=== PATIENT | female | born 1990 | race Caucasian/White ===

== ENCOUNTER 2018-09-20 19:38 | Emergency (ER) | payer OTHER, MEDICAID, SELFPAY ==
[2018-09-20 19:41] VITALS: BP 130/90; PULSE 115; RESP 18; TEMP 36.7; O2SAT 97
--- NOTE | 2018-09-20 20:55 | DI.CT.S_ITS ---
PROCEDURE: CT HEAD/BRAIN WO CON INDICATIONS: fall MS TECHNIQUE: Noncontrast 4.5 mm thick angled axial sections acquired from the foramen magnum to the vertex, with coronal and sagittal reformats. For radiation dose reduction, the following was used: automated exposure control, adjustment of mA and/or kV according to patient size. COMPARISON: None. FINDINGS: Image quality: Excellent. CSF spaces: Basal cisterns are patent. No extra-axial fluid collections. Ventricles are normal in size and shape. Brain: No midline shift. No intracranial masses or hemorrhage. Rivers-white matter interface is normal. Skull and face: Calvarium and visualized facial bones are intact, without suspicious lesions. Sinuses: Visualized sinuses and mastoids are clear. IMPRESSION: No acute intracranial abnormality. Dictated by: Syed Leslie M.D. on 09/20/2018 at 21:21 Approved by: Syed Leslie M.D. on 09/20/2018 at 21:22
--- NOTE | 2018-09-20 20:55 | DI.CT.S_ITS ---
PROCEDURE: CT CERVICAL SPINE WO CON INDICATIONS: fall nmidline pain TECHNIQUE: Noncontrast 3 mm thick sections acquired from the skull base to the T4 level. Sagittal and coronal reformats were then constructed. For radiation dose reduction, the following was used: automated exposure control, adjustment of mA and/or kV according to patient size. COMPARISON: None. FINDINGS: Image quality: Excellent. Bones: No fractures or dislocations. Visualized superior ribs are intact. Soft tissues: Prevertebral soft tissues are normal in thickness. No paravertebral hematomas. No apical pneumothoraces. IMPRESSION: No fracture. Dictated by: Syed Leslie M.D. on 09/20/2018 at 21:23 Approved by: Syed Leslie M.D. on 09/20/2018 at 21:24
--- NOTE | 2018-09-20 20:59 | ED_ITS ---
HPI - Neuro Symptoms/Deficit General Chief Complaint: Neuro Symptoms/Deficit Stated Complaint: neck pain injury/has MS today Time Seen by Provider: 09/20/18 20:51 Source: patient Mode of arrival: wheelchair Limitations: no limitations History of Present Illness HPI Narrative: Patient is a 28-year-old female who presents with ground level fall and syncope. She states that she has relapsing MS, she frequently passes out. Today she was sitting in the chair and gardening she woke up on the ground. She says that is something that has happened to her. However she is having severe neck pain. She thinks that she is having an episode of MS because her hands and feet get numb which is happening now. She was previously followed by Neurology in [place] but recently moved in does not have a current neurologist or PCP. She was diagnosed with MS by spinal tap and multiple MRIs and clinical symptoms. Onset (ago): hour(s) On Anticoagulants: No Related Data Home Medications Medication Instructions Recorded Confirmed citalopram 10 mg PO DAILY 09/20/18 09/20/18 cyclobenzaprine 5 mg PO BEDTIME PRN 09/20/18 09/20/18 gabapentin 600 mg PO TID 09/20/18 09/20/18 pantoprazole [Protonix] 40 mg PO BID 09/20/18 09/20/18 tizanidine 2 mg PO TID 09/20/18 09/20/18 Allergies Allergy/AdvReac Type Severity Reaction Status Date / Time diphenhydramine Allergy Severe Anaphylaxis Verified 09/20/18 19:47 amoxicillin Allergy Intermediate Rash Verified 09/20/18 19:47 metformin Allergy Intermediate Rash Verified 09/20/18 19:47 Penicillins Allergy Intermediate Verified 09/20/18 19:47 Sulfa (Sulfonamide Allergy Intermediate Rash Verified 09/20/18 19:47 Antibiotics) Review of Systems Review of Systems GENERAL: Denies chills, fatigue, malaise, fever, sweats, travel HEENT: Denies sinus pain, ear pain, sore throat, difficulty swallowing, neck pain RESPIRATORY: Denies dyspnea, cough, wheezing, hemoptysis, sputum. CARDIOVASCULAR: Denies chest pain, palpitations, orthopnea, edema GASTROINTESTINAL: Denies nausea, vomiting, abdominal pain, diarrhea, constipation, melena. : Denies dysuria, frequency, incontinence, hematuria, urinary retention, flank pain. MUSCULOSKELETAL: + neck pain Denies weakness, joint pain, or bony pain SKIN: No rash, no erythema, no pruritus NEUROLOGIC: See HPI PSYCHIATRIC: No concerning psychosocial issues. 12 point review of systems is negative except for those stated above and HPI [facility] Medical History Asthma (Acute) Benign tumor of groin (Acute) Diabetes (Acute) H/O: hysterectomy (Acute) Multiple sclerosis (Acute) Obesity (Acute) Surgical History H/O hernia repair (Acute) History of appendectomy (Acute) History of tonsillectomy (Acute) Hx of cholecystectomy (Acute) Social History Smoking Status: Current every day smoker Social History Smoking Status: Current every day smoker Exam Initial Vital Signs Initial Vital Signs: Vital Signs Temperature 98.1 F 09/20/18 19:41 Pulse Rate 115 H 09/20/18 19:41 Respiratory Rate 18 09/20/18 19:41 Blood Pressure 130/90 09/20/18 19:41 Pulse Oximetry 97 09/20/18 19:41 GENERAL: Overweight female appears in pain HEENT: Head atraumatic,EOMI, pupils reactive, face symmetric, [moist] mucous membranes NECK: C-collar placed in ED extreme tenderness midline CARDIOVASCULAR: Regular rate and rhythm without murmurs, rubs or gallops. RESPIRATORY: Breath sounds equal bilaterally, no wheezes rales or rhonchi. ABDOMEN: Soft, nontender. Normoactive bowel sounds all 4 quadrants. No guarding or rebound. EXTREMITIES: Normal range of motion, no clubbing or edema. Neurovascularly intact NEUROLOGICAL: Alert and oriented x4.Normal gait and speech. Cranial nerves II through XII grossly intact. Parts Counter Salesperson strength equal bilaterally decreased sensation on the right thigh similar to previous MS episodes SKIN: Warm, dry, no laceration, no petechiae, no rashes or lesions. Course Orders Ordered: ED Orders 09/20/18 20:04 EKG-12 Lead Stat 09/20/18 20:55 CT cervical spine wo con Stat CT head/brain wo con Stat 09/20/18 21:29 Complete Blood Count AUTO DIFF Stat Comprehensive Metabolic Panel Stat Discontinued Medications Hydrocodone Bitart/Acetaminophen (Vicodin Prepack) 1 bottle MISC SEEINSTR ONE Stop: 09/20/18 23:07 Last Admin: 09/20/18 23:29 Dose: 1 bottle Cyclobenzaprine HCl (Flexeril) 5 mg PO NOW ONE Stop: 09/20/18 22:21 Last Admin: 09/20/18 22:31 Dose: 5 mg Hydromorphone HCl (Dilaudid) 0.5 mg IV NOW ONE Stop: 09/20/18 22:21 Last Admin: 09/20/18 22:31 Dose: 0.5 mg Ketorolac Tromethamine (Toradol) 30 mg IV NOW ONE Stop: 09/20/18 20:57 Last Admin: 09/20/18 21:36 Dose: 30 mg Vital Signs - 8 hr 09/20/18 19:41 09/20/18 21:51 09/20/18 23:41 Temperature 98.1 F Pulse Rate 115 H 105 H 98 H Respiratory Rate 18 22 20 Blood Pressure 130/90 121/75 Blood Pressure [Right Arm] 132/72 Pulse Oximetry 97 96 98 MDM - Neuro Symptoms/Deficit Lab Data Attestation: I reviewed the patient's lab results. Result diagrams: 09/20/18 21:29 09/20/18 21:29 Lab Results 09/20/18 09/20/18 Range/Units 21:29 21:29 WBC 11.0 (4.5-11.0) X10^3/uL RBC 4.86 (4.0-5.2) X10^6/uL Hgb 13.9 (12.0-16.0) g/dL Hct 40.9 (36-46) % MCV 84.1 (80-100) fL MCH 28.7 (26-34) PG MCHC 34.1 (30-36) % RDW 14.5 (11.6-14.8) % Plt Count 207 (150-400) X10^3/uL Neut % (Auto) 64.8 (50-75) % Lymph % (Auto) 27.5 (25-40) % Cook % (Auto) 5.4 (3-14) % Eos % (Auto) 1.9 L (2-4) % Baso % (Auto) 0.4 (0-2) % Neut # (Auto) 7100 H (9702-3423) /uL Lymph # (Auto) 3000 (6123-0138) /uL Cook # (Auto) 600 (0-900) /uL Eos # (Auto) 200 (0-450) /uL Baso # (Auto) 0 (0-100) /uL Sodium 140 (137-145) mmol/L Potassium 3.4 (3.4-5.1) mmol/L Chloride 104 (98-107) mmol/L Carbon Dioxide 27 (22-32) mmol/L BUN 9 (7-17) mg/dL Creatinine 0.50 L (0.52-1.04) mg/dL Estimated GFR > 60.0 (>60) mL/min BUN/Creatinine Ratio 18.0 (6-22) Glucose 112 H (70-100) mg/dL Calcium 9.4 (8.4-10.2) mg/dL Total Bilirubin 0.2 (0.2-1.3) mg/dL AST 25 (14-36) IU/L ALT 50 (9-52) IU/L Alkaline Phosphatase 83 (38-126) U/L Total Protein 7.1 (6.3-8.2) g/dL Albumin 4.0 (3.5-5.0) g/dL Globulin 3.1 (1.7-4.1) g/dL Albumin/Globulin Ratio 1.3 (1.0-2.8) Imaging Data CT scan - head: Radiologist's impression: PROCEDURE: XR CHEST 2V INDICATIONS: short of breath TECHNIQUE: 2 views of the chest were acquired. COMPARISON: None. FINDINGS: Surgical changes and devices: None. Lungs and pleura: Lungs are clear. No pleural effusions or pneumothorax. Mediastinum: Mediastinal contours are normal. Heart size is normal. Bones and chest wall: No suspicious bony abnormalities. Soft tissues appear unremarkable. IMPRESSION: No acute process. Dictated by: Syed Leslie M.D. on 09/20/2018 at 20:39 CT Cervical: Radiologist's impression: PROCEDURE: CT CERVICAL SPINE WO CON INDICATIONS: fall nmidline pain TECHNIQUE: Noncontrast 3 mm thick sections acquired from the skull base to the T4 level. Sagittal and coronal reformats were then constructed. For radiation dose reduction, the following was used: automated exposure control, adjustment of mA and/or kV according to patient size. COMPARISON: None. FINDINGS: Image quality: Excellent. Bones: No fractures or dislocations. Visualized superior ribs are intact. Soft tissues: Prevertebral soft tissues are normal in thickness. No paravertebral hematomas. No apical pneumothoraces. IMPRESSION: No fracture. Dictated by: Syed Leslie M.D. on 09/20/2018 at 21:23 MDM Narrative Medical decision making narrative: C-collar removed by myself. She is still quite tender after Toradol. She is given some Dilaudid and Flexeril. Flexeril at home. I discussed stretching and slight movement along with heating pad. She will need a neurologist and PCP, he was given some information at the desktop publishing specialist. Discharge Plan Departure Patient Disposition: Home Clinical Impression: Cervical muscle strain Qualifiers: Encounter type: initial encounter Qualified Code(s): S16.1XXA - Strain of muscle, fascia and tendon at neck level, initial encounter Discharge Date/Time: 09/20/18 23:41 Interventions: ED Discharge Assessment Last Done: 09/20/18 23:41 Instructions: Whiplash Activity Restrictions/Additional Instructions: *You have been diagnosed with cervical strain *What to do: Increase activity as tolerated heating pad, light stretching *Continue to take medications as directed Ibuprofen 600 mg every 6 hours as needed for pain, for 1 week Winkelman 1 tablet every 6 hours if needed for pain *Follow up with your primary care provider in 2-3 days *Return to ER if you should have increased weakness, worsening numbness or tingling, or any new, worsening or concerning symptoms CONTROLLED SUBSTANCE DISCHARGE (Narcotoic/benzodiazepine/Flexeril/Phenergan) 1. You have been prescribed narcotic medications, it does have a cetaminophen/Tylenol/paracetamol in it so do not take extra Tylenol or Tylenol containing products 2. Please understand that we cannot provide further refills of narcotics, benzodiazepines or controlled substances through the ED and her pain management will need to be through your provider. 3. While on these medications you cannot drive or operate heavy machinery. 4. You cannot sign legal documents or perform any duties such as this. 5. As long as you're taking opiate pain medications he should also be taking a stool softener such as Colace, Dulcolax, MiraLAX or prune juice, to help avoid constipation. Prescriptions: No Action gabapentin 600 mg Tablet 600 mg PO TID RF: 0 cyclobenzaprine 5 mg Tablet 5 mg PO BEDTIME PRN (Reason: muscle spasms) RF: 0 tizanidine 2 mg Capsule 2 mg PO TID RF: 0 Protonix [address] For Susp In Packet 40 mg PO BID RF: 0 citalopram 10 mg Tablet 10 mg PO DAILY RF: 0
[2018-09-20] MEDS: KETOROLAC 60 MG/2 ML VIAL 30 MG IV (21:36)
[2018-09-20 21:46] LABS: Add Manual Diff / Slide Review NO; Basophils Absolute Auto 0 /uL (0-100); Basophils Percent Auto 0.4 % (0-2); Eosinophils Absolute Auto 200 /uL (0-450); Eosinophils Percent Auto 1.9 % (2-4); Hematocrit 40.9 % (36-46); Hemoglobin 13.9 g/dL (12.0-16.0); Lymphocytes Absolute Auto 3000 /uL (1100-4500); Lymphocytes Percent Auto 27.5 % (25-40); Mean Corpuscular HGB Conc 34.1 % (30-36); Mean Corpuscular Hemoglobin 28.7 PG (26-34); Mean Corpuscular Volume 84.1 fL (80-100); Monocytes Absolute Auto 600 /uL (0-900); Monocytes Percent Auto 5.4 % (3-14); Neutrophils Absolute Auto 7100 /uL (1500-7000); Neutrophils Percent Auto 64.8 % (50-75); Platelet Count 207 X10^3/uL (150-400); Red Blood Cell Count 4.86 X10^6/uL (4.0-5.2); Red Cell Distribution Width 14.5 % (11.6-14.8)
[2018-09-20 21:51] VITALS: BP 132/72; PULSE 105; RESP 22; O2SAT 96
[2018-09-20 21:58] LABS: Alanine Aminotransferase 50 IU/L (9-52); Albumin Globulin Ratio 1.3 (1.0-2.8); Alkaline Phosphatase 83 U/L (38-126); Aspartate Aminotransferase 25 IU/L (14-36); Bilirubin Total 0.2 mg/dL (0.2-1.3); Blood Urea Nitrogen 9 mg/dL (7-17); Calcium 9.4 mg/dL (8.4-10.2); Carbon Dioxide 27 mmol/L (22-32); Chloride 104 mmol/L (98-107); Estimated Glomerular Filt Rate > 60.0 mL/min (>60); Globulin 3.1 g/dL (1.7-4.1); Glucose 112 mg/dL (70-100); HEMOLYSIS < 15 (0-50); Potassium 3.4 mmol/L (3.4-5.1); Sodium 140 mmol/L (137-145); Total Protein 7.1 g/dL (6.3-8.2)
[2018-09-20] MEDS: HYDROMORPHONE 1 MG INJ 0.5 MG IV (22:31)
[2018-09-20] MEDS: CYCLOBENZAPRINE 5 MG TABLET PO (22:31)
[2018-09-20] MEDS: HYDROCODONE/ACET 5/325 PREPACK 1 BOTTLE MISC (23:29)
[2018-09-20 23:41] VITALS: BP 121/75; PULSE 98; RESP 20; O2SAT 98
== END 2018-09-20 23:41 | disposition home or self-care (01) ==
PROVIDERS: Emergency Provider Emergency Medicine
DX: S16.1XXA Strain of muscle, fascia and tendon at neck level, initial encounter (principal); R55 Syncope and collapse; W18.30XA Fall on same level, unspecified, initial encounter
CPT/HCPCS: 36591; 70450; 72125; 80053; 85025; 93005; 96374; 96375; 99283; 99285; J1170; J1885

== ENCOUNTER 2018-10-14 11:36 | Emergency (ER) | payer SELFPAY ==
[2018-10-14 11:46] VITALS: PULSE 98; RESP 18; TEMP 36.4; O2SAT 98
== END 2018-10-14 13:39 | disposition left against medical advice (07) ==
PROVIDERS: Emergency Provider Emergency Medicine
DX: Z53.21 Procedure and treatment not carried out due to patient leaving prior to being seen by health care provider (principal)
CPT/HCPCS: 99281

== ENCOUNTER 2018-10-16 15:21 | Emergency (ER) | payer OTHER, MEDICAID, SELFPAY ==
[2018-10-16 15:27] VITALS: BP 141/86; PULSE 108; RESP 18; TEMP 36.6; O2SAT 97; BMI 39.9
--- NOTE | 2018-10-16 17:06 | ED_ITS ---
HPI - Neck Pain/Injury General Chief Complaint: Neck Pain/Injury Stated Complaint: neck pain and pain down right arm Time Seen by Provider: 10/16/18 16:51 Source: patient, family () and old records reviewed Mode of arrival: ambulatory Limitations: no limitations History of Present Illness HPI Narrative: This is a 28-year-old female comes emergency department with complaint of neck pain. Patient states that she started having pain about a month ago. She was seen on September 20, she states that she had episode which caused her to fall she had head CT and CT the cervical spine which were both negative. Patient states that she was diagnosed with MS in [place]. She states she has had MRIs as well as evaluation there. She normally takes 10 as needed, gabapentin as as needed she states that she typically gets back pain sometimes pain in her hips as well as numbness in her feet and sometimes numbness in her face and throat. She states that she has pain that radiating down the arms, particularly the right that she has tingling and or numbness. Patient states that she has been able to move her arms. She has been able to ambulate. She has not established with a neurologist locally. She states that she has had some additional episodes and sometimes occasionally falls with these. Most recently was today. Patient states that the pain has been constant, it has been gradually increasing. It did not ever resolved. She has been alternating ibuprofen and Tylenol for pain control. She states she came in today because her daughter is at [facility] for psychiatric care and so they were available to come to the ER. Related Data Home Medications Medication Instructions Recorded Confirmed citalopram 10 mg PO DAILY 09/20/18 10/14/18 cyclobenzaprine 5 mg PO BEDTIME PRN 09/20/18 10/14/18 gabapentin 600 mg PO TID 09/20/18 10/14/18 pantoprazole [Protonix] 40 mg PO BID 09/20/18 10/14/18 tizanidine 2 mg PO TID 09/20/18 10/14/18 acetaminophen [Tylenol Extra 1,000 mg PO Q6H PRN 10/14/18 10/14/18 Strength] ibuprofen 600 mg PO QID PRN 10/14/18 10/14/18 Previous Rx's Medication Instructions Recorded diazepam [Valium] 2 mg PO BID PRN #10 tab 10/16/18 meloxicam [Mobic] 7.5 mg PO DAILY PRN #10 tab 10/16/18 prednisone 50 mg PO DAILY #5 tab 10/16/18 Allergies Allergy/AdvReac Type Severity Reaction Status Date / Time diphenhydramine Allergy Severe Anaphylaxis Verified 10/16/18 15:32 amoxicillin Allergy Intermediate Rash Verified 10/16/18 15:32 metformin Allergy Intermediate Rash Verified 10/16/18 15:32 Penicillins Allergy Intermediate Verified 10/16/18 15:32 Sulfa (Sulfonamide Allergy Intermediate Rash Verified 10/16/18 15:32 Antibiotics) Review of Systems Review of Systems ROS Unobtainable: All systems reviewed & are unremarkable except as noted in HPI and below Constitutional Denies chills, Denies fever(s), Denies lethargy and Denies weakness ENT Ears, Nose, Mouth, and Throat: Denies vertigo, Denies dizziness and Reports neck pain Cardiovascular Denies chest pain, Denies diaphoresis, Denies syncope, Denies dyspnea and Denies dyspnea on exertion Respiratory Denies chest congestion, Denies cough, Denies dyspnea, Denies dyspnea on exertion and Denies wheezing Gastrointestinal Gastrointestinal: Denies abdominal pain, Denies change in bowel habits, Denies fecal incontinence, Denies diarrhea, Denies nausea and Denies vomiting Genitourinary Denies hematuria, Denies flank pain, Denies urinary incontinence and Denies urinary urgency Musculoskeletal Reports as per HPI, Denies abnormal gait, Denies back pain, Reports limited range of motion, Denies muscle weakness, Reports neck pain, Reports numbness, Reports radiating pain into limb (Bilateral arms right greater) and Reports tingling Integumentary/Breasts Denies erythema, Denies rash and Denies unusual bruising Neurologic Denies abnormal movements, Denies abnormal gait, Denies vertigo, Denies dizziness, Denies syncope, Denies focal weakness, Reports numbness, Reports tingling and Denies weakness Allergic/Immunologic Denies wheezing [facility] Social History Smoking Status: Current every day smoker Exam Narrative Exam Narrative: GEN: Obese female, alert and oriented x 3, patient appears to be in moderate distress. HEENT: Atraumatic, pupils are equal round reactive to light, extraocular movements are intact, nares are clear, TMs are clear with no fluid, there is no conjunctival pallor. Throat is clear without any exudates, erythema, tonsillar enlargement or uvular deviation HEART: Regular rate and rhythm without murmur, clicks, rubs. LUNGS:Lungs clear to auscultation, no wheezes, rales, crackles, chest moves symmetrically ABD:bowel sounds normal, soft, non-tender, no guarding, rebound, rigidity, no masses noted, no hepatosplenomegaly :No CVA tenderness BACK: Patient has cervical tenderness throughout the neck. She also has tenderness in the lumbar spine. Patient has muscle tightness/spasm bilaterally in the paraspinals. Patient has normal range of motion, although patient appears uncomfortable sitting up. Patient's gait is normal. Rectal exam is deferred. Muscle strength is 5/5 in upper and lower extremities, DTRs are 2/4 upper and lower extremities. 2+ radial pulses bilaterally. Sensation is intact in the upper and lower extremities. 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 NEURO:CN 2-12 intact, sensation normal. Initial Vital Signs Initial Vital Signs: Vital Signs Temperature 97.8 F 10/16/18 15:27 Pulse Rate 108 H 10/16/18 15:27 Respiratory Rate 18 10/16/18 15:27 Blood Pressure 141/86 H 10/16/18 15:27 Pulse Oximetry 97 10/16/18 15:27 Scores GCS [place] coma scale eye opening: Spontaneous [place] coma scale verbal response: Orientated [place] coma scale motor response: Obey commands Aries coma scale total score: 15 Course Orders Ordered: Discontinued Medications Diazepam (Valium) 5 mg PO NOW ONE Stop: 10/16/18 17:08 Last Admin: 10/16/18 17:48 Dose: 5 mg Ketorolac Tromethamine (Toradol) 60 mg IM NOW ONE Stop: 10/16/18 17:08 Last Admin: 10/16/18 17:48 Dose: 60 mg Prednisone (Deltasone) 60 mg PO NOW ONE Stop: 10/16/18 17:19 Last Admin: 10/16/18 17:48 Dose: 60 mg Tramadol HCl (Ultram 50mg Prepack) 1 bottle MISC SEEINSTR ONE Stop: 10/16/18 18:27 Vital Signs - 8 hr 10/16/18 15:27 Temperature 97.8 F Pulse Rate 108 H Respiratory Rate 18 Blood Pressure 141/86 H Pulse Oximetry 97 MDM - Neck Pain/Injury MDM Narrative Medical decision making narrative: Discussed with patient I do not have imaging capabilities for MRI today, she does not have any acute neurologic changes that are suspicious for warranting emergent MRI and transfer. We discussed possibly doing a repeat CT, she did have repeat fall today but patient is also tender throughout the spine not just in her cervical. Discussed risks versus benefit with patient and was sure dismisses making was decided that the risks of radiation exposure outweighs the benefits of repeat imaging today. Patient and I discussed that there is a potential she could be having a flare of her MS. We discussed referring her to Neurology. Doing a short course of steroids, pain control and muscle relaxant. Patient states that she is starting to run out of her muscle relaxers. Patient was sleeping when I came into the room. She states that her pain is still present but she was able to rest. Discussed signs and symptoms to watch for reasons to return. Plan for short course of steroids, patient would prefer to use our muscle relaxant today, we discussed she cannot combine these medications with her regular medications. Given a prescription for some meloxicam as well. Patient was given referral for Neurology. Discussed red flag symptoms for return. Discharge Plan Departure Patient Disposition: Home Clinical Impression: Neck pain Discharge Date/Time: 10/16/18 18:39 Instructions: DI for Neck Pain Activity Restrictions/Additional Instructions: Follow-up with your physician at your appointment on 10/25/2018. Call for follow-up with Neurology. Take steroids until gone. Take medications as prescribed these medications can make you sleepy do not drive, perform hazards activities or make any major decisions while taking them. Return to the emergency department for new weakness decreased farm forestry and garden workers, and limited to lift or hold objects, loss of bowel or bladder control, rapidly worsening symptoms, altered mental status, new shortness of breath, new chest pain or pressure, swelling in her extremities or other new or concerning symptoms. Prescriptions: New diazepam [Valium] 2 mg tablet 2 mg PO BID PRN (Reason: muscle spasm) Qty: 10 RF: 0 prednisone 50 mg tablet 50 mg PO DAILY Qty: 5 RF: 0 meloxicam [Mobic] 7.5 mg tablet 7.5 mg PO DAILY PRN (Reason: pain) Qty: 10 RF: 0 No Action gabapentin 600 mg Tablet 600 mg PO TID RF: 0 cyclobenzaprine 5 mg Tablet 5 mg PO BEDTIME PRN (Reason: muscle spasms) RF: 0 tizanidine 2 mg Capsule 2 mg PO TID RF: 0 Protonix [address] For Susp In Packet 40 mg PO BID RF: 0 citalopram 10 mg Tablet 10 mg PO DAILY RF: 0 acetaminophen [Tylenol Extra Strength] 500 mg Tablet 1,000 mg PO Q6H PRN (Reason: Pain (Scale Score 4-6)) RF: 0 ibuprofen 600 mg Tablet 600 mg PO QID PRN (Reason: Pain (Scale Score 4-6)) RF: 0 Referrals: Domo Lucio MD [Non-Staff] -
[2018-10-16] MEDS: KETOROLAC 60 MG/2 ML VIAL IM (17:48)
[2018-10-16] MEDS: diazePAM 5 MG TABLET PO (17:48)
[2018-10-16] MEDS: predniSONE 20 MG TABLET 60 MG PO (17:48)
[2018-10-16] MEDS: TRAMADOL 50 MG PREPACK 1 BOTTLE MISC (18:33)
[2018-10-16 18:40] VITALS: BP 136/74; PULSE 97; RESP 18; O2SAT 100
== END 2018-10-16 18:39 | disposition home or self-care (01) ==
PROVIDERS: Emergency Provider Emergency Medicine
DX: M54.2 Cervicalgia (principal)
CPT/HCPCS: 96372; 99282; 99283; J1885

== ENCOUNTER 2018-10-26 11:19 | Emergency (ER) | payer OTHER, MEDICAID, SELFPAY ==
[2018-10-26 11:28] VITALS: BP 121/59; PULSE 101; RESP 19; TEMP 36.7; O2SAT 98; BMI 39.6
--- NOTE | 2018-10-26 11:48 | ED.ABDPAIN ---
HPI - Abdominal Pain <Grisel ZavalaVEENA - Last Filed: 10/26/18 19:52> General Chief Complaint: Abdominal Pain Stated Complaint: pain in stomach Time Seen by Provider: 10/26/18 11:37 Source: patient Mode of arrival: ambulatory Limitations: no limitations History of Present Illness HPI narrative: 28-year-old female with a history of a hysterectomy, cholecystectomy, an appendectomy, presents emergency department today complaining of a sudden onset of severe sharp 10/10 constant umbilical pain that started 4 days ago. She states the pain is worse when she moves and worse when she presses on the area, denies anything that makes it better. She reports associated nausea and decreased appetite. Denies radiation of the pain. Denies fevers, chills, shortness of breath, vomiting, diarrhea, constipation, vaginal discharge, back pain, or dysuria. MD complaint: abdominal pain Onset (ago): hour(s) Pain Consistency: constant Location: periumbilical Severity: severe Severity scale (1-10): 10 Quality: stabbing and sharp Radiation: none Exacerbating factors: movement Associated symptoms: nausea Related Data Home Medications Medication Instructions Recorded Confirmed citalopram 10 mg PO DAILY 09/20/18 10/26/18 cyclobenzaprine 5 mg PO BEDTIME PRN 09/20/18 10/26/18 gabapentin 600 mg PO TID 09/20/18 10/26/18 pantoprazole [Protonix] 40 mg PO BID 09/20/18 10/26/18 acetaminophen [Tylenol Extra 1,000 mg PO Q6H PRN 10/14/18 10/26/18 Strength] ibuprofen 600 mg PO QID PRN 10/14/18 10/26/18 pioglitazone 15 mg PO DAILY 10/26/18 10/26/18 sitagliptin [Januvia] 100 mg PO DAILY 10/26/18 10/26/18 tizanidine 2 mg PO TID 10/26/18 10/26/18 Previous Rx's Medication Instructions Recorded diazepam [Valium] 2 mg PO BID PRN #10 tab 10/16/18 meloxicam [Mobic] 7.5 mg PO DAILY PRN #10 tab 10/16/18 Allergies Allergy/AdvReac Type Severity Reaction Status Date / Time diphenhydramine Allergy Severe Anaphylaxis Verified 10/26/18 11:28 amoxicillin Allergy Intermediate Rash Verified 10/26/18 11:28 metformin Allergy Intermediate Rash Verified 10/26/18 11:28 Penicillins Allergy Intermediate Verified 10/26/18 11:28 Sulfa (Sulfonamide Allergy Intermediate Rash Verified 10/26/18 11:28 Antibiotics) Review of Systems <VEENA Sy - Last Filed: 10/26/18 19:52> Review of Systems REVIEW OF SYSTEMS: GENERAL: Denies fever, chills, malaise, or wt. loss. HENT: No head trauma, sore throat, or dysphagia. EYES: No loss of vision, double vision, eye pain, or irritation. CARDIOVASCULAR: No chest pain, palpitations, or orthopnea. RESPIRATORY: No shortness of breath or cough. GASTROINTESTINAL: Complains of abdominal pain, see HPI GENITOURINARY: No flank pain, urinary incontinence, hesitancy, frequency, or dysuria. Nor dyspareunia. Denies concerns for STIs. Complains of slightly increased vaginal discharge. MUSCULOSKELETAL: No pain, weakness, or trauma. INTEGUMENTARY: No rash, lesions, or pruritus. NEURO: No numbness, tingling, memory loss, confusion, or headaches. PSYCH: No behavior or mood changes. PFSH <VEENA Sy - Last Filed: 10/26/18 19:52> Medical History Asthma (Acute) Benign tumor of groin (Acute) Diabetes (Acute) H/O: hysterectomy (Acute) Multiple sclerosis (Acute) Obesity (Acute) Surgical History H/O hernia repair (Acute) History of appendectomy (Acute) History of tonsillectomy (Acute) Hx of cholecystectomy (Acute) Social History Smoking Status: Current every day smoker Social History Smoking Status: Current every day smoker Exam <VEENA Sy - Last Filed: 10/26/18 19:52> Initial Vital Signs Initial Vital Signs: Vital Signs Temperature 98.0 F 10/26/18 11:28 Pulse Rate 101 H 10/26/18 11:28 Respiratory Rate 10/26/18 11:28 Blood Pressure 121/59 L 10/26/18 11:28 Pulse Oximetry 98 10/26/18 11:28 PHYSICAL EXAMINATION: GENERAL: alert and cooperative. Answers questions promptly and appropriately. Vital signs noted. Patient is seen holding her stomach during exam and complaining consistently of pain while withdrawing. Later on during the stay she was asleep, when a healthcare provider walks into the room she wakes up and begins to hold her stomach. HENT: Normocephalic, atraumatic. Hearing intact. Oral mucosa is pink and moist. EYES: Conjunctiva pink, sclera white, no periorbital swelling. CARDIOVASCULAR: S1 and S2 sounds normal. Regular rate and rhythm, no murmurs, clicks, or bruits. No pedal edema. RESPIRATORY: Normal respiratory rate, trachea midline, airway patent. No stridor, nasal flaring or accessory muscle use. Lungs are clear in all judge without wheeze, rhonchi, or crackles. GASTROINTESTINAL: Bowel sounds normoactive. Abdomen is soft and nondistended, tenderness with deep palpation to upper right umbilical area. No organomegaly, no reducible hernias palpated. GENITALURINARY: No flank tenderness. Speculum exam was performed, under amount of white discharge was seen, no erythema, cervix was not visualized due to hysterectomy. Slight right-sided and axial tenderness with bimanual exam. Lab swab was obtained for BV and [place]. MUSCULOSKELETAL: Normal gait and coordination. Equal tone and mass bilaterally. EXTREMITIES: CMS intact, no pedal edema. SKIN: Warm, dry, soft, appropriate color for ethnicity. No lesions, rashes, or wounds. NEURO: Alert and Oriented X 3. Good coordination. No ataxia, or sensory deficits, or cognitive issues. PSYCH: Appropriate affect and mood. <Sharon Lucero MD - Last Filed: 11/06/18 07:58> Initial Vital Signs Initial Vital Signs: Vital Signs Temperature 98.0 F 10/26/18 11:28 Pulse Rate 101 H 10/26/18 11:28 Respiratory Rate 10/26/18 11:28 Blood Pressure 121/59 L 10/26/18 11:28 Pulse Oximetry 98 10/26/18 11:28 Course <VEENA Sy - Last Filed: 10/26/18 19:52> Orders Ordered: Discontinued Medications Sodium Chloride (Normal Saline 0.9%) 1,000 mls @ 1,000 mls/hr IV BOLUS ONE Stop: 10/26/18 12:43 Last Infusion: 10/26/18 13:17 Dose: 0 mls/hr Admin: 10/26/18 12:17 Dose: 1,000 mls/hr Ketorolac Tromethamine (Toradol) 30 mg IV NOW ONE Stop: 10/26/18 11:45 Last Admin: 10/26/18 12:17 Dose: 30 mg Morphine Sulfate (Morphine) 2 mg IV NOW ONE Stop: 10/26/18 14:46 Last Admin: 10/26/18 14:54 Dose: 2 mg Ondansetron HCl (Zofran) 4 mg IV NOW ONE Stop: 10/26/18 11:45 Last Admin: 10/26/18 12:17 Dose: 4 mg Reevaluation(s) Reevaluation #1: Patient states her pain is slightly resolving after the Toradol. Extensive conversation was had about follow-up. Consultations Consultation #1: Consulted with Dr. Lucero. Vital Signs - 8 hr 10/26/18 12:55 10/26/18 13:00 10/26/18 13:30 Pulse Rate 80 90 70 Respiratory Rate 17 18 Blood Pressure [Right Arm] 123/85 108/58 L 98/40 L Pulse Oximetry 98 96 95 10/26/18 14:00 10/26/18 14:30 Pulse Rate 72 81 Respiratory Rate 18 Blood Pressure [Right Arm] 113/48 L 113/71 Pulse Oximetry 94 93 <Sharon Lucero MD - Last Filed: 11/06/18 07:58> Orders Ordered: Discontinued Medications Sodium Chloride (Normal Saline 0.9%) 1,000 mls @ 1,000 mls/hr IV BOLUS ONE Stop: 10/26/18 12:43 Last Infusion: 10/26/18 13:17 Dose: 0 mls/hr Admin: 10/26/18 12:17 Dose: 1,000 mls/hr Ketorolac Tromethamine (Toradol) 30 mg IV NOW ONE Stop: 10/26/18 11:45 Last Admin: 10/26/18 12:17 Dose: 30 mg Morphine Sulfate (Morphine) 2 mg IV NOW ONE Stop: 10/26/18 14:46 Last Admin: 10/26/18 14:54 Dose: 2 mg Ondansetron HCl (Zofran) 4 mg IV NOW ONE Stop: 10/26/18 11:45 Last Admin: 10/26/18 12:17 Dose: 4 mg Vital Signs - 8 hr 10/26/18 12:55 10/26/18 13:00 10/26/18 13:30 Pulse Rate 80 90 70 Respiratory Rate 17 18 Blood Pressure [Right Arm] 123/85 108/58 L 98/40 L Pulse Oximetry 98 96 95 10/26/18 14:00 10/26/18 14:30 Pulse Rate 72 81 Respiratory Rate 18 Blood Pressure [Right Arm] 113/48 L 113/71 Pulse Oximetry 94 93 MDM - Abdominal Pain <VEENA Sy - Last Filed: 10/26/18 19:52> Medical Records Attestation: I reviewed the patient's medical records. Lab Data Attestation: I reviewed the patient's lab results. Result diagrams: 10/26/18 11:42 10/26/18 11:42 Lab Results 10/26/18 10/26/18 10/26/18 Range/Units 11:42 11:42 11:42 WBC 12.1 H (4.5-11.0) X10^3/uL RBC 4.84 (4.0-5.2) X10^6/uL Hgb 14.0 (12.0-16.0) g/dL Hct 41.8 (36-46) % MCV 86.3 (80-100) fL MCH 28.9 (26-34) PG MCHC 33.4 (30-36) % RDW 14.3 (11.6-14.8) % Plt Count 206 (150-400) X10^3/uL Neut % (Auto) 72.6 (50-75) % Lymph % (Auto) 21.2 L (25-40) % [place] % (Auto) 3.9 (3-14) % Eos % (Auto) 1.2 L (2-4) % Baso % (Auto) 1.1 (0-2) % Neut # (Auto) 8800 H (7749-3797) /uL Lymph # (Auto) 2600 (4414-4225) /uL [place] # (Auto) 500 (0-900) /uL Eos # (Auto) 100 (0-450) /uL Baso # (Auto) 100 (0-100) /uL PT 11.6 (10.1-12.7) SECONDS INR 1.0 (0.9-1.3) APTT 30 (26.4-36.2) SECONDS Sodium 139 (137-145) mmol/L Potassium 4.1 (3.4-5.1) mmol/L Chloride 106 (98-107) mmol/L Carbon Dioxide 23 (22-32) mmol/L BUN 9 (7-17) mg/dL Creatinine 0.50 L (0.52-1.04) mg/dL Estimated GFR > 60.0 (>60) mL/min BUN/Creatinine Ratio 18.0 (6-22) Glucose 153 H (70-100) mg/dL Calcium 9.2 (8.4-10.2) mg/dL Total Bilirubin 0.5 (0.2-1.3) mg/dL AST 46 H (14-36) IU/L ALT 61 H (9-52) IU/L Alkaline Phosphatase 68 (38-126) U/L Total Protein 7.3 (6.3-8.2) g/dL Albumin 4.1 (3.5-5.0) g/dL Globulin 3.2 (1.7-4.1) g/dL Albumin/Globulin Ratio 1.3 (1.0-2.8) Lipase 152 (23-300) U/L Point of care testing: Urine Dip Bedside Urine Glucose Negative Bedside Urine Bilirubin - Negative Bedside Urine Ketone - Negative Urine Specific [place] 1.025 Bedside Urine Occult Blood - Negative Bedside Urine pH 6.0 Bedside Urine Protein +/- 15 Bedside Urine Urobilinogen +/- 1mg Bedside Urine Nitrite - Negative Bedside Urine Leukocytes - Negative Esterase Imaging Data CT scan - abdomen: Radiologist's impression: [address] [address] [address] Scan Report Signed Patient: Muna Swift [facility]#: [id number] : 1990Acct:[id number] Age/Sex: 28 / FDate of Service: 10/26/18 Loc: ED Accession Number: [id number] Procedure: CT abdomen pelvis w con Ordering Provider: Hedlin,Grisel HOME APPLIANCE TECHNICIAN PROCEDURE: CT ABDOMEN PELVIS W CON INDICATIONS: Severe umbilical pain x 4 days, multiple surgeries. TECHNIQUE: After the administration of intravenous contrast, 5 mm thick sections acquired from the diaphragm to the symphysis. 5 mm coronal and sagittal reformats were acquired. For radiation dose reduction, the following was used: automated exposure control, adjustment of mA and/or kV according to patient size. COMPARISON: None. FINDINGS: Image quality: Excellent. ABDOMEN: Lung bases: Lung bases are clear. Heart size is normal. Solid organs: Liver is prominent in size and enhancement. Diffuse fatty liver infiltration is noted. Gallbladder has been removed. Biliary system is non dilated. Pancreas enhances normally. Spleen is normal in size and enhancement. No adrenal nodules. Kidneys demonstrate normal size and enhancement, without hydronephrosis. Peritoneum and bowel: Bowel loops demonstrate normal wall thickness and caliber. No free fluid or air. No appendix is seen, either normal or abnormal. No focal quadrant inflammatory changes are seen. Nodes and vessels: No retroperitoneal or mesenteric adenopathy by size criteria. Aorta and inferior vena cava are normal in size. Miscellaneous: A mild periumbilical hernia is seen, containing fat. No additional umbilical region abnormalities are seen. PELVIS: Genitourinary: Bladder wall thickness is normal. This patient is status post hysterectomy. No adnexal masses are seen. Miscellaneous: No inguinal hernias or adenopathy. Bones: No suspicious bony lesions. No vertebral body compression fractures. IMPRESSION: There is a small periumbilical hernia seen, which contains fat. No additional umbilical region abnormality is seen in this patient with a presenting history of severe umbilical pain. No appendix is seen, either normal or abnormal. Incidental note is made of: Cholecystectomy Prominent, fatty liver Hysterectomy Dictated by: Nigel Escudero M.D. on 10/26/2018 at 11:32 Approved by: Nigel Escudero M.D. on 10/26/2018 at 11:35 MDM Narrative Medical decision making narrative: I suspect that her abdominal pain is caused from her hernia and or possible adhesions due to multiple surgeries. Very little suspicion of acute surgical abdomen due to CT findings of no acute process, normal laboratories results, lack of systemic symptoms, as well as the fact that patient has had both her gallbladder, appendix, and uterus removed. Less likely ovarian cyst as her ovaries were removed as well. Less likely vaginitis due to lack of findings on the wet mount as well as a normal pelvic exam. Patient was encouraged to follow up with her primary care provider. Strict return precautions were given. <Sharon Lucero MD - Last Filed: 11/06/18 07:58> Lab Data Lab Results 10/26/18 10/26/18 10/26/18 Range/Units 11:42 11:42 11:42 WBC 12.1 H (4.5-11.0) X10^3/uL RBC 4.84 (4.0-5.2) X10^6/uL Hgb 14.0 (12.0-16.0) g/dL Hct 41.8 (36-46) % MCV 86.3 (80-100) fL MCH 28.9 (26-34) PG MCHC 33.4 (30-36) % RDW 14.3 (11.6-14.8) % Plt Count 206 (150-400) X10^3/uL Neut % (Auto) 72.6 (50-75) % Lymph % (Auto) 21.2 L (25-40) % [place] % (Auto) 3.9 (3-14) % Eos % (Auto) 1.2 L (2-4) % Baso % (Auto) 1.1 (0-2) % Neut # (Auto) 8800 H (6058-3232) /uL Lymph # (Auto) 2600 (2223-0939) /uL [place] # (Auto) 500 (0-900) /uL Eos # (Auto) 100 (0-450) /uL Baso # (Auto) 100 (0-100) /uL PT 11.6 (10.1-12.7) SECONDS INR 1.0 (0.9-1.3) APTT 30 (26.4-36.2) SECONDS Sodium 139 (137-145) mmol/L Potassium 4.1 (3.4-5.1) mmol/L Chloride 106 (98-107) mmol/L Carbon Dioxide 23 (22-32) mmol/L BUN 9 (7-17) mg/dL Creatinine 0.50 L (0.52-1.04) mg/dL Estimated GFR > 60.0 (>60) mL/min BUN/Creatinine Ratio 18.0 (6-22) Glucose 153 H (70-100) mg/dL Calcium 9.2 (8.4-10.2) mg/dL Total Bilirubin 0.5 (0.2-1.3) mg/dL AST 46 H (14-36) IU/L ALT 61 H (9-52) IU/L Alkaline Phosphatase 68 (38-126) U/L Total Protein 7.3 (6.3-8.2) g/dL Albumin 4.1 (3.5-5.0) g/dL Globulin 3.2 (1.7-4.1) g/dL Albumin/Globulin Ratio 1.3 (1.0-2.8) Lipase 152 (23-300) U/L Point of care testing: Urine Dip Bedside Urine Glucose Negative Bedside Urine Bilirubin - Negative Bedside Urine Ketone - Negative Urine Specific [place] 1.025 Bedside Urine Occult Blood - Negative Bedside Urine pH 6.0 Bedside Urine Protein +/- 15 Bedside Urine Urobilinogen +/- 1mg Bedside Urine Nitrite - Negative Bedside Urine Leukocytes - Negative Esterase Discharge Plan Departure Patient Disposition: Home Clinical Impression: Abdominal pain Qualifiers: Abdominal location: periumbilical Qualified Code(s): R10.33 - Periumbilical pain Discharge Date/Time: 10/26/18 15:13 Interventions: ED Discharge Assessment Last Done: 10/26/18 15:01 Instructions: DI for Abdominal Pain-Adult Activity Restrictions/Additional Instructions: Thank you for entrusting me with your care today. As discussed, your CT, blood work, urine, and vaginal swabs were negative for signs of acute infection or concerning results of would indicate the reason why you are having pain. It is possible that you may have adhesions due to multiple abdominal surgeries. Please follow up with her primary care provider for further evaluation and testing if needed. He may continue to take ibuprofen for pain. Return to the emergency department if you have uncontrollable vomiting, high fevers, shortness of breath, or chest pain. Prescriptions: No Action diazepam [Valium] 2 mg tablet 2 mg PO BID PRN (Reason: muscle spasm) Qty: 10 RF: 0 meloxicam [Mobic] 7.5 mg tablet 7.5 mg PO DAILY PRN (Reason: pain) Qty: 10 RF: 0 gabapentin 600 mg Tablet 600 mg PO TID RF: 0 cyclobenzaprine 5 mg Tablet 5 mg PO BEDTIME PRN (Reason: muscle spasms) RF: 0 Protonix [address] For Susp In Packet 40 mg PO BID RF: 0 citalopram 10 mg Tablet 10 mg PO DAILY RF: 0 acetaminophen [Tylenol Extra Strength] 500 mg Tablet 1,000 mg PO Q6H PRN (Reason: Pain (Scale Score 4-6)) RF: 0 ibuprofen 600 mg Tablet 600 mg PO QID PRN (Reason: Pain (Scale Score 4-6)) RF: 0 pioglitazone 15 mg tablet 15 mg PO DAILY RF: 0 Januvia 100 mg tablet 100 mg PO DAILY RF: 0 tizanidine 2 mg Tablet 2 mg PO TID RF: 0
--- NOTE | 2018-10-26 11:51 | ED_ITS ---
HPI - Abdominal Pain <Grisel ZavalaVEENA - Last Filed: 10/26/18 19:52> General Chief Complaint: Abdominal Pain Stated Complaint: pain in stomach Time Seen by Provider: 10/26/18 11:37 Source: patient Mode of arrival: ambulatory Limitations: no limitations History of Present Illness HPI narrative: 28-year-old female with a history of a hysterectomy, cholecystectomy, an appendectomy, presents emergency department today complaining of a sudden onset of severe sharp 10/10 constant umbilical pain that started 4 days ago. She states the pain is worse when she moves and worse when she presses on the area, denies anything that makes it better. She reports associated nausea and decreased appetite. Denies radiation of the pain. Denies fevers, chills, shortness of breath, vomiting, diarrhea, constipation, vaginal discharge, back pain, or dysuria. MD complaint: abdominal pain Onset (ago): hour(s) Pain Consistency: constant Location: periumbilical Severity: severe Severity scale (1-10): 10 Quality: stabbing and sharp Radiation: none Exacerbating factors: movement Associated symptoms: nausea Related Data Home Medications Medication Instructions Recorded Confirmed citalopram 10 mg PO DAILY 09/20/18 10/26/18 cyclobenzaprine 5 mg PO BEDTIME PRN 09/20/18 10/26/18 gabapentin 600 mg PO TID 09/20/18 10/26/18 pantoprazole [Protonix] 40 mg PO BID 09/20/18 10/26/18 acetaminophen [Tylenol Extra 1,000 mg PO Q6H PRN 10/14/18 10/26/18 Strength] ibuprofen 600 mg PO QID PRN 10/14/18 10/26/18 pioglitazone 15 mg PO DAILY 10/26/18 10/26/18 sitagliptin [Januvia] 100 mg PO DAILY 10/26/18 10/26/18 tizanidine 2 mg PO TID 10/26/18 10/26/18 Previous Rx's Medication Instructions Recorded diazepam [Valium] 2 mg PO BID PRN #10 tab 10/16/18 meloxicam [Mobic] 7.5 mg PO DAILY PRN #10 tab 10/16/18 Allergies Allergy/AdvReac Type Severity Reaction Status Date / Time diphenhydramine Allergy Severe Anaphylaxis Verified 10/26/18 11:28 amoxicillin Allergy Intermediate Rash Verified 10/26/18 11:28 metformin Allergy Intermediate Rash Verified 10/26/18 11:28 Penicillins Allergy Intermediate Verified 10/26/18 11:28 Sulfa (Sulfonamide Allergy Intermediate Rash Verified 10/26/18 11:28 Antibiotics) Review of Systems <VEENA Sy - Last Filed: 10/26/18 19:52> Review of Systems REVIEW OF SYSTEMS: GENERAL: Denies fever, chills, malaise, or wt. loss. HENT: No head trauma, sore throat, or dysphagia. EYES: No loss of vision, double vision, eye pain, or irritation. CARDIOVASCULAR: No chest pain, palpitations, or orthopnea. RESPIRATORY: No shortness of breath or cough. GASTROINTESTINAL: Complains of abdominal pain, see HPI GENITOURINARY: No flank pain, urinary incontinence, hesitancy, frequency, or dysuria. Nor dyspareunia. Denies concerns for STIs. Complains of slightly increased vaginal discharge. MUSCULOSKELETAL: No pain, weakness, or trauma. INTEGUMENTARY: No rash, lesions, or pruritus. NEURO: No numbness, tingling, memory loss, confusion, or headaches. PSYCH: No behavior or mood changes. PFSH <VEENA Sy - Last Filed: 10/26/18 19:52> Medical History Asthma (Acute) Benign tumor of groin (Acute) Diabetes (Acute) H/O: hysterectomy (Acute) Multiple sclerosis (Acute) Obesity (Acute) Surgical History H/O hernia repair (Acute) History of appendectomy (Acute) History of tonsillectomy (Acute) Hx of cholecystectomy (Acute) Social History Smoking Status: Current every day smoker Social History Smoking Status: Current every day smoker Exam <VEENA Sy - Last Filed: 10/26/18 19:52> Initial Vital Signs Initial Vital Signs: Vital Signs Temperature 98.0 F 10/26/18 11:28 Pulse Rate 101 H 10/26/18 11:28 Respiratory Rate 10/26/18 11:28 Blood Pressure 121/59 L 10/26/18 11:28 Pulse Oximetry 98 10/26/18 11:28 PHYSICAL EXAMINATION: GENERAL: alert and cooperative. Answers questions promptly and appropriately. Vital signs noted. Patient is seen holding her stomach during exam and complaining consistently of pain while withdrawing. Later on during the stay she was asleep, when a healthcare provider walks into the room she wakes up and begins to hold her stomach. HENT: Normocephalic, atraumatic. Hearing intact. Oral mucosa is pink and moist. EYES: Conjunctiva pink, sclera white, no periorbital swelling. CARDIOVASCULAR: S1 and S2 sounds normal. Regular rate and rhythm, no murmurs, clicks, or bruits. No pedal edema. RESPIRATORY: Normal respiratory rate, trachea midline, airway patent. No stridor, nasal flaring or accessory muscle use. Lungs are clear in all judge without wheeze, rhonchi, or crackles. GASTROINTESTINAL: Bowel sounds normoactive. Abdomen is soft and nondistended, tenderness with deep palpation to upper right umbilical area. No organomegaly, no reducible hernias palpated. GENITALURINARY: No flank tenderness. Speculum exam was performed, under amount of white discharge was seen, no erythema, cervix was not visualized due to hys terectomy. Slight right-sided and axial tenderness with bimanual exam. Lab swab was obtained for BV and [place]. MUSCULOSKELETAL: Normal gait and coordination. Equal tone and mass bilaterally. EXTREMITIES: CMS intact, no pedal edema. SKIN: Warm, dry, soft, appropriate color for ethnicity. No lesions, rashes, or wounds. NEURO: Alert and Oriented X 3. Good coordination. No ataxia, or sensory deficits, or cognitive issues. PSYCH: Appropriate affect and mood. <Sharon Lucero MD - Last Filed: 11/06/18 07:58> Initial Vital Signs Initial Vital Signs: Vital Signs Temperature 98.0 F 10/26/18 11:28 Pulse Rate 101 H 10/26/18 11:28 Respiratory Rate 10/26/18 11:28 Blood Pressure 121/59 L 10/26/18 11:28 Pulse Oximetry 98 10/26/18 11:28 Course <VEENA Sy - Last Filed: 10/26/18 19:52> Orders Ordered: Discontinued Medications Sodium Chloride (Normal Saline 0.9%) 1,000 mls @ 1,000 mls/hr IV BOLUS ONE Stop: 10/26/18 12:43 Last Infusion: 10/26/18 13:17 Dose: 0 mls/hr Admin: 10/26/18 12:17 Dose: 1,000 mls/hr Ketorolac Tromethamine (Toradol) 30 mg IV NOW ONE Stop: 10/26/18 11:45 Last Admin: 10/26/18 12:17 Dose: 30 mg Morphine Sulfate (Morphine) 2 mg IV NOW ONE Stop: 10/26/18 14:46 Last Admin: 10/26/18 14:54 Dose: 2 mg Ondansetron HCl (Zofran) 4 mg IV NOW ONE Stop: 10/26/18 11:45 Last Admin: 10/26/18 12:17 Dose: 4 mg Reevaluation(s) Reevaluation #1: Patient states her pain is slightly resolving after the Toradol. Extensive conversation was had about follow-up. Consultations Consultation #1: Consulted with Dr. Lucero. Vital Signs - 8 hr 10/26/18 12:55 10/26/18 13:00 10/26/18 13:30 Pulse Rate 80 90 70 Respiratory Rate 17 18 Blood Pressure [Right Arm] 123/85 108/58 L 98/40 L Pulse Oximetry 98 96 95 10/26/18 14:00 10/26/18 14:30 Pulse Rate 72 81 Respiratory Rate 18 Blood Pressure [Right Arm] 113/48 L 113/71 Pulse Oximetry 94 93 <Sharon Lucero MD - Last Filed: 11/06/18 07:58> Orders Ordered: Discontinued Medications Sodium Chloride (Normal Saline 0.9%) 1,000 mls @ 1,000 mls/hr IV BOLUS ONE Stop: 10/26/18 12:43 Last Infusion: 10/26/18 13:17 Dose: 0 mls/hr Admin: 10/26/18 12:17 Dose: 1,000 mls/hr Ketorolac Tromethamine (Toradol) 30 mg IV NOW ONE Stop: 10/26/18 11:45 Last Admin: 10/26/18 12:17 Dose: 30 mg Morphine Sulfate (Morphine) 2 mg IV NOW ONE Stop: 10/26/18 14:46 Last Admin: 10/26/18 14:54 Dose: 2 mg Ondansetron HCl (Zofran) 4 mg IV NOW ONE Stop: 10/26/18 11:45 Last Admin: 10/26/18 12:17 Dose: 4 mg Vital Signs - 8 hr 10/26/18 12:55 10/26/18 13:00 10/26/18 13:30 Pulse Rate 80 90 70 Respiratory Rate 17 18 Blood Pressure [Right Arm] 123/85 108/58 L 98/40 L Pulse Oximetry 98 96 95 10/26/18 14:00 10/26/18 14:30 Pulse Rate 72 81 Respiratory Rate 18 Blood Pressure [Right Arm] 113/48 L 113/71 Pulse Oximetry 94 93 MDM - Abdominal Pain <VEENA Sy - Last Filed: 10/26/18 19:52> Medical Records Attestation: I reviewed the patient's medical records. Lab Data Attestation: I reviewed the patient's lab results. Result diagrams: 10/26/18 11:42 10/26/18 11:42 Lab Results 10/26/18 10/26/18 10/26/18 Range/Units 11:42 11:42 11:42 WBC 12.1 H (4.5-11.0) X10^3/uL RBC 4.84 (4.0-5.2) X10^6/uL Hgb 14.0 (12.0-16.0) g/dL Hct 41.8 (36-46) % MCV 86.3 (80-100) fL MCH 28.9 (26-34) PG MCHC 33.4 (30-36) % RDW 14.3 (11.6-14.8) % Plt Count 206 (150-400) X10^3/uL Neut % (Auto) 72.6 (50-75) % Lymph % (Auto) 21.2 L (25-40) % [place] % (Auto) 3.9 (3-14) % Eos % (Auto) 1.2 L (2-4) % Baso % (Auto) 1.1 (0-2) % Neut # (Auto) 8800 H (4950-5458) /uL Lymph # (Auto) 2600 (4138-5941) /uL [place] # (Auto) 500 (0-900) /uL Eos # (Auto) 100 (0-450) /uL Baso # (Auto) 100 (0-100) /uL PT 11.6 (10.1-12.7) SECONDS INR 1.0 (0.9-1.3) APTT 30 (26.4-36.2) SECONDS Sodium 139 (137-145) mmol/L Potassium 4.1 (3.4-5.1) mmol/L Chloride 106 (98-107) mmol/L Carbon Dioxide 23 (22-32) mmol/L BUN 9 (7-17) mg/dL Creatinine 0.50 L (0.52-1.04) mg/dL Estimated GFR > 60.0 (>60) mL/min BUN/Creatinine Ratio 18.0 (6-22) Glucose 153 H (70-100) mg/dL Calcium 9.2 (8.4-10.2) mg/dL Total Bilirubin 0.5 (0.2-1.3) mg/dL AST 46 H (14-36) IU/L ALT 61 H (9-52) IU/L Alkaline Phosphatase 68 (38-126) U/L Total Protein 7.3 (6.3-8.2) g/dL Albumin 4.1 (3.5-5.0) g/dL Globulin 3.2 (1.7-4.1) g/dL Albumin/Globulin Ratio 1.3 (1.0-2.8) Lipase 152 (23-300) U/L Point of care testing: Urine Dip Bedside Urine Glucose Negative Bedside Urine Bilirubin - Negative Bedside Urine Ketone - Negative Urine Specific [place] 1.025 Bedside Urine Occult Blood - Negative Bedside Urine pH 6.0 Bedside Urine Protein +/- 15 Bedside Urine Urobilinogen +/- 1mg Bedside Urine Nitrite - Negative Bedside Urine Leukocytes - Negative Esterase Imaging Data CT scan - abdomen: Radiologist's impression: [address] [address] [address] Scan Report Signed Patient: Muna Swift [facility]#: [id number] : 1990Acct:[id number] Age/Sex: 28 / FDate of Service: 10/26/18 Loc: ED Accession Number: [id number] Procedure: CT abdomen pelvis w con Ordering Provider: Grisel Zavala PROCEDURE: CT ABDOMEN PELVIS W CON INDICATIONS: Severe umbilical pain x 4 days, multiple surgeries. TECHNIQUE: After the administration of intravenous contrast, 5 mm thick sections acquired from the diaphragm to the symphysis. 5 mm coronal and sagittal reformats were acquired. For radiation dose reduction, the following was used: automated exposure control, adjustment of mA and/or kV according to patient size. COMPARISON: None. FINDINGS: Image quality: Excellent. ABDOMEN: Lung bases: Lung bases are clear. Heart size is normal. Solid organs: Liver is prominent in size and enhancement. Diffuse fatty liver infiltration is noted. Gallbladder has been removed. Biliary system is non dilated. Pancreas enhances normally. Spleen is normal in size and enhancement. No adrenal nodules. Kidneys demonstrate normal size and enhancement, without hydronephrosis. Peritoneum and bowel: Bowel loops demonstrate normal wall thickness and caliber. No free fluid or air. No appendix is seen, either normal or abnormal. No focal quadrant inflammatory changes are seen. Nodes and vessels: No retroperitoneal or mesenteric adenopathy by size criteria. Aorta and inferior vena cava are normal in size. Miscellaneous: A mild periumbilical hernia is seen, containing fat. No additional umbilical region abnormalities are seen. PELVIS: Genitourinary: Bladder wall thickness is normal. This patient is status post hysterectomy. No adnexal masses are seen. Miscellaneous: No inguinal hernias or adenopathy. Bones: No suspicious bony lesions. No vertebral body compression fractures. IMPRESSION: There is a small periumbilical hernia seen, which contains fat. No additional umbilical region abnormality is seen in this patient with a presentin g history of severe umbilical pain. No appendix is seen, either normal or abnormal. Incidental note is made of: Cholecystectomy Prominent, fatty liver Hysterectomy Dictated by: Nigel Escudero M.D. on 10/26/2018 at 11:32 Approved by: Nigel Escudero M.D. on 10/26/2018 at 11:35 MDM Narrative Medical decision making narrative: I suspect that her abdominal pain is caused from her hernia and or possible adhesions due to multiple surgeries. Very little suspicion of acute surgical abdomen due to CT findings of no acute process, normal laboratories results, lack of systemic symptoms, as well as the fact that patient has had both her gallbladder, appendix, and uterus removed. Less likely ovarian cyst as her ovaries were removed as well. Less likely vaginitis due to lack of findings on the wet mount as well as a normal pelvic exam. Patient was encouraged to follow up with her primary care provider. Strict return precautions were given. <Sharon Lucero MD - Last Filed: 11/06/18 07:58> Lab Data Lab Results 10/26/18 10/26/18 10/26/18 Range/Units 11:42 11:42 11:42 WBC 12.1 H (4.5-11.0) X10^3/uL RBC 4.84 (4.0-5.2) X10^6/uL Hgb 14.0 (12.0-16.0) g/dL Hct 41.8 (36-46) % MCV 86.3 (80-100) fL MCH 28.9 (26-34) PG MCHC 33.4 (30-36) % RDW 14.3 (11.6-14.8) % Plt Count 206 (150-400) X10^3/uL Neut % (Auto) 72.6 (50-75) % Lymph % (Auto) 21.2 L (25-40) % [place] % (Auto) 3.9 (3-14) % Eos % (Auto) 1.2 L (2-4) % Baso % (Auto) 1.1 (0-2) % Neut # (Auto) 8800 H (9682-0312) /uL Lymph # (Auto) 2600 (9193-1864) /uL [place] # (Auto) 500 (0-900) /uL Eos # (Auto) 100 (0-450) /uL Baso # (Auto) 100 (0-100) /uL PT 11.6 (10.1-12.7) SECONDS INR 1.0 (0.9-1.3) APTT 30 (26.4-36.2) SECONDS Sodium 139 (137-145) mmol/L Potassium 4.1 (3.4-5.1) mmol/L Chloride 106 (98-107) mmol/L Carbon Dioxide 23 (22-32) mmol/L BUN 9 (7-17) mg/dL Creatinine 0.50 L (0.52-1.04) mg/dL Estimated GFR > 60.0 (>60) mL/min BUN/Creatinine Ratio 18.0 (6-22) Glucose 153 H (70-100) mg/dL Calcium 9.2 (8.4-10.2) mg/dL Total Bilirubin 0.5 (0.2-1.3) mg/dL AST 46 H (14-36) IU/L ALT 61 H (9-52) IU/L Alkaline Phosphatase 68 (38-126) U/L Total Protein 7.3 (6.3-8.2) g/dL Albumin 4.1 (3.5-5.0) g/dL Globulin 3.2 (1.7-4.1) g/dL Albumin/Globulin Ratio 1.3 (1.0-2.8) Lipase 152 (23-300) U/L Point of care testing: Urine Dip Bedside Urine Glucose Negative Bedside Urine Bilirubin - Negative Bedside Urine Ketone - Negative Urine Specific [place] 1.025 Bedside Urine Occult Blood - Negative Bedside Urine pH 6.0 Bedside Urine Protein +/- 15 Bedside Urine Urobilinogen +/- 1mg Bedside Urine Nitrite - Negative Bedside Urine Leukocytes - Negative Esterase Discharge Plan Departure Patient Disposition: Home Clinical Impression: Abdominal pain Qualifiers: Abdominal location: periumbilical Qualified Code(s): R10.33 - Periumbilical pain Discharge Date/Time: 10/26/18 15:13 Interventions: ED Discharge Assessment Last Done: 10/26/18 15:01 Instructions: DI for Abdominal Pain-Adult Activity Restrictions/Additional Instructions: Thank you for entrusting me with your care today. As discussed, your CT, blood work, urine, and vaginal swabs were negative for signs of acute infection or concerning results of would indicate the reason why you are having pain. It is possible that you may have adhesions due to multiple abdominal surgeries. Please follow up with her primary care provider for further evaluation and testing if needed. He may continue to take ibuprofen for pain. Return to the emergency department if you have uncontrollable vomiting, high fevers, shortness of breath, or chest pain. Prescriptions: No Action diazepam [Valium] 2 mg tablet 2 mg PO BID PRN (Reason: muscle spasm) Qty: 10 RF: 0 meloxicam [Mobic] 7.5 mg tablet 7.5 mg PO DAILY PRN (Reason: pain) Qty: 10 RF: 0 gabapentin 600 mg Tablet 600 mg PO TID RF: 0 cyclobenzaprine 5 mg Tablet 5 mg PO BEDTIME PRN (Reason: muscle spasms) RF: 0 Protonix [address] For Susp In Packet 40 mg PO BID RF: 0 citalopram 10 mg Tablet 10 mg PO DAILY RF: 0 acetaminophen [Tylenol Extra Strength] 500 mg Tablet 1,000 mg PO Q6H PRN (Reason: Pain (Scale Score 4-6)) RF: 0 ibuprofen 600 mg Tablet 600 mg PO QID PRN (Reason: Pain (Scale Score 4-6)) RF: 0 pioglitazone 15 mg tablet 15 mg PO DAILY RF: 0 Januvia 100 mg tablet 100 mg PO DAILY RF: 0 tizanidine 2 mg Tablet 2 mg PO TID RF: 0
[2018-10-26 11:53] LABS: Add Manual Diff / Slide Review NO; Basophils Absolute Auto 100 /uL (0-100); Basophils Percent Auto 1.1 % (0-2); Eosinophils Absolute Auto 100 /uL (0-450); Eosinophils Percent Auto 1.2 % (2-4); Hematocrit 41.8 % (36-46); Lymphocytes Absolute Auto 2600 /uL (1100-4500); Lymphocytes Percent Auto 21.2 % (25-40); Mean Corpuscular HGB Conc 33.4 % (30-36); Mean Corpuscular Hemoglobin 28.9 PG (26-34); Mean Corpuscular Volume 86.3 fL (80-100); Monocytes Absolute Auto 500 /uL (0-900); Monocytes Percent Auto 3.9 % (3-14); Neutrophils Absolute Auto 8800 /uL (1500-7000); Neutrophils Percent Auto 72.6 % (50-75); Platelet Count 206 X10^3/uL (150-400); Red Blood Cell Count 4.84 X10^6/uL (4.0-5.2); Red Cell Distribution Width 14.3 % (11.6-14.8); White Blood Cell Count 12.1 X10^3/uL (4.5-11.0)
[2018-10-26 11:56] LABS: Prothrombin Time 11.6 SECONDS (10.1-12.7)
[2018-10-26 11:58] LABS: PTT Partial Thromboplastin Tim 30 SECONDS (26.4-36.2)
[2018-10-26 12:02] LABS: Alanine Aminotransferase 61 IU/L (9-52); Albumin 4.1 g/dL (3.5-5.0); Albumin Globulin Ratio 1.3 (1.0-2.8); Alkaline Phosphatase 68 U/L (38-126); Aspartate Aminotransferase 46 IU/L (14-36); Bilirubin Total 0.5 mg/dL (0.2-1.3); Blood Urea Nitrogen 9 mg/dL (7-17); Calcium 9.2 mg/dL (8.4-10.2); Carbon Dioxide 23 mmol/L (22-32); Chloride 106 mmol/L (98-107); Estimated Glomerular Filt Rate > 60.0 mL/min (>60); Globulin 3.2 g/dL (1.7-4.1); Glucose 153 mg/dL (70-100); HEMOLYSIS 46 (0-50); Lipase 152 U/L (23-300); Potassium 4.1 mmol/L (3.4-5.1); Sodium 139 mmol/L (137-145); Total Protein 7.3 g/dL (6.3-8.2)
[2018-10-26] MEDS: ONDANSETRON 4 MG/2 ML INJ IV (12:17)
[2018-10-26] MEDS: KETOROLAC 60 MG/2 ML VIAL 30 MG IV (12:17)
[2018-10-26] MEDS: SODIUM CHLORIDE 0.9% 1,000 ML 1000 ML IV (12:17)
--- NOTE | 2018-10-26 12:19 | DI.CT.S_ITS ---
PROCEDURE: CT ABDOMEN PELVIS W CON INDICATIONS: Severe umbilical pain x 4 days, multiple surgeries. TECHNIQUE: After the administration of intravenous contrast, 5 mm thick sections acquired from the diaphragm to the symphysis. 5 mm coronal and sagittal reformats were acquired. For radiation dose reduction, the following was used: automated exposure control, adjustment of mA and/or kV according to patient size. COMPARISON: None. FINDINGS: Image quality: Excellent. ABDOMEN: Lung bases: Lung bases are clear. Heart size is normal. Solid organs: Liver is prominent in size and enhancement. Diffuse fatty liver infiltration is noted. Gallbladder has been removed. Biliary system is non dilated. Pancreas enhances normally. Spleen is normal in size and enhancement. No adrenal nodules. Kidneys demonstrate normal size and enhancement, without hydronephrosis. Peritoneum and bowel: Bowel loops demonstrate normal wall thickness and caliber. No free fluid or air. No appendix is seen, either normal or abnormal. No focal quadrant inflammatory changes are seen. Nodes and vessels: No retroperitoneal or mesenteric adenopathy by size criteria. Aorta and inferior vena cava are normal in size. Miscellaneous: A mild periumbilical hernia is seen, containing fat. No additional umbilical region abnormalities are seen. PELVIS: Genitourinary: Bladder wall thickness is normal. This patient is status post hysterectomy. No adnexal masses are seen. Miscellaneous: No inguinal hernias or adenopathy. Bones: No suspicious bony lesions. No vertebral body compression fractures. IMPRESSION: There is a small periumbilical hernia seen, which contains fat. No additional umbilical region abnormality is seen in this patient with a presenting history of severe umbilical pain. No appendix is seen, either normal or abnormal. Incidental note is made of: Cholecystectomy Prominent, fatty liver Hysterectomy Dictated by: Nigel Escudero M.D. on 10/26/2018 at 11:32 Approved by: Nigel Escudero M.D. on 10/26/2018 at 11:35
--- NOTE | 2018-10-26 12:54 | PC.NURSE ---
facial grimaces, skin warm dry pink.
[2018-10-26 12:55] VITALS: BP 123/85; PULSE 80; RESP 17; O2SAT 98
[2018-10-26 13:00] VITALS: BP 108/58; PULSE 90; RESP 18; O2SAT 96
[2018-10-26 13:30] VITALS: BP 98/40; PULSE 70; O2SAT 95
[2018-10-26 14:00] VITALS: BP 113/48; PULSE 72; RESP 18; O2SAT 94
[2018-10-26 14:30] VITALS: BP 113/71; PULSE 81; O2SAT 93
[2018-10-26] MEDS: MORPHINE 2 MG/ML INJ IV (14:54)
== END 2018-10-26 15:13 | disposition home or self-care (01) ==
PROVIDERS: Emergency Medicine; Emergency Provider Nurse Practitioner
DX: R10.33 Periumbilical pain (principal)
CPT/HCPCS: 36591; 74177; 80053; 81003; 83690; 85025; 85610; 85730; 87210; 96361; 96374; 96375; 99283; 99284; J1885; J2270; J2405; Q9967

== ENCOUNTER 2019-02-14 12:48 | Observation (INO) | payer OTHER, MEDICAID, SELFPAY ==
[2019-02-14 12:58] VITALS: BP 111/78; PULSE 100; RESP 18; TEMP 36.6; O2SAT 100
--- NOTE | 2019-02-14 13:16 | ED_ITS ---
HPI - Abdominal Pain <Pancho VEENA Valdovinos - Last Filed: 02/14/19 22:40> General Chief Complaint: Abdominal Pain Stated Complaint: left sided bad pain shooting up chest Time Seen by Provider: 02/14/19 12:55 Source: patient Mode of arrival: Ambulatory Limitations: no limitations History of Present Illness HPI narrative: This is a 28-year-old female, smoker, presents to ED with significant other with chief complain of intermittent left upper quadrant pain which started about a week ago. Patient reports today the pain is more severe and frequent and has nausea as well. Patient has constant heavy and dull LUQ pain with sharp severe intermittent pain. Pain radiates to epigastric area and to her left side back. Patient also has urinary discomfort describing as razor blades with urination for last 2 days and left flank pain. Patient denies fever, chills, vomiting, diarrhea. Last bowel movement was last night with small amount and has not had flatulence since then. She has history of cholecystectomy, appendectomy, hysterectomy, umbilical and inguinal hernia. Patient denies unusual vaginal discharge and is not concerned for STIs or vaginal infection. LMP 10/2014 and had a hysterectomy. Related Data Home Medications Medication Instructions Recorded Confirmed cyclobenzaprine 5 mg PO BEDTIME PRN 09/20/18 02/14/19 gabapentin 600 mg PO TID 09/20/18 02/14/19 acetaminophen [Tylenol Extra 1,000 mg PO Q6H PRN 10/14/18 02/14/19 Strength] ibuprofen 600 mg PO QID PRN 10/14/18 02/14/19 sitagliptin [Januvia] 100 mg PO QPM 10/26/18 02/14/19 tizanidine 2 mg PO TID 10/26/18 02/14/19 Calcium Tablet 1 tab PO BID 02/14/19 02/14/19 Fish Oil 1 cap PO TID 02/14/19 02/14/19 bupropion HCl 300 mg PO DAILY 02/14/19 02/14/19 iron 1 tab PO DAILY 02/14/19 02/14/19 lamotrigine 200 mg PO BEDTIME 02/14/19 02/14/19 meloxicam 7.5 mg PO BID 02/14/19 02/14/19 omeprazole 20 mg PO DAILY 02/14/19 02/14/19 Allergies Allergy/AdvReac Type Severity Reaction Status Date / Time diphenhydramine Allergy Severe Anaphylaxis Verified 10/26/18 11:28 amoxicillin Allergy Intermediate Rash Verified 10/26/18 11:28 metformin Allergy Intermediate Rash Verified 10/26/18 11:28 Penicillins Allergy Intermediate Verified 10/26/18 11:28 Sulfa (Sulfonamide Allergy Intermediate Rash Verified 10/26/18 11:28 Antibiotics) Review of Systems <VEENA Rose - Last Filed: 02/14/19 22:40> Review of Systems Narrative: General: Denies fever, chills, fatigue, malaise, sweats. HEENT: Denies sinus pain, ear pain, sore throat, difficulty swallowing, dizziness. Respiratory: Denies dyspnea, cough, wheezing, hemoptysis, sputum. Cardiovascular: Denies chest pain, palpitations, orthopnea, edema. Gastrointestinal: See HPI : See HPI Musculoskeletal: Denies weakness, joint pain or bony pain. Skin: Denies rash, skin lesions, or other. Neurologic: Denies weakness, headache, numbness, change in speech, confusion, seizures, incoordination. Psychiatric: No concerning psychosocial issues. 12-point review of systems is negative except for those stated above. Patient History <VEENA Rose - Last Filed: 02/14/19 22:40> Medical History Asthma (Acute) Benign tumor of groin (Acute) Diabetes (Acute) Multiple sclerosis (Acute) Obesity (Acute) Surgical History H/O hernia repair (Acute) H/O: hysterectomy (Acute) History of appendectomy (Acute) History of tonsillectomy (Acute) Hx of cholecystectomy (Acute) Social History household members: spouse Smoking Status: Current every day smoker alcohol intake: current alcohol intake frequency: 0-2 drinks per day Substance Use Type: does not use Exam <VEENA Rose - Last Filed: 02/14/19 22:40> Narrative Exam Narrative: GEN: Alert, oriented x 3, well appearing and nourished, and in moderate distress. Head: Normal cephalic, atraumatic. No scalp or temporal tenderness, palpable mass or rash. EYES: Pupils are equal, round, and reactive to light and accommodation. Extraocular muscles are intact bilaterally. There is no subconjunctival hemorrhage, exudate and sclera non-icteric. ENT: Bilateral auditory canals and tympanic membranes clear. Hearing grossly intact. Nose without bleeding, purulent discharge or deviation. Facial sinuses nontender to palpate. Mucous membrane moist, no mucosal lesion. Throat without erythema, tonsillar hypertrophy or exudate. Uvula in midline, airway patent. Neck: Trachea in midline. No JVD, non-tender without lymphadenopathy. No masses or thyroid megaly. Supple, non-tender and no meningeal signs. CARDIAC: Normal regular rate and rhythm without murmurs, gallops, or rubs. No chest wall tenderness. No peripheral edema, cyanosis or pallor. Capillary refill is less than 2 seconds. RESPIRATORY: Lungs are clear to auscultate bilaterally. No cough, wheezes, rales, or rhonchi. No stridor, respiratory distress, increase work of breathing, or accessary muscle used. ABD: Abdomen soft and non-distended. Tender to palpate left upper quadrant pain below left breast. Negative Ventura's sign. No guarding to palpate. Bowel sounds are normal in all 4 quadrants. There is no palpable masses or organomegaly. EXT: Full painless ROM of all extremities with no loss of sensation, strength, effusion or edema. SKIN: Warm, dry, normal color for patient. No erythema, lesions or rash over visible areas. BACK: Nontender without deformity or crepitance. Left flank pain with percussion. NEUROLOGICAL: Alert and oriented to place, time and person. Sensation and motor function intact bilaterally. No facial droops, dysphasia. PSYCHIATRIC: Good judgement and reason, without hallucinations, abnormal affect or abnormal behaviors during the examination. Initial Vital Signs Initial Vital Signs: Vital Signs Temperature 97.8 F 02/14/19 12:58 Pulse Rate 100 H 02/14/19 12:58 Respiratory Rate 18 02/14/19 12:58 Blood Pressure 111/78 02/14/19 12:58 Pulse Oximetry 100 02/14/19 12:58 <Jenna Cody, - Last Filed: 02/15/19 07:13> Initial Vital Signs Initial Vital Signs: Vital Signs Temperature 97.8 F 02/14/19 12:58 Pulse Rate 100 H 02/14/19 12:58 Respiratory Rate 18 02/14/19 12:58 Blood Pressure 111/78 02/14/19 12:58 Pulse Oximetry 100 02/14/19 12:58 Scores <[facility], [facility] Last Filed: 02/14/19 22:40> GCS [place] coma scale eye opening: Spontaneous Aries coma scale verbal response: Orientated [place] coma scale motor response: Obey commands A[place] coma scale total score: 15 Course [facility] Last Filed: 02/14/19 22:40> Orders Ordered: Bisacodyl (Dulcolax) 10 mg [place] DAILY [facility] Enoxaparin Sodium (Lovenox) 40 mg SUBCUT DAILY [facility] Hydromorphone HCl (Dilaudid) 1 mg IV Q6HR PRN PRN Reason: Pain, Severe (7-10) Last Admin: 02/15/19 01:27 Dose: 1 mg Documented by: Admin: 02/14/19 19:00 Dose: 1 mg Documented by: YARIEL Sodium Chloride (Normal Saline 0.9%) 1,000 mls @ 100 mls/hr IV CONT [facility] Last Admin: 02/15/19 05:32 Dose: 100 mls/hr Documented by: Infusion: 02/15/19 05:32 Dose: 100 mls/hr Documented by: Admin: 02/14/19 19:55 Dose: 100 mls/hr Documented by: CATHERINE Ketorolac Tromethamine (Toradol) 30 mg IV Q6HR [facility] Stop: 02/19/19 17:17 Last Admin: 02/15/19 05:17 Dose: 30 mg Documented by: Admin: 02/15/19 00:03 Dose: 30 mg Documented by: BINA Lorazepam (Ativan) 1 mg IV Q6HR PRN PRN Reason: Anxiety Naloxone HCl (Narcan) 0.2 mg IV Q2MIN PRN PRN Reason: Opiate Reversal Ondansetron HCl (Zofran) 4 mg IV Q8HR PRN PRN Reason: Nausea And Vomiting Pantoprazole Sodium (Protonix) 40 mg IV DAILY [facility] Discontinued Medications Sodium Chloride (Normal Saline 0.9%) 1,000 mls @ 150 mls/hr IV CONT [facility] Last Infusion: 02/14/19 17:15 Dose: 0 mls/hr Documented by: Admin: 02/14/19 13:50 Dose: 150 mls/hr Documented by: ELIF Dextrose/Sodium Chloride (Dextrose 5%-0.45% Ns) 1,000 mls @ 100 mls/hr IV CONT [facility] Last Infusion: 02/14/19 17:32 Dose: 0 mls/hr Documented by: Admin: 02/14/19 17:32 Dose: 100 mls/hr Documented by: YARIEL Ketorolac Tromethamine (Toradol) 30 mg IV Q6HR PRN PRN Reason: Pain, Severe (7-10) Stop: 02/19/19 17:17 Last Admin: 02/14/19 17:35 Dose: 30 mg Documented by: CATHERINE Morphine Sulfate (Morphine) 4 mg IV NOW ONE Stop: 02/14/19 13:12 Last Admin: 02/14/19 13:50 Dose: 4 mg Documented by: ELIF Morphine Sulfate (Morphine) 4 mg IV NOW ONE Stop: 02/14/19 16:28 Last Admin: 02/14/19 16:32 Dose: 4 mg Documented by: ELIF Ondansetron HCl (Zofran) 4 mg IV NOW ONE Stop: 02/14/19 13:12 Last Admin: 02/14/19 13:50 Dose: 4 mg Documented by: ELIF Pantoprazole Sodium (Protonix) 40 mg IV NOW ONE Stop: 02/14/19 14:27 Last Admin: 02/14/19 14:33 Dose: 40 mg Documented by: ELIF Reevaluation(s) Reevaluation #1: Dr. Palmer consulted for the concerns of SBO or ileus with the patient's extensive abdominal surgical histories and left upper quadrant pain with nausea. He kindly accepted patient's care for admission. Time: 17:00 Vital Signs Vital signs: Vital Signs - 8 hr 02/14/19 15:34 Pulse Rate 95 H Respiratory Rate 16 Blood Pressure [Left Arm] 102/56 L Pulse Oximetry 95 <Jenna Cody, - Last Filed: 02/15/19 07:13> Orders Ordered: Bisacodyl (Dulcolax) 10 mg [place] DAILY [facility] Enoxaparin Sodium (Lovenox) 40 mg SUBCUT DAILY [facility] Hydromorphone HCl (Dilaudid) 1 mg IV Q6HR PRN PRN Reason: Pain, Severe (7-10) Last Admin: 02/15/19 01:27 Dose: 1 mg Documented by: Admin: 02/14/19 19:00 Dose: 1 mg Documented by: YARIEL Sodium Chloride (Normal Saline 0.9%) 1,000 mls @ 100 mls/hr IV CONT [facility] Last Admin: 02/15/19 05:32 Dose: 100 mls/hr Documented by: Infusion: 02/15/19 05:32 Dose: 100 mls/hr Documented by: Admin: 02/14/19 19:55 Dose: 100 mls/hr Documented by: CATHERINE Ketorolac Tromethamine (Toradol) 30 mg IV Q6HR [facility] Stop: 02/19/19 17:17 Last Admin: 02/15/19 05:17 Dose: 30 mg Documented by: Admin: 02/15/19 00:03 Dose: 30 mg Documented by: BINA Lorazepam (Ativan) 1 mg IV Q6HR PRN PRN Reason: Anxiety Naloxone HCl (Narcan) 0.2 mg IV Q2MIN PRN PRN Reason: Opiate Reversal Ondansetron HCl (Zofran) 4 mg IV Q8HR PRN PRN Reason: Nausea And Vomiting Pantoprazole Sodium (Protonix) 40 mg IV DAILY [facility] Discontinued Medications Sodium Chloride (Normal Saline 0.9%) 1,000 mls @ 150 mls/hr IV CONT [facility] Last Infusion: 02/14/19 17:15 Dose: 0 mls/hr Documented by: Admin: 02/14/19 13:50 Dose: 150 mls/hr Documented by: ELIF Dextrose/Sodium Chloride (Dextrose 5%-0.45% Ns) 1,000 mls @ 100 mls/hr IV CONT [facility] Last Infusion: 02/14/19 17:32 Dose: 0 mls/hr Documented by: Admin: 02/14/19 17:32 Dose: 100 mls/hr Documented by: YARIEL Ketorolac Tromethamine (Toradol) 30 mg IV Q6HR PRN PRN Reason: Pain, Severe (7-10) Stop: 02/19/19 17:17 Last Admin: 02/14/19 17:35 Dose: 30 mg Documented by: CATHERINE Morphine Sulfate (Morphine) 4 mg IV NOW ONE Stop: 02/14/19 13:12 Last Admin: 02/14/19 13:50 Dose: 4 mg Documented by: ELIF Morphine Sulfate (Morphine) 4 mg IV NOW ONE Stop: 02/14/19 16:28 Last Admin: 02/14/19 16:32 Dose: 4 mg Documented by: ELIF Ondansetron HCl (Zofran) 4 mg IV NOW ONE Stop: 02/14/19 13:12 Last Admin: 02/14/19 13:50 Dose: 4 mg Documented by: ELIF Pantoprazole Sodium (Protonix) 40 mg IV NOW ONE Stop: 02/14/19 14:27 Last Admin: 02/14/19 14:33 Dose: 40 mg Documented by: ELIF Vital Signs Vital signs: Vital Signs - 8 hr 02/14/19 15:34 Pulse Rate 95 H Respiratory Rate 16 Blood Pressure [Left Arm] 102/56 L Pulse Oximetry 95 MDM - Abdominal Pain <Pancho VEENA Valdovinos - Last Filed: 02/14/19 22:40> Differential Diagnosis Differential diagnosis: Likely constipation, small bowel obstruction and other (Pancreatitis, gallstone in common bile duct, GERD) Medical Records Attestation: I reviewed the patient's medical records. Lab Data Attestation: I reviewed the patient's lab results. Result diagrams: 02/14/19 13:30 02/14/19 13:30 Labs: Lab Results 02/14/19 02/14/19 Range/Units 13:30 13:30 WBC 10.3 (4.5-11.0) X10^3/uL RBC 4.68 (4.0-5.2) X10^6/uL Hgb 13.7 (12.0-16.0) g/dL Hct 40.5 (36-46) % MCV 86.6 (80-100) fL MCH 29.3 (26-34) PG MCHC 33.8 (30-36) % RDW 13.6 (11.6-14.8) % Plt Count 197 (150-400) X10^3/uL Neut % (Auto) 64.9 (50-75) % Lymph % (Auto) 27.3 (25-40) % [place] % (Auto) 5.6 (3-14) % Eos % (Auto) 1.4 L (2-4) % Baso % (Auto) 0.8 (0-2) % Neut # (Auto) 6700 (6377-8739) /uL Lymph # (Auto) 2800 (7387-4215) /uL [place] # (Auto) 600 (0-900) /uL Eos # (Auto) 100 (0-450) /uL Baso # (Auto) 100 (0-100) /uL Sodium 139 (137-145) mmol/L Potassium 4.0 (3.4-5.1) mmol/L Chloride 103 (98-107) mmol/L Carbon Dioxide 25 (22-32) mmol/L BUN 12 (7-17) mg/dL Creatinine 0.70 (0.52-1.04) mg/dL Estimated GFR > 60.0 (>60) mL/min BUN/Creatinine Ratio 17.1 (6-22) Glucose 95 (70-100) mg/dL Calcium 10.0 (8.4-10.2) mg/dL Total Bilirubin 0.4 (0.2-1.3) mg/dL AST 25 (14-36) IU/L ALT 47 H (<35) IU/L Alkaline Phosphatase 74 (38-126) U/L Total Protein 7.9 (6.3-8.2) g/dL Albumin 4.7 (3.5-5.0) g/dL Globulin 3.2 (1.7-4.1) g/dL Albumin/Globulin Ratio 1.5 (1.0-2.8) Lipase 122 (23-300) U/L Point of care testing: Urine Dip Bedside Urine Glucose Negative Bedside Urine Bilirubin - Negative Bedside Urine Ketone - Negative Urine Specific [place] 1.005 Bedside Urine Occult Blood - Negative Bedside Urine pH 7.0 Bedside Urine Protein - Negative Bedside Urine Urobilinogen - Negative Bedside Urine Nitrite - Negative Bedside Urine Leukocytes - Negative Esterase Imaging Data US - abdomen: Radiologist's impression: [address] [address] Ultrasound Report Signed Patient: Muna Swift [facility]#: [id number] : 1990Acct:[id number] Age/Sex: 28 / FDate of Service: 02/14/19 Loc: ED Accession Number: [id number] Procedure: US abdomen complete Ordering Provider: Pancho Valdovinos PROCEDURE: US ABDOMEN COMPLETE INDICATIONS: LUQ PAIN, HX CHOLECYSTECTOMY, HYSTERECTOMY, APPENDECTOMY, TECHNIQUE: Real-time scanning was performed of the abdominal and retroperitoneal organs, with image documentation. COMPARISON: CT abdomen pelvis 10/26/2018. FINDINGS: Liver: Enlarged and increased in echogenicity. Decreased sonographic penetration. Gallbladder: Surgically absent. Biliary ducts: Not well-seen. Pancreas: Not well-seen. Spleen: Enlarged measuring 15.4 cm. No focal lesion. Kidneys: Kidneys are normal in size and echotexture. Right kidney measures 11.4 cm long; left kidney measures 12.1 cm long. No hydronephrosis or nephrolithiasis. No solid masses. Aorta: Visualized aorta is normal in caliber at less than 3 cm. Iliacs: Not well-seen. IVC: Intrahepatic inferior vena cava is patent. Miscellaneous: No free abdominal fluid. IMPRESSION: Suboptimal exam due to body habitus and bowel gas. 1. Hepatosplenomegaly. Hepatic steatosis. 2. Post cholecystectomy. 3. No free fluid. No hydronephrosis. Dictated by: Raheem Metzger M.D. on 02/14/2019 at 14:31 Approved by: Raheem Metzger M.D. on 02/14/2019 at 14:34 CT scan - abdomen: Radiologist's impression: [place] [address] CT Scan Report Signed Patient: Muna Swift [facility]#: [id number] : 1990Acct:[id number] Age/Sex: 28 / FDate of Service: 02/14/19 Loc: ED Accession Number: [id number] Procedure: CT abdomen pelvis w con Ordering Provider: Pancho Valdovinos PROCEDURE: CT ABDOMEN PELVIS W CON INDICATIONS: LUQ pain with nausea, hx dony, appy, hystrectomy, hernia TECHNIQUE: After the administration of intravenous contrast, 5 mm thick sections acquired from the diaphragm to the symphysis. 5 mm coronal and sagittal reformats were acquired. For radiation dose reduction, the following was used: automated exposure control, adjustment of mA and/or kV according to patient size. COMPARISON: [facility], CT, CT ABDOMEN PELVIS W CON, 10/26/2018, 12:13. FINDINGS: Image quality: Excellent. ABDOMEN: Lung bases: Lung bases are clear. Heart size is normal. Solid organs: Liver is enlarged, and demonstrates diffusely decreased density. Gallbladder is surgically absent. Biliary system is non dilated. Pancreas enhances normally. Spleen is enlarged, measuring 16.7 cm craniocaudal. No adrenal nodules. Kidneys demonstrate normal size and enhancement, without hydronephrosis. Peritoneum and bowel: There are a few adjacent moderately distended and mildly thickened loops of small bowel within the left hemiabdomen. Stomach and colon are within normal limits. Appendix not seen. No evidence of appendicitis. No free fluid or air. Nodes and vessels: No retroperitoneal or mesenteric adenopathy by size criteri a. Multiple mildly prominent subcentimeter mesenteric lymph nodes are present. Aorta and inferior vena cava are normal in size. Miscellaneous: No ventral hernias. PELVIS: Genitourinary: Bladder wall thickness is normal. Miscellaneous: No inguinal hernias or adenopathy. Bones: No suspicious bony lesions. No vertebral body compression fractures. IMPRESSION: 1. Mildly thickened and moderately distended loops of small bowel within the left hemiabdomen, which may indicate ileus, obstruction, or gastroenteritis. 2. Mildly prominent mesenteric lymph nodes, suggestive of mesenteric adenitis. 3. Appendix not seen. No evidence of appendicitis. 4. Hepatic steatosis. Dictated by: Syed Leslie M.D. on 02/14/2019 at 15:41 Approved by: Syed Leslie M.D. on 02/14/2019 at 15:45 ECG Data Attestation: I personally reviewed and interpreted this ECG as follows: Prior ECG tracings: available for review Interpretation: Sinus tachycardia rate at 1:05 a.m.. Normal [place]. Short [place] interval-100. No ST elevations or depressions. No significant changes from previous EKG. [facility] Narrative Medical decision making narrative: This is a 28-year-old female who presents to ED with left upper quadrant pain which radiates to epigastric area and to back and left flank with nausea for about a week. Patient initially had intermittent mild pain which became worse this morning. Patient has extensive abdominal surgical history in the past. Patient has no fever, chills. No diarrhea, last bowel movement yesterday afternoon with small amount, no flatulence since the bowel movement. Patient also reports urinary symptoms of dysuria but urine test was negative for any infection. Patient had history of hysterectomy due to endometriosis. CBC and chemistry test were unremarkable. Mild elevated ALT of 47. US complete Abdomen was done and shows not well seen biliary ducts and pancreas. Hepatosplenomegaly with hepatic steatosis. Additional imaging test of CT of abdomen obtained and showed mildly thickened and moderate distended loops of small bowel in left hemiabdomen which may indicate ileus, obstructions or gastroenteritis. The patient's physical exam and history is not consistent with gastroenteritis. It also showed mildly prominent mesenteric lymph nodes. Given patient's history of extensive abdominal surgery and small amount of yesterday bowel movements, the patient's symptom it is likely due to small-bowel obstruction and consulted Dr. Palmer and he kindly accepted the patient's care. Patient was medicated twice with morphine IV, Zofran, pantoprazole and IV hydrations while in ED with moderately improved symptoms. Findings and plan of admission to hospital were discussed with patient and spouse at the bedside and verbalized understanding and agreed with treatment plan. <Jenna Cody, DO - Last Filed: 02/15/19 07:13> Lab Data Labs: Lab Results 02/14/19 02/14/19 Range/Units 13:30 13:30 WBC 10.3 (4.5-11.0) X10^3/uL RBC 4.68 (4.0-5.2) X10^6/uL Hgb 13.7 (12.0-16.0) g/dL Hct 40.5 (36-46) % MCV 86.6 (80-100) fL MCH 29.3 (26-34) PG MCHC 33.8 (30-36) % RDW 13.6 (11.6-14.8) % Plt Count 197 (150-400) X10^3/uL Neut % (Auto) 64.9 (50-75) % Lymph % (Auto) 27.3 (25-40) % [place] % (Auto) 5.6 (3-14) % Eos % (Auto) 1.4 L (2-4) % Baso % (Auto) 0.8 (0-2) % Neut # (Auto) 6700 (4340-6754) /uL Lymph # (Auto) 2800 (3944-5641) /uL [place] # (Auto) 600 (0-900) /uL Eos # (Auto) 100 (0-450) /uL Baso # (Auto) 100 (0-100) /uL Sodium 139 (137-145) mmol/L Potassium 4.0 (3.4-5.1) mmol/L Chloride 103 (98-107) mmol/L Carbon Dioxide 25 (22-32) mmol/L BUN 12 (7-17) mg/dL Creatinine 0.70 (0.52-1.04) mg/dL Estimated GFR > 60.0 (>60) mL/min BUN/Creatinine Ratio 17.1 (6-22) Glucose 95 (70-100) mg/dL Calcium 10.0 (8.4-10.2) mg/dL Total Bilirubin 0.4 (0.2-1.3) mg/dL AST 25 (14-36) IU/L ALT 47 H (<35) IU/L Alkaline Phosphatase 74 (38-126) U/L Total Protein 7.9 (6.3-8.2) g/dL Albumin 4.7 (3.5-5.0) g/dL Globulin 3.2 (1.7-4.1) g/dL Albumin/Globulin Ratio 1.5 (1.0-2.8) Lipase 122 (23-300) U/L Point of care testing: Urine Dip Bedside Urine Glucose Negative Bedside Urine Bilirubin - Negative Bedside Urine Ketone - Negative Urine Specific [place] 1.005 Bedside Urine Occult Blood - Negative Bedside Urine pH 7.0 Bedside Urine Protein - Negative Bedside Urine Urobilinogen - Negative Bedside Urine Nitrite - Negative Bedside Urine Leukocytes - Negative Esterase Discharge Plan Departure Patient Disposition: Admitted As Inpatient Clinical Impression: Small bowel obstruction, Continuous left upper quadrant pain Discharge Date/Time: 02/14/19 17:17 Admit Date/Time: 02/14/19 16:45 Admit Provider: Marvin Palmer
--- NOTE | 2019-02-14 13:23 | DI.US.S_ITS ---
PROCEDURE: US ABDOMEN COMPLETE INDICATIONS: LUQ PAIN, HX CHOLECYSTECTOMY, HYSTERECTOMY, APPENDECTOMY, TECHNIQUE: Real-time scanning was performed of the abdominal and retroperitoneal organs, with image documentation. COMPARISON: CT abdomen pelvis 10/26/2018. FINDINGS: Liver: Enlarged and increased in echogenicity. Decreased sonographic penetration. Gallbladder: Surgically absent. Biliary ducts: Not well-seen. Pancreas: Not well-seen. Spleen: Enlarged measuring 15.4 cm. No focal lesion. Kidneys: Kidneys are normal in size and echotexture. Right kidney measures 11.4 cm long; left kidney measures 12.1 cm long. No hydronephrosis or nephrolithiasis. No solid masses. Aorta: Visualized aorta is normal in caliber at less than 3 cm. Iliacs: Not well-seen. IVC: Intrahepatic inferior vena cava is patent. Miscellaneous: No free abdominal fluid. IMPRESSION: Suboptimal exam due to body habitus and bowel gas. 1. Hepatosplenomegaly. Hepatic steatosis. 2. Post cholecystectomy. 3. No free fluid. No hydronephrosis. Dictated by: Raheme Metzger M.D. on 02/14/2019 at 14:31 Approved by: Raheem Metzger M.D. on 02/14/2019 at 14:34
[2019-02-14] MEDS: SODIUM CHLORIDE 0.9% 1,000 ML 150 ML IV (13:50)
[2019-02-14] MEDS: ONDANSETRON 4 MG/2 ML INJ IV (13:50)
[2019-02-14] MEDS: MORPHINE 4 MG/ML INJ IV ×2 (13:50→16:32)
[2019-02-14 13:52] LABS: Add Manual Diff / Slide Review NO; Basophils Absolute Auto 100 /uL (0-100); Basophils Percent Auto 0.8 % (0-2); Eosinophils Absolute Auto 100 /uL (0-450); Eosinophils Percent Auto 1.4 % (2-4); Hematocrit 40.5 % (36-46); Hemoglobin 13.7 g/dL (12.0-16.0); Lymphocytes Absolute Auto 2800 /uL (1100-4500); Lymphocytes Percent Auto 27.3 % (25-40); Mean Corpuscular HGB Conc 33.8 % (30-36); Mean Corpuscular Hemoglobin 29.3 PG (26-34); Mean Corpuscular Volume 86.6 fL (80-100); Monocytes Absolute Auto 600 /uL (0-900); Monocytes Percent Auto 5.6 % (3-14); Neutrophils Absolute Auto 6700 /uL (1500-7000); Neutrophils Percent Auto 64.9 % (50-75); Platelet Count 197 X10^3/uL (150-400); Red Blood Cell Count 4.68 X10^6/uL (4.0-5.2); Red Cell Distribution Width 13.6 % (11.6-14.8); White Blood Cell Count 10.3 X10^3/uL (4.5-11.0)
[2019-02-14 14:00] LABS: Alanine Aminotransferase 47 IU/L (<35); Albumin 4.7 g/dL (3.5-5.0); Albumin Globulin Ratio 1.5 (1.0-2.8); Alkaline Phosphatase 74 U/L (38-126); Aspartate Aminotransferase 25 IU/L (14-36); BUN Creatinine Ratio 17.1 (6-22); Bilirubin Total 0.4 mg/dL (0.2-1.3); Blood Urea Nitrogen 12 mg/dL (7-17); Carbon Dioxide 25 mmol/L (22-32); Chloride 103 mmol/L (98-107); Estimated Glomerular Filt Rate > 60.0 mL/min (>60); Globulin 3.2 g/dL (1.7-4.1); Glucose 95 mg/dL (70-100); HEMOLYSIS < 15 (0-50); Lipase 122 U/L (23-300); Sodium 139 mmol/L (137-145); Total Protein 7.9 g/dL (6.3-8.2)
[2019-02-14] MEDS: PANTOPRAZOLE 40 MG VIAL IV (14:33)
--- NOTE | 2019-02-14 14:40 | DI.CT.S_ITS ---
PROCEDURE: CT ABDOMEN PELVIS W CON INDICATIONS: LUQ pain with nausea, hx dony, appy, hystrectomy, hernia TECHNIQUE: After the administration of intravenous contrast, 5 mm thick sections acquired from the diaphragm to the symphysis. 5 mm coronal and sagittal reformats were acquired. For radiation dose reduction, the following was used: automated exposure control, adjustment of mA and/or kV according to patient size. COMPARISON: [facility], CT, CT ABDOMEN PELVIS W CON, 10/26/2018, 12:13. FINDINGS: Image quality: Excellent. ABDOMEN: Lung bases: Lung bases are clear. Heart size is normal. Solid organs: Liver is enlarged, and demonstrates diffusely decreased density. Gallbladder is surgically absent. Biliary system is non dilated. Pancreas enhances normally. Spleen is enlarged, measuring 16.7 cm craniocaudal. No adrenal nodules. Kidneys demonstrate normal size and enhancement, without hydronephrosis. Peritoneum and bowel: There are a few adjacent moderately distended and mildly thickened loops of small bowel within the left hemiabdomen. Stomach and colon are within normal limits. Appendix not seen. No evidence of appendicitis. No free fluid or air. Nodes and vessels: No retroperitoneal or mesenteric adenopathy by size criteria. Multiple mildly prominent subcentimeter mesenteric lymph nodes are present. Aorta and inferior vena cava are normal in size. Miscellaneous: No ventral hernias. PELVIS: Genitourinary: Bladder wall thickness is normal. Miscellaneous: No inguinal hernias or adenopathy. Bones: No suspicious bony lesions. No vertebral body compression fractures. IMPRESSION: 1. Mildly thickened and moderately distended loops of small bowel within the left hemiabdomen, which may indicate ileus, obstruction, or gastroenteritis. 2. Mildly prominent mesenteric lymph nodes, suggestive of mesenteric adenitis. 3. Appendix not seen. No evidence of appendicitis. 4. Hepatic steatosis. Dictated by: Syed Leslie M.D. on 02/14/2019 at 15:41 Approved by: Syed Leslie M.D. on 02/14/2019 at 15:45
[2019-02-14 15:34] VITALS: BP 102/56; PULSE 95; RESP 16; O2SAT 95
[2019-02-14] MEDS: DEXTROSE 5%-0.45% NS 1,000 ML 100 ML IV (17:32)
[2019-02-14] MEDS: KETOROLAC 30 MG/ML VIAL IV (17:35)
[2019-02-14 17:58] VITALS: BP 115/62; PULSE 91; RESP 16; TEMP 36.1; O2SAT 97
[2019-02-14 18:13] VITALS: BMI 40.7
[2019-02-14 18:45] VITALS: O2SAT 95
[2019-02-14] MEDS: HYDROMORPHONE 1 MG INJ IV (19:00)
--- NOTE | 2019-02-14 19:29 | PM.HP.1 ---
History of Present Illness History of Present Illness Date Patient Seen: 02/14/19 Time Patient Seen: 19:31 Chief complaint: left sided bad pain shooting up chest Narrative: Left-sided abdominal pain intermittent for the last 5 days persistent the last 24 hours. This is associated with some nausea and vomiting. Patient has had numerous abdominal operations including cholecystectomy appendectomy hysterectomy hernia repair. She has bipolar disorder and type 1 diabetes. She does have some neuropathy with the diabetes for which she takes gabapentin. Regarding her diabetes she is on Januvia and on a hypoglycemic diet blood sugars at home range between 150 and 300. Patient History Medical History Asthma (Acute) Benign tumor of groin (Acute) Diabetes (Acute) Multiple sclerosis (Acute) Obesity (Acute) Surgical History H/O hernia repair (Acute) H/O: hysterectomy (Acute) History of appendectomy (Acute) History of tonsillectomy (Acute) Hx of cholecystectomy (Acute) Family & Social History Social History: household members spouse Prior Living Arrangements House Safety & Behavioral: Feels Safe in Current Yes Environment Been Physically Hurt or No Threatened By a Person Suicidal Ideation Description None Suicide Plan Description No Plan Tobacco & Substance use: Smoking Status Current every day smoker alcohol intake current alcohol intake frequency 0-2 drinks per day Substance Use Type does not use Meds Home Medications and Allergies Home Medications Medication Instructions Recorded Confirmed Type cyclobenzaprine 5 mg PO BEDTIME PRN 09/20/18 02/14/19 History gabapentin 600 mg PO TID 09/20/18 02/14/19 History acetaminophen [Tylenol Extra 1,000 mg PO Q6H PRN 10/14/18 02/14/19 History Strength] ibuprofen 600 mg PO QID PRN 10/14/18 02/14/19 History sitagliptin [Januvia] 100 mg PO QPM 10/26/18 02/14/19 History tizanidine 2 mg PO TID 10/26/18 02/14/19 History Calcium Tablet 1 tab PO BID 02/14/19 02/14/19 History Fish Oil 1 cap PO TID 02/14/19 02/14/19 History bupropion HCl 300 mg PO DAILY 02/14/19 02/14/19 History iron 1 tab PO DAILY 02/14/19 02/14/19 History lamotrigine 200 mg PO BEDTIME 02/14/19 02/14/19 History meloxicam 7.5 mg PO BID 02/14/19 02/14/19 History omeprazole 20 mg PO DAILY 02/14/19 02/14/19 History Allergies Allergy/AdvReac Type Severity Reaction Status Date / Time diphenhydramine Allergy Severe Anaphylaxis Verified 10/26/18 11:28 amoxicillin Allergy Intermediate Rash Verified 10/26/18 11:28 metformin Allergy Intermediate Rash Verified 10/26/18 11:28 Penicillins Allergy Intermediate Verified 10/26/18 11:28 Sulfa (Sulfonamide Allergy Intermediate Rash Verified 10/26/18 11:28 Antibiotics) Review of Systems Review of Systems ROS Unobtainable: All systems reviewed & are unremarkable except as noted in HPI and below Exam Vital Signs (past 8 hours): - 02/14/19 12:58 02/14/19 15:34 02/14/19 18:45 Temperature 97.8 F Pulse Rate 100 H 95 H Respiratory Rate 18 16 Blood Pressure 111/78 Blood Pressure [Left Arm] 102/56 L Pulse Oximetry 100 95 95 Oxygen Delivery Method Room Air Narrative Exam Narrative: Patient is resting in bed with relative comfort at the moment only has minimal to moderate left-sided abdominal pain. Patient is obese with a BMI of 41. Ears nose and throat are unremarkable. Neck is without adenopathy. Lungs are clear with no rales or wheezes distant breath sounds. Heart regular rhythm no murmur no gallop. Abdomen is soft with moderate left upper quadrant tenderness. No masses are palpable there are no obvious hernias palpable. Extremities are unremarkable. Neurologic grossly intact. Objective Labs Result Diagrams: 02/14/19 13:30 02/14/19 13:30 Labs: Laboratory Results - last 24 hr 02/14/19 02/14/19 13:30 13:30 WBC 10.3 RBC 4.68 Hgb 13.7 Hct 40.5 MCV 86.6 MCH 29.3 MCHC 33.8 RDW 13.6 Plt Count 197 Neut % (Auto) 64.9 Lymph % (Auto) 27.3 [place] % (Auto) 5.6 Eos % (Auto) 1.4 L Baso % (Auto) 0.8 Neut # (Auto) 6700 Lymph # (Auto) 2800 [place] # (Auto) 600 Eos # (Auto) 100 Baso # (Auto) 100 Sodium 139 Potassium 4.0 Chloride 103 Carbon Dioxide 25 BUN 12 Creatinine 0.70 Estimated GFR > 60.0 BUN/Creatinine Ratio 17.1 Glucose 95 Calcium 10.0 Total Bilirubin 0.4 AST 25 ALT 47 H Alkaline Phosphatase 74 Total Protein 7.9 Albumin 4.7 Globulin 3.2 Albumin/Globulin Ratio 1.5 Lipase 122 Assessment & Plan Assessment & Plan narrative: Patient is had intermittent left-sided abdominal pain for 5 days which is now persistent. She has had nausea and vomiting for the last 24 hours. She states that she has not passed flatus for several days and has had no bowel movement for several days. CT of the abdomen done in the emergency department his consistent with possible ileus versus partial small bowel obstruction. Plan will be bowel rest IV fluids and repeat plain abdominal films in the morning. Patient is not vomiting now and so I have not inserted an NG tube. Will make a strong attempt to treat her conservatively. Quality VTE Deep Vein Thrombosis/Pulmonary Embolism Present on Admission: No
[2019-02-14] MEDS: SODIUM CHLORIDE 0.9% 1,000 ML 100 ML IV (19:55)
[2019-02-14 21:45] VITALS: BP 104/53; PULSE 86; RESP 16; TEMP 36.6; O2SAT 98
--- NOTE | 2019-02-14 23:29 | PC.NURSE ---
A&OX4. 98%RA. pt has her own cpap at bedside. RUQ pain radiating to back. pain controlled with dilaudid. pt has hx of falls. bed alarm active. IVF. oriented pt room. call light in reach. sips of water and ice chips ok per Dr. Palmer.
[2019-02-15] VITALS (7 sets, daily range): BP systolic 95–115; BP diastolic 54–66; PULSE 82–102; RESP 15–20; TEMP 36.3–36.7; O2SAT 96–100
[2019-02-15] MEDS: KETOROLAC 30 MG/ML VIAL IV ×5 (00:03→23:54)
--- NOTE | 2019-02-15 00:14 | PC.NURSE ---
Addendum entered by Mamta Hair R.N. 02/15/19 05:22: Pt noted with oxygen desaturations down to 87% on home CPAP when asleep. RT at bedside to eval. Oxygen 3L bleed in added with adequate result. Original Note: Weight discrepancy - pt has her own pillow from home that is weighted. Approximately 7-8 lbs.
--- NOTE | 2019-02-15 00:15 | PC.NURSE ---
weight difference is a personal pillow on bed
[2019-02-15] MEDS: HYDROMORPHONE 1 MG INJ IV ×4 (01:27→21:52)
[2019-02-15] MEDS: SODIUM CHLORIDE 0.9% 1,000 ML 100 ML IV (05:32)
--- NOTE | 2019-02-15 08:00 | DI.RAD.S_ITS ---
PROCEDURE: XR ACUTE ABDOMEN SERIES INDICATIONS: SBO TECHNIQUE: One view chest and two views of the abdomen were acquired. COMPARISON: None. FINDINGS: Surgical changes and devices: Cholecystectomy clips. Chest: Lungs are clear. Heart size is normal. No pleural effusions. No pneumoperitoneum. Abdomen: Bowel gas pattern is normal. Large amount of fecal debris. No suspicious calcifications. Visualized solid organ contours appear normal. Bones: No suspicious bony lesions. IMPRESSION: Large amount of fecal debris. No evidence of bowel obstruction. Dictated by: Dionicio Leyva M.D. on 02/15/2019 at 10:30 Approved by: Dionicio Leyva M.D. on 02/15/2019 at 10:31
[2019-02-15] MEDS: ENOXAPARIN 40 MG/0.4 ML SYRINGE SUBCUT (08:26)
[2019-02-15] MEDS: BISACODYL 10 MG SUPP PR (08:28)
[2019-02-15] MEDS: PANTOPRAZOLE 40 MG VIAL IV (08:28)
[2019-02-15 08:54] LABS: Add Manual Diff / Slide Review NO; Basophils Absolute Auto 0 /uL (0-100); Basophils Percent Auto 0.6 % (0-2); Eosinophils Absolute Auto 100 /uL (0-450); Eosinophils Percent Auto 1.9 % (2-4); Hematocrit 36.4 % (36-46); Hemoglobin 12.3 g/dL (12.0-16.0); Lymphocytes Absolute Auto 2100 /uL (1100-4500); Lymphocytes Percent Auto 30.3 % (25-40); Mean Corpuscular HGB Conc 33.7 % (30-36); Mean Corpuscular Hemoglobin 29.3 PG (26-34); Mean Corpuscular Volume 86.8 fL (80-100); Monocytes Absolute Auto 400 /uL (0-900); Monocytes Percent Auto 5.7 % (3-14); Neutrophils Absolute Auto 4200 /uL (1500-7000); Neutrophils Percent Auto 61.5 % (50-75); Platelet Count 161 X10^3/uL (150-400); Red Blood Cell Count 4.19 X10^6/uL (4.0-5.2); Red Cell Distribution Width 13.6 % (11.6-14.8); White Blood Cell Count 6.8 X10^3/uL (4.5-11.0)
[2019-02-15 09:04] LABS: BUN Creatinine Ratio 17.1 (6-22); Blood Urea Nitrogen 12 mg/dL (7-17); Carbon Dioxide 23 mmol/L (22-32); Chloride 108 mmol/L (98-107); Estimated Glomerular Filt Rate > 60.0 mL/min (>60); Glucose 109 mg/dL (70-100); HEMOLYSIS < 15 (0-50); Potassium 4.2 mmol/L (3.4-5.1); Sodium 140 mmol/L (137-145)
--- NOTE | 2019-02-15 10:22 | P.PN_ITS ---
Subjective Subjective Date Patient Seen: 02/15/19 Time Patient Seen: 10:23 Interval history: Patient is still complaining of upper abdominal pain particularly in the left side. No nausea vomiting. Had a small bowel movement this morning. Exam Vital Signs (past 8 hours): - 02/15/19 08:10 Temperature 97.8 F Pulse Rate 87 Respiratory Rate 20 Blood Pressure 102/54 L Pulse Oximetry 98 Oxygen Delivery Method CPAP Oxygen Flow Rate 0 Narrative Exam Narrative: Patient is sitting up in a bedside commode and has been to x-ray where I accompanied her for her abdominal series this morning. Patient has morbid obesity sore abdomen is somewhat distended difficult to evaluate for distention. Moderate tenderness left upper quadrant similar to last night. No hernias no masses. Bowel sounds are active. Objective Labs Result Diagrams: 02/15/19 08:40 02/15/19 08:40 Labs: Laboratory Results - last 24 hr 02/14/19 02/14/19 02/15/19 13:30 13:30 08:40 WBC 10.3 6.8 RBC 4.68 4.19 Hgb 13.7 12.3 Hct 40.5 36.4 MCV 86.6 86.8 MCH 29.3 29.3 MCHC 33.8 33.7 RDW 13.6 13.6 Plt Count 197 161 Neut % (Auto) 64.9 61.5 Lymph % (Auto) 27.3 30.3 [place] % (Auto) 5.6 5.7 Eos % (Auto) 1.4 L 1.9 L Baso % (Auto) 0.8 0.6 Neut # (Auto) 6700 4200 Lymph # (Auto) 2800 2100 [place] # (Auto) 600 400 Eos # (Auto) 100 100 Baso # (Auto) 100 0 Sodium 139 Potassium 4.0 Chloride 103 Carbon Dioxide 25 BUN 12 Creatinine 0.70 Estimated GFR > 60.0 BUN/Creatinine Ratio 17.1 Glucose 95 Calcium 10.0 Total Bilirubin 0.4 AST 25 ALT 47 H Alkaline Phosphatase 74 Total Protein 7.9 Albumin 4.7 Globulin 3.2 Albumin/Globulin Ratio 1.5 Lipase 122 02/15/19 08:40 WBC RBC Hgb Hct MCV MCH MCHC RDW Plt Count Neut % (Auto) Lymph % (Auto) [place] % (Auto) Eos % (Auto) Baso % (Auto) Neut # (Auto) Lymph # (Auto) [place] # (Auto) Eos # (Auto) Baso # (Auto) Sodium 140 Potassium 4.2 Chloride 108 H Carbon Dioxide 23 BUN 12 Creatinine 0.70 Estimated GFR > 60.0 BUN/Creatinine Ratio 17.1 Glucose 109 H Calcium 9.0 Total Bilirubin AST ALT Alkaline Phosphatase Total Protein Albumin Globulin Albumin/Globulin Ratio Lipase Assessment & Plan Assessment & Plan narrative: Patient remains afebrile. Her white count remains normal. abdominal x-rays this morning reveal oral contrast from her CT done yesterday in the emergency department now residing in the colon with plenty of stool gas and contrast in the right and transverse colon. I do not see sig nificant small-bowel loops. My impression is she is suffering from an ileus perhaps related to her medications. We will stimulate her bowel with Reglan and and some oral laxatives. Continue Dulcolax rectal suppositories. Start clear liquid diet today. Quality VTE Deep Vein Thrombosis/Pulmonary Embolism Present on Admission: No
[2019-02-15] MEDS: POLYETHYLENE GLYCOL 3350 17 GM POWD.PACK PO (11:29)
--- NOTE | 2019-02-15 11:29 | CM.DANOTE ---
DCP Assistance: EMR reviewed: patient is a 28 yr old female with hx of MS and bi-polar. patient was admitted to IP for bowel obstruction and abdominal/ chest pain. PCP is LOUANN Aguilar. CM met with patient at the bedside and explained what CM/RN role. Patient was alert and oriented at time of CM visit. DME: patient has a FWW, Cane at home. Patient lives with her Chidi and their daughter at home in [place]. PT evaluation pending. Insurance: [employer] 2nd: Medicaid. Plan: D/C home with family when medically stable. No identified D/C planning needs noted at this time. Cm department will follow closely to see if any D/C needs arise during IP stay. Vandana Cerda RN Discharge Planning/Care Management CM Discharge Assessment Start: 02/15/19 11:27 Freq: Status: Active Protocol: Document 02/15/19 11:27 HS (Rec: 02/15/19 11:29 HS [id number]) Discharge Planning Assessment Assigned Ironing Worker Vandana Cerda RN DPOA/Assigned Designee Name Chidi vallejo. Contact Information [phone] Advance Directives? No History Provided By Patient Has Patient been admitted in last 30 No days? Prior Living Arrangements House Household Members spouse,children Type of transporation used prior to Drives own vehicle admit Independent with ADL's Yes Is patient alert and oriented? Yes Caregiver for Another Yes: Daughter DME Already Rented / Owned Bath Bench,FWW / Walker,Cane Discharge Plan Home Whiteboard Updated in Patient Room with Yes name and ext. # of Ironing Worker Review Status In Process Next Review Type Continued Stay Review
[2019-02-15] MEDS: GABAPENTIN 600 MG TABLET PO ×3 (11:30→21:55)
[2019-02-15] MEDS: SIMETHICONE 80 MG TABLET PO ×4 (11:30→21:52)
[2019-02-15] MEDS: METOCLOPRAMIDE 10 MG/2 ML INJ IV ×2 (14:31→21:52)
[2019-02-15] MEDS: LORazepam 2 MG/ML INJ 1 MG IV (19:56)
[2019-02-15] MEDS: lamoTRIgine 100 MG TABLET 200 MG PO (21:53)
[2019-02-16] MEDS: LORazepam 2 MG/ML INJ 1 MG IV (01:19)
[2019-02-16] MEDS: HYDROMORPHONE 1 MG INJ IV ×5 (02:10→21:34)
[2019-02-16] MEDS: KETOROLAC 30 MG/ML VIAL IV ×2 (05:34→11:13)
[2019-02-16] MEDS: METOCLOPRAMIDE 10 MG/2 ML INJ IV ×2 (05:35→13:33)
[2019-02-16 07:59] VITALS: O2SAT 97
[2019-02-16 08:03] VITALS: BP 118/60; PULSE 79; RESP 18; TEMP 37; O2SAT 97
--- NOTE | 2019-02-16 09:42 | PM.PN.1 ---
Subjective Subjective Date Patient Seen: 02/16/19 Time Patient Seen: 09:42 Interval history: Patient is sleeping comfortably in bed had to be awakened for examination. She states that her abdominal pain is improving that she has no nausea or vomiting. She has had another bowel movement. Exam Vital Signs (past 8 hours): - 02/16/19 07:59 02/16/19 08:03 Temperature 98.6 F Pulse Rate 79 Respiratory Rate 18 Blood Pressure 118/60 Pulse Oximetry 97 97 Oxygen Delivery Method Room Air Oxygen Flow Rate 0 Narrative Exam Narrative: Patient is afebrile Abdomen is not distended she has morbid obesity. She has much less tenderness today. She is has slight tenderness in the left upper quadrant. Objective Labs Result Diagrams: 02/15/19 08:40 02/15/19 08:40 Assessment & Plan Assessment & Plan narrative: Abdominal x-rays yesterday were completely normal showing no signs of obstruction but does show a copious amount of colonic stool. We are trying to get her bowels functioning again with p.o. and upper rectum stimulants. Advanced her to a full liquid diet and stop her IV fluids. Will try to get her to ambulate in the halls as well. Quality VTE Deep Vein Thrombosis/Pulmonary Embolism Present on Admission: No
[2019-02-16] MEDS: GABAPENTIN 600 MG TABLET PO ×3 (09:57→21:34)
[2019-02-16] MEDS: BISACODYL 10 MG SUPP PR (09:57)
[2019-02-16] MEDS: SIMETHICONE 80 MG TABLET PO ×4 (09:57→21:34)
[2019-02-16] MEDS: ENOXAPARIN 40 MG/0.4 ML SYRINGE SUBCUT (09:57)
[2019-02-16] MEDS: POLYETHYLENE GLYCOL 3350 17 GM POWD.PACK PO (09:57)
[2019-02-16] MEDS: BISACODYL 5 MG TABLET PO ×2 (10:06→21:34)
[2019-02-16 10:19] VITALS: O2SAT 92
[2019-02-16] MEDS: FLEETS ENEMA 1 EACH PR (11:09)
[2019-02-16 15:39] VITALS: BP 130/69; PULSE 100; RESP 17; TEMP 36.6; O2SAT 94
[2019-02-16] MEDS: lamoTRIgine 100 MG TABLET 200 MG PO (21:38)
[2019-02-16] MEDS: PANTOPRAZOLE 20 MG TABLET PO (21:42)
[2019-02-17] VITALS: BP 136/73; PULSE 114; RESP 18; TEMP 37.3; O2SAT 98
[2019-02-17] MEDS: HYDROMORPHONE 1 MG INJ IV ×2 (02:33→09:14)
[2019-02-17 05:30] VITALS: BP 107/72; PULSE 94; RESP 18; TEMP 37; O2SAT 96
[2019-02-17 07:00] VITALS: O2SAT 94
[2019-02-17] MEDS: METOCLOPRAMIDE HCL 10 MG TABLET 5 MG PO (07:29)
[2019-02-17 07:30] VITALS: BP 126/80; PULSE 94; RESP 14; TEMP 37; O2SAT 94
[2019-02-17] MEDS: PANTOPRAZOLE 20 MG TABLET PO (07:30)
--- NOTE | 2019-02-17 08:40 | PM.DS.1 ---
History of Present Illness History of Present Illness Chief complaint: left sided bad pain shooting up chest Narrative: Left-sided abdominal pain intermittent for the last 5 days persistent the last 24 hours. This is associated with some nausea and vomiting. Patient has had numerous abdominal operations including cholecystectomy appendectomy hysterectomy hernia repair. She has bipolar disorder and type 1 diabetes. She does have some neuropathy with the diabetes for which she takes gabapentin. Regarding her diabetes she is on Januvia and on a hypoglycemic diet blood sugars at home range between 150 and 300. Discharge Providers Provider Date of admission: 02/14/19 16:45 Discharge Date: 02/17/19 Discharge provider: Marvin Palmer MD Summary Hospital Course Discharge Diagnosis: Functional constipation likely secondary to her neurologic dysfunction possible multiple sclerosis and diabetes Hospital Course: Patient was admitted through the emergency department with abdominal pain and vomiting. Originally was felt to possibly have a small-bowel obstruction however this was proven not be the case. She was given bowel stimulants laxative enemas and with a normal x-ray began to have normal bowel movements. She tolerated a solid diet by the time of discharge and was much improved. She has been instructed to avoid being constipated or becoming constipated by using natural fruits and diet control and occasional laxatives or enemas. She will follow up with her medical physician. Status at Discharge Cognitive/behavioral status at discharge: oriented Functional status at discharge: independent ambulation Overall status at discharge: patient is back to baseline Time Spent with Patient Time spent: Less than 30 minutes Exam Vital Signs (past 8 hours): - 02/17/19 05:30 Temperature 98.6 F Pulse Rate 94 H Respiratory Rate 18 Blood Pressure 107/72 Pulse Oximetry 96 Oxygen Delivery Method Room Air Oxygen Flow Rate 0 Objective Labs Result Diagrams: 02/15/19 08:40 02/15/19 08:40 Discharge Plan Discharge Plan Patient Disposition: Home Discharge Med Rec/Prescriptions Prescriptions: Continued lamotrigine 100 mg tablet 200 mg PO BEDTIME RF: 0 bupropion HCl 300 mg tablet extended release 24 hr 300 mg PO DAILY RF: 0 meloxicam 7.5 mg tablet 7.5 mg PO BID RF: 0 Calcium Tablet 1 tab PO BID RF: 0 Fish Oil 1 cap PO TID RF: 0 iron 1 tab PO DAILY RF: 0 omeprazole 20 mg capsule,delayed release(DR/EC) 20 mg PO DAILY RF: 0 gabapentin 600 mg Tablet 600 mg PO TID RF: 0 cyclobenzaprine 5 mg Tablet 5 mg PO BEDTIME PRN (Reason: muscle spasms) RF: 0 acetaminophen [Tylenol Extra Strength] 500 mg Tablet 1,000 mg PO Q6H PRN (Reason: Pain (Scale Score 4-6)) RF: 0 ibuprofen 600 mg Tablet 600 mg PO QID PRN (Reason: Pain (Scale Score 4-6)) RF: 0 sitagliptin 100 mg tablet 100 mg PO QPM RF: 0 tizanidine 2 mg Tablet 2 mg PO TID RF: 0 Provider Discharge Instructions Diet: Diet as Tolerated Activity: walk as much as possible Skin/Wound/Dressing Care Report to your healthcare provider any signs of infection, such as:: increased pain Quality VTE Deep Vein Thrombosis/Pulmonary Embolism Present on Admission: No
[2019-02-17] MEDS: GABAPENTIN 600 MG TABLET PO (09:06)
[2019-02-17] MEDS: ENOXAPARIN 40 MG/0.4 ML SYRINGE SUBCUT (09:06)
[2019-02-17] MEDS: POLYETHYLENE GLYCOL 3350 17 GM POWD.PACK PO (09:06)
[2019-02-17] MEDS: BISACODYL 5 MG TABLET PO (09:07)
[2019-02-17] MEDS: SIMETHICONE 80 MG TABLET PO (09:07)
--- NOTE | 2019-02-17 12:37 | PC.NURSE ---
Addendum entered by Carolina Quinones R.N. 02/17/19 12:37: Pt discharged per MD order. Pt verbalized understanding of all d/c instructions. Pt requests letter to excuse missed work to give to her employer. Called Lizz at [facility] who will have letter completed. Msg left on pt's phone number that was provided [phone] for pt to parts picker letter at [facility] office. Pt left in stable condition with all personal belongings. Original Note: Pt
== END 2019-02-17 12:30 | disposition home or self-care (01) ==
LOC: ED 12:55 → AC 17:20
PROVIDERS: Admitting Provider Surgery; Emergency Provider Nurse Practitioner Family; Visit Provider Surgery
DX: K59.04 Chronic idiopathic constipation (principal); R10.12 Left upper quadrant pain; R11.10 Vomiting, unspecified; K56.7 Ileus, unspecified; E66.9 Obesity, unspecified; Z68.41 Body mass index [BMI] 40.0-44.9, adult; E10.40 Type 1 diabetes mellitus with diabetic neuropathy, unspecified; Z79.4 Long term (current) use of insulin; F31.9 Bipolar disorder, unspecified; G35 Multiple sclerosis; F17.210 Nicotine dependence, cigarettes, uncomplicated; R00.0 Tachycardia, unspecified
CPT/HCPCS: 36415; 74022; 74177; 76700; 80048; 80053; 81003; 82962; 83690; 85025; 93005; 93010; 94760; 94762; 96361; 96374; 96375; 96376; 99217; 99218; 99224; 99283; 99285; G0378; C9113; J1170; J1650; J1885; J2060; J2270; J2405; J2765; Q9967

== ENCOUNTER 2019-02-20 14:12 | Emergency (ER) | payer OTHER, MEDICAID, SELFPAY ==
[2019-02-20 15:28] VITALS: BP 138/86; PULSE 105; RESP 16; TEMP 35.9; O2SAT 99; BMI 37.0
[2019-02-20] MEDS: ONDANSETRON 4 MG ODT SL (15:40)
[2019-02-20 16:02] LABS: Prothrombin Time 11.4 SECONDS (10.1-12.7)
[2019-02-20 16:04] LABS: Alanine Aminotransferase 56 IU/L (<35); Albumin 4.5 g/dL (3.5-5.0); Albumin Globulin Ratio 1.3 (1.0-2.8); Alkaline Phosphatase 67 U/L (38-126); Aspartate Aminotransferase 22 IU/L (14-36); Bilirubin Total 0.4 mg/dL (0.2-1.3); Blood Urea Nitrogen 9 mg/dL (7-17); Calcium 9.9 mg/dL (8.4-10.2); Carbon Dioxide 25 mmol/L (22-32); Chloride 105 mmol/L (98-107); Estimated Glomerular Filt Rate > 60.0 mL/min (>60); Globulin 3.6 g/dL (1.7-4.1); Glucose 120 mg/dL (70-100); HEMOLYSIS < 15 (0-50); Lipase 138 U/L (23-300); Potassium 4.3 mmol/L (3.4-5.1); Sodium 140 mmol/L (137-145); Total Protein 8.1 g/dL (6.3-8.2)
[2019-02-20 16:05] LABS: Add Manual Diff / Slide Review NO; Basophils Absolute Auto 0 /uL (0-100); Basophils Percent Auto 0.4 % (0-2); Eosinophils Absolute Auto 100 /uL (0-450); Eosinophils Percent Auto 1.3 % (2-4); Lymphocytes Absolute Auto 2300 /uL (1100-4500); Lymphocytes Percent Auto 20.2 % (25-40); Mean Corpuscular HGB Conc 34.3 % (30-36); Mean Corpuscular Hemoglobin 29.3 PG (26-34); Mean Corpuscular Volume 85.4 fL (80-100); Monocytes Absolute Auto 500 /uL (0-900); Monocytes Percent Auto 4.3 % (3-14); Neutrophils Absolute Auto 8400 /uL (1500-7000); Neutrophils Percent Auto 73.8 % (50-75); PTT Partial Thromboplastin Tim 34 SECONDS (26.4-36.2); Platelet Count 234 X10^3/uL (150-400); Red Cell Distribution Width 13.4 % (11.6-14.8); White Blood Cell Count 11.3 X10^3/uL (4.5-11.0)
--- NOTE | 2019-02-20 17:28 | DI.CT.S_ITS ---
PROCEDURE: CT ABDOMEN PELVIS W CON INDICATIONS: h/o SOB 4 days, LUQ abd pain. TECHNIQUE: After the administration of intravenous contrast, 5 mm thick sections acquired from the diaphragm to the symphysis. 5 mm coronal and sagittal reformats were acquired. For radiation dose reduction, the following was used: automated exposure control, adjustment of mA and/or kV according to patient size. COMPARISON: [facility], CT, CT ABDOMEN PELVIS W CON, 02/14/2019, 15:00. FINDINGS: Image quality: Excellent. ABDOMEN: Lung bases: Lung bases are clear. Heart size is normal. Solid organs: Liver is mildly enlarged and moderately diffusely hypodense. Gallbladder is surgically absent. Biliary system is non dilated. Pancreas enhances normally. Spleen is is elongated measuring 17.3 cm in length. No adrenal nodules. Kidneys demonstrate normal size and enhancement, without hydronephrosis. Peritoneum and bowel: Bowel loops demonstrate normal wall thickness and caliber. The appendix is surgically absent. No free fluid or air. Nodes and vessels: No retroperitoneal or mesenteric adenopathy by size criteria. Aorta and inferior vena cava are normal in size. Miscellaneous: No ventral hernias. There is preperitoneal mesh visible PELVIS: Genitourinary: Bladder wall thickness is normal. The uterus is surgically absent. Miscellaneous: No inguinal hernias or adenopathy. Mild pelvic floor descent. Bones: No suspicious bony lesions. No vertebral body compression fractures. IMPRESSION: 1. Hepatosplenomegaly. 2. Moderate hepatic steatosis. 3. Post cholecystectomy, appendectomy, hysterectomy and ventral hernia repair. 4. No CT evidence of acute process. Dictated by: Katelyn Olivo M.D. on 02/20/2019 at 19:51 Approved by: Katelyn Olivo M.D. on 02/20/2019 at 19:58
--- NOTE | 2019-02-20 17:31 | ED.ABDPAIN ---
HPI - Abdominal Pain <Grisel Zavala [employer] - Last Filed: 02/20/19 21:44> General Chief Complaint: Abdominal Pain Stated Complaint: Severe Left Side Abd Pain Time Seen by Provider: 02/20/19 16:49 Source: patient Mode of arrival: Ambulatory Limitations: no limitations History of Present Illness HPI narrative: 28-year-old female with a history of a hysterectomy, appendectomy, cholecystectomy, presents to the emergency department complaining of 10/10 sharp stabbing abd pain that started this morning. She reports she was recently discharged from [facility] on 02/17/2019 for a small-bowel obstruction, she reports she was on bowel rest and stated they ?flushed everything out. She did not have surgery at this time. Her last BM was today and she reports this as being normal. She has been taking Tylenol and ibuprofen for pain. However, once the pain developed this morning she was worried about a complication. She reports nausea but denies vomiting, diarrhea, dysuria, chest pain, shortness of breath, fevers, or other concerns. Related Data Home Medications Medication Instructions Recorded Confirmed cyclobenzaprine 5 mg PO BEDTIME PRN 09/20/18 02/14/19 gabapentin 600 mg PO TID 09/20/18 02/14/19 acetaminophen [Tylenol Extra 1,000 mg PO Q6H PRN 10/14/18 02/14/19 Strength] ibuprofen 600 mg PO QID PRN 10/14/18 02/14/19 sitagliptin 100 mg PO QPM 10/26/18 02/14/19 tizanidine 2 mg PO TID 10/26/18 02/14/19 Calcium Tablet 1 tab PO BID 02/14/19 02/14/19 Fish Oil 1 cap PO TID 02/14/19 02/14/19 bupropion HCl 300 mg PO DAILY 02/14/19 02/14/19 iron 1 tab PO DAILY 02/14/19 02/14/19 lamotrigine 200 mg PO BEDTIME 02/14/19 02/14/19 meloxicam 7.5 mg PO BID 02/14/19 02/14/19 omeprazole 20 mg PO DAILY 02/14/19 02/14/19 Allergies Allergy/AdvReac Type Severity Reaction Status Date / Time diphenhydramine Allergy Severe Anaphylaxis Verified 02/20/19 15:32 amoxicillin Allergy Intermediate Rash Verified 02/20/19 15:32 metformin Allergy Intermediate Rash Verified 02/20/19 15:32 Penicillins Allergy Intermediate Verified 02/20/19 15:32 Sulfa (Sulfonamide Allergy Intermediate Rash Verified 02/20/19 15:32 Antibiotics) Review of Systems <VEENA Sy - Last Filed: 02/20/19 21:44> Review of Systems Narrative: REVIEW OF SYSTEMS: GENERAL: Denies fever, chills, malaise, or wt. loss. HENT: No head trauma, sore throat, or dysphagia. EYES: No loss of vision, double vision, eye pain, or irritation. CARDIOVASCULAR: No chest pain, palpitations, or orthopnea. RESPIRATORY: No shortness of breath or cough. GASTROINTESTINAL: Complains of LUQ abdominal pain, see HPI GENITOURINARY: No flank pain, urinary incontinence, hesitancy, frequency, or dysuria. No vaginal discharge or dyspareunia. Denies concerns for STIs MUSCULOSKELETAL: No pain, weakness, or trauma. INTEGUMENTARY: No rash, lesions, or pruritus. NEURO: No numbness, tingling, memory loss, confusion, or headaches. PSYCH: No behavior or mood changes. Patient History <VEENA Sy - Last Filed: 02/20/19 21:44> Medical History Asthma (Acute) Benign tumor of groin (Acute) Diabetes (Acute) Multiple sclerosis (Acute) Obesity (Acute) Surgical History H/O hernia repair (Acute) H/O: hysterectomy (Acute) History of appendectomy (Acute) History of tonsillectomy (Acute) Hx of cholecystectomy (Acute) Social History household members: spouse and children Smoking Status: Current every day smoker alcohol intake: current tobacco type: cigarettes alcohol intake frequency: 0-2 drinks per day Substance Use Type: does not use Exam <VEENA Sy - Last Filed: 02/20/19 21:44> Narrative Exam Narrative: PHYSICAL EXAMINATION: GENERAL: Well groomed, alert, and cooperative. Answers questions promptly and appropriately. Vital signs noted. HENT: Normocephalic, atraumatic. Hearing intact. Oral mucosa is pink and moist. EYES: Conjunctiva pink, sclera white, no periorbital swelling. CARDIOVASCULAR: S1 and S2 sounds normal. Regular rate and rhythm, no murmurs, clicks, or bruits. No pedal edema. RESPIRATORY: Normal respiratory rate, trachea midline, airway patent. No stridor, nasal flaring or accessory muscle use. Lungs are clear in all judge without wheeze, rhonchi, or crackles. GASTROINTESTINAL: Bowel sounds normoactive. Abdomen is soft and LUQ tenderness. No organomegaly, no palpable masses. GENITALURINARY: Left CVA tenderness. MUSCULOSKELETAL: Normal gait and coordination. Equal tone and mass bilaterally. EXTREMITIES: CMS intact, no pedal edema. SKIN: Warm, dry, soft, appropriate color for ethnicity. No lesions, rashes, or wounds. NEURO: Alert and Oriented X 3. Good coordination. No ataxia, or sensory deficits, or cognitive issues. PSYCH: Appropriate affect and mood. Initial Vital Signs Initial Vital Signs: Vital Signs Temperature 96.6 F L 02/20/19 15:28 Pulse Rate 105 H 02/20/19 15:28 Respiratory Rate 16 02/20/19 15:28 Blood Pressure 138/86 02/20/19 15:28 Pulse Oximetry 99 02/20/19 15:28 <Alexander Jolly MD - Last Filed: 02/20/19 23:46> Initial Vital Signs Initial Vital Signs: Vital Signs Temperature 96.6 F L 02/20/19 15:28 Pulse Rate 105 H 02/20/19 15:28 Respiratory Rate 16 02/20/19 15:28 Blood Pressure 138/86 02/20/19 15:28 Pulse Oximetry 99 02/20/19 15:28 Course <VEENA Sy - Last Filed: 02/20/19 21:44> Course Course Narrative: Patient was given Zofran, fluids, and a dose of morphine for pain. She reports decreased symptoms after medications. Orders Ordered: ED Orders 02/20/19 15:46 Complete Blood Count AUTO DIFF Stat Comprehensive Metabolic Panel Stat Lipase Stat Partial Thromboplastin Time Stat Prothrombin Time INR Stat 02/20/19 17:28 CT abdomen pelvis w con Stat Discontinued Medications Sodium Chloride (Normal Saline 0.9%) 1,000 mls @ 1,000 mls/hr IV BOLUS ONE Stop: 02/20/19 18:54 Last Infusion: 02/20/19 20:55 Dose: 0 mls/hr Documented by: Admin: 02/20/19 18:59 Dose: 1,000 mls/hr Documented by: ELIZABETH Morphine Sulfate (Morphine) 4 mg IV NOW ONE Stop: 02/20/19 20:21 Last Admin: 02/20/19 20:30 Dose: 4 mg Documented by: GENIE Ondansetron HCl (Zofran Odt) 4 mg SL NOW ONE Stop: 02/20/19 15:38 Last Admin: 02/20/19 15:40 Dose: 4 mg Documented by: GENIE Consultations Consultation #1: Patient was staffed with Dr. Cody and Dr. Jolly per protocol. Vital Signs Vital signs: Vital Signs - 8 hr 02/20/19 18:56 02/20/19 20:39 Pulse Rate 102 H 100 H Respiratory Rate 16 14 Blood Pressure [Left Arm] 99/68 116/76 Pulse Oximetry 99 100 <Alexander Jolly MD - Last Filed: 02/20/19 23:46> Orders Ordered: ED Orders 02/20/19 15:46 Complete Blood Count AUTO DIFF Stat Comprehensive Metabolic Panel Stat Lipase Stat Partial Thromboplastin Time Stat Prothrombin Time INR Stat 02/20/19 17:28 CT abdomen pelvis w con Stat Discontinued Medications Sodium Chloride (Normal Saline 0.9%) 1,000 mls @ 1,000 mls/hr IV BOLUS ONE Stop: 02/20/19 18:54 Last Infusion: 02/20/19 20:55 Dose: 0 mls/hr Documented by: Admin: 02/20/19 18:59 Dose: 1,000 mls/hr Documented by: ELIZABETH Morphine Sulfate (Morphine) 4 mg IV NOW ONE Stop: 02/20/19 20:21 Last Admin: 02/20/19 20:30 Dose: 4 mg Documented by: GENIE Ondansetron HCl (Zofran Odt) 4 mg SL NOW ONE Stop: 02/20/19 15:38 Last Admin: 02/20/19 15:40 Dose: 4 mg Documented by: GENIE Vital Signs Vital signs: Vital Signs - 8 hr 02/20/19 18:56 02/20/19 20:39 Pulse Rate 102 H 100 H Respiratory Rate 16 14 Blood Pressure [Left Arm] 99/68 116/76 Pulse Oximetry 99 100 MDM - Abdominal Pain <Grisel AngelagwendolynVEENA - Last Filed: 02/20/19 21:44> Medical Records Attestation: I reviewed the patient's medical records. Lab Data Attestation: I reviewed the patient's lab results. Result diagrams: 02/20/19 15:46 02/20/19 15:46 Labs: Lab Results 02/20/19 02/20/19 02/20/19 Range/Units 15:46 15:46 15:46 WBC 11.3 H (4.5-11.0) X10^3/uL RBC 4.80 (4.0-5.2) X10^6/uL Hgb 14.0 (12.0-16.0) g/dL Hct 41.0 (36-46) % MCV 85.4 (80-100) fL MCH 29.3 (26-34) PG MCHC 34.3 (30-36) % RDW 13.4 (11.6-14.8) % Plt Count 234 (150-400) X10^3/uL Neut % (Auto) 73.8 (50-75) % Lymph % (Auto) 20.2 L (25-40) % [place] % (Auto) 4.3 (3-14) % Eos % (Auto) 1.3 L (2-4) % Baso % (Auto) 0.4 (0-2) % Neut # (Auto) 8400 H (9037-6904) /uL Lymph # (Auto) 2300 (9939-2317) /uL [place] # (Auto) 500 (0-900) /uL Eos # (Auto) 100 (0-450) /uL Baso # (Auto) 0 (0-100) /uL PT 11.4 (10.1-12.7) SECONDS INR 1.0 (0.9-1.3) APTT 34 D (26.4-36.2) SECONDS Sodium 140 (137-145) mmol/L Potassium 4.3 (3.4-5.1) mmol/L Chloride 105 (98-107) mmol/L Carbon Dioxide 25 (22-32) mmol/L BUN 9 (7-17) mg/dL Creatinine 0.50 L (0.52-1.04) mg/dL Estimated GFR > 60.0 (>60) mL/min BUN/Creatinine Ratio 18.0 (6-22) Glucose 120 H (70-100) mg/dL Calcium 9.9 (8.4-10.2) mg/dL Total Bilirubin 0.4 (0.2-1.3) mg/dL AST 22 (14-36) IU/L ALT 56 H (<35) IU/L Alkaline Phosphatase 67 (38-126) U/L Total Protein 8.1 (6.3-8.2) g/dL Albumin 4.5 (3.5-5.0) g/dL Globulin 3.6 (1.7-4.1) g/dL Albumin/Globulin Ratio 1.3 (1.0-2.8) Lipase 138 (23-300) U/L Point of care testing: Urine Dip Bedside Urine Glucose Negative Bedside Urine Bilirubin - Negative Bedside Urine Ketone - Negative Urine Specific [place] 1.015 Bedside Urine Occult Blood - Negative Bedside Urine pH 7.5 Bedside Urine Protein - Negative Bedside Urine Urobilinogen - Negative Bedside Urine Nitrite - Negative Bedside Urine Leukocytes - Negative Esterase Imaging Data CT scan - abdomen: Radiologist's impression: [address] [address] [address] Scan Report Signed Patient: Muna Swift [facility]#: [id number] : 1990Acct:[id number] Age/Sex: 28 / FDate of Service: 02/20/19 Loc: ED Accession Number: [id number] Procedure: CT abdomen pelvis w con Ordering Provider: Grisel Zavala PROCEDURE: CT ABDOMEN PELVIS W CON INDICATIONS: h/o SOB 4 days, LUQ abd pain. TECHNIQUE: After the administration of intravenous contrast, 5 mm thick sections acquired from the diaphragm to the symphysis. 5 mm coronal and sagittal reformats were acquired. For radiation dose reduction, the following was used: automated exposure control, adjustment of mA and/or kV according to patient size. COMPARISON: [facility], CT, CT ABDOMEN PELVIS W CON, 02/14/2019, 15:00. FINDINGS: Image quality: Excellent. ABDOMEN: Lung bases: Lung bases are clear. Heart size is normal. Solid organs: Liver is mildly enlarged and moderately diffusely hypodense. Gallbladder is surgically absent. Biliary system is non dilated. Pancreas enhances normally. Spleen is is elongated measuring 17.3 cm in length. No adrenal nodules. Kidneys demonstrate normal size and enhancement, without hydronephrosis. Peritoneum and bowel: Bowel loops demonstrate normal wall thickness and caliber. The appendix is surgically absent. No free fluid or air. Nodes and vessels: No retroperitoneal or mesenteric adenopathy by size criteria. Aorta and inferior vena cava are normal in size. Miscellaneous: No ventral hernias. There is preperitoneal mesh visible PELVIS: Genitourinary: Bladder wall thickness is normal. The uterus is surgically absent. Miscellaneous: No inguinal hernias or adenopathy. Mild pelvic floor descent. Bones: No suspicious bony lesions. No vertebral body compression fractures. IMPRESSION: 1. Hepatosplenomegaly. 2. Moderate hepatic steatosis. 3. Post cholecystectomy, appendectomy, hysterectomy and ventral hernia repair. 4. No CT evidence of acute process. Dictated by: Katelyn Olivo M.D. on 02/20/2019 at 19:51 Approved by: Katelyn Olivo M.D. on 02/20/2019 at 19:58 MDM Narrative Medical decision making narrative: 28-year-old female with history of multiple abdominal surgeries and a recent SBO that was cleared without surgery complains of left upper quadrant abdominal pain. No acute etiology found on CT, no SBO at this time for imaging (this is less likely as she has had a bowel movement today). I suspect this pain is due to a chronic abdominal etiology. Less concern for acute abdominal etiology due to negative CT finding non-remarkable laboratory work. Less concern for gallbladder, appendix, or uterine etiology as patient has had all of these removed. It is possible her pain may be due to adhesions due to various abdominal surgeries. Strict return precautions given for new or worsening symptoms. Patient was encouraged to follow up with her primary care provider regarding CT findings in chronic abdominal pain. She was encouraged to continue on a bowel regimen that was given to her upon discharge. <Alexander Jolly MD - Last Filed: 02/20/19 23:46> Lab Data Labs: Lab Results 02/20/19 02/20/19 02/20/19 Range/Units 15:46 15:46 15:46 WBC 11.3 H (4.5-11.0) X10^3/uL RBC 4.80 (4.0-5.2) X10^6/uL Hgb 14.0 (12.0-16.0) g/dL Hct 41.0 (36-46) % MCV 85.4 (80-100) fL MCH 29.3 (26-34) PG MCHC 34.3 (30-36) % RDW 13.4 (11.6-14.8) % Plt Count 234 (150-400) X10^3/uL Neut % (Auto) 73.8 (50-75) % Lymph % (Auto) 20.2 L (25-40) % [place] % (Auto) 4.3 (3-14) % Eos % (Auto) 1.3 L (2-4) % Baso % (Auto) 0.4 (0-2) % Neut # (Auto) 8400 H (8472-0275) /uL Lymph # (Auto) 2300 (6557-2533) /uL [place] # (Auto) 500 (0-900) /uL Eos # (Auto) 100 (0-450) /uL Baso # (Auto) 0 (0-100) /uL PT 11.4 (10.1-12.7) SECONDS INR 1.0 (0.9-1.3) APTT 34 D (26.4-36.2) SECONDS Sodium 140 (137-145) mmol/L Potassium 4.3 (3.4-5.1) mmol/L Chloride 105 (98-107) mmol/L Carbon Dioxide 25 (22-32) mmol/L BUN 9 (7-17) mg/dL Creatinine 0.50 L (0.52-1.04) mg/dL Estimated GFR > 60.0 (>60) mL/min BUN/Creatinine Ratio 18.0 (6-22) Glucose 120 H (70-100) mg/dL Calcium 9.9 (8.4-10.2) mg/dL Total Bilirubin 0.4 (0.2-1.3) mg/dL AST 22 (14-36) IU/L ALT 56 H (<35) IU/L Alkaline Phosphatase 67 (38-126) U/L Total Protein 8.1 (6.3-8.2) g/dL Albumin 4.5 (3.5-5.0) g/dL Globulin 3.6 (1.7-4.1) g/dL Albumin/Globulin Ratio 1.3 (1.0-2.8) Lipase 138 (23-300) U/L Point of care testing: Urine Dip Bedside Urine Glucose Negative Bedside Urine Bilirubin - Negative Bedside Urine Ketone - Negative Urine Specific [place] 1.015 Bedside Urine Occult Blood - Negative Bedside Urine pH 7.5 Bedside Urine Protein - Negative Bedside Urine Urobilinogen - Negative Bedside Urine Nitrite - Negative Bedside Urine Leukocytes - Negative Esterase Discharge Plan Departure Patient Disposition: Home Clinical Impression: Continuous left upper quadrant pain, Hepatosplenomegaly Discharge Date/Time: 02/20/19 20:55 Instructions: DI for Abdominal Pain-Adult Activity Restrictions/Additional Instructions: Thank you for entrusting me with your care today. As discussed, your CT results showed enlarged liver and spleen but no sign of acute pain at this time. Your lab work was non concerning. Please continue on the bowel regimen that you were started on when your discharge from the hospital. Follow up with your primary care provider in the next week for re-evaluation severe abdominal pain. Return to the emergency department for new or worsening symptoms such as high fevers, uncontrollable vomiting, chest pain, or shortness of breath. Prescriptions: No Action lamotrigine 100 mg tablet 200 mg PO BEDTIME RF: 0 bupropion HCl 300 mg tablet extended release 24 hr 300 mg PO DAILY RF: 0 meloxicam 7.5 mg tablet 7.5 mg PO BID RF: 0 Calcium Tablet 1 tab PO BID RF: 0 Fish Oil 1 cap PO TID RF: 0 iron 1 tab PO DAILY RF: 0 omeprazole 20 mg capsule,delayed release(DR/EC) 20 mg PO DAILY RF: 0 gabapentin 600 mg Tablet 600 mg PO TID RF: 0 cyclobenzaprine 5 mg Tablet 5 mg PO BEDTIME PRN (Reason: muscle spasms) RF: 0 acetaminophen [Tylenol Extra Strength] 500 mg Tablet 1,000 mg PO Q6H PRN (Reason: Pain (Scale Score 4-6)) RF: 0 ibuprofen 600 mg Tablet 600 mg PO QID PRN (Reason: Pain (Scale Score 4-6)) RF: 0 sitagliptin 100 mg tablet 100 mg PO QPM RF: 0 tizanidine 2 mg Tablet 2 mg PO TID RF: 0 Referrals: Belen Aguilar PA-C [Primary Care Provider] - Stand Alone Forms: Work Release Note
[2019-02-20 18:56] VITALS: BP 99/68; PULSE 102; RESP 16; O2SAT 99
[2019-02-20] MEDS: SODIUM CHLORIDE 0.9% 1,000 ML 1000 ML IV (18:59)
[2019-02-20] MEDS: MORPHINE 4 MG/ML INJ IV (20:30)
[2019-02-20 20:39] VITALS: BP 116/76; PULSE 100; RESP 14; O2SAT 100
== END 2019-02-20 20:55 | disposition home or self-care (01) ==
PROVIDERS: Emergency Medicine; Emergency Provider Nurse Practitioner; PCP Physician Assistant
DX: R10.12 Left upper quadrant pain (principal); R16.2 Hepatomegaly with splenomegaly, not elsewhere classified; K56.609 Unspecified intestinal obstruction, unspecified as to partial versus complete obstruction
CPT/HCPCS: 36415; 74177; 80053; 81003; 83690; 85025; 85610; 85730; 96361; 96374; 99283; 99284; J2270

== ENCOUNTER 2019-02-27 19:09 | Emergency (ER) | payer OTHER, MEDICAID, SELFPAY ==
[2019-02-27 19:14] VITALS: BP 128/81; PULSE 116; RESP 22; TEMP 36.9; O2SAT 99
--- NOTE | 2019-02-27 19:19 | DI.RAD.S_ITS ---
PROCEDURE: XR CHEST 1V INDICATIONS: chest pain/dyspnea TECHNIQUE: One view of the chest was acquired. COMPARISON: None. FINDINGS: Surgical changes and devices: None. Lungs and pleura: Lungs are clear. No pleural effusions or pneumothorax. Mediastinum: Mediastinal contours appear normal. Heart size is normal. Bones and chest wall: No suspicious bony lesions. Overlying soft tissues appear unremarkable. IMPRESSION: 1. No acute cardiopulmonary disease. Dictated by: Edgar Mccollum M.D. on 02/27/2019 at 19:50 Approved by: Edgar Mccollum M.D. on 02/27/2019 at 19:50
--- NOTE | 2019-02-27 19:38 | ED_ITS ---
HPI - SOB/Dyspnea General Chief Complaint: Shortness of Breath/Dyspnea Stated Complaint: LEFT SIDE PAIN Time Seen by Provider: 02/27/19 19:10 Source: patient Mode of arrival: Wheelchair Limitations: no limitations History of Present Illness HPI Narrative: 28-year-old female daily smoker with history of morbid obesity, small bowel obstruction and recent hospitalization presents with a chief complaint of severe left-sided rib pain with shortness of breath. She was seen and evaluated under similar circumstances recently and had followed up with her primary care provider whom sent her here for repeat evaluation given the duration of her symptoms. Her left lower ribs are significantly tender to palpation as well as deep breaths or motion. She denies any recent injury but has been sneezing and coughing on occasion. The cough brings up no sputum and she denies any hemoptysis. She does state that the shortness of breath feels more related to the pain associated with a deep breath than the sensation that s he cannot breathe MD Complaint: shortness of breath, cough and pain with inspiration Onset (ago): day(s) Severity: moderate Consistency/Duration: constant Relieving factors: rest Exacerbating factors: movement, coughing and inspiration Associated symptoms: cough Treatment prior to arrival: none Related Data Home oxygen amount: none Home Medications Medication Instructions Recorded Confirmed cyclobenzaprine 5 mg PO BEDTIME PRN 09/20/18 02/14/19 gabapentin 600 mg PO TID 09/20/18 02/14/19 acetaminophen [Tylenol Extra 1,000 mg PO Q6H PRN 10/14/18 02/14/19 Strength] ibuprofen 600 mg PO QID PRN 10/14/18 02/14/19 sitagliptin 100 mg PO QPM 10/26/18 02/14/19 tizanidine 2 mg PO TID 10/26/18 02/14/19 Calcium Tablet 1 tab PO BID 02/14/19 02/14/19 Fish Oil 1 cap PO TID 02/14/19 02/14/19 bupropion HCl 300 mg PO DAILY 02/14/19 02/14/19 iron 1 tab PO DAILY 02/14/19 02/14/19 lamotrigine 200 mg PO BEDTIME 02/14/19 02/14/19 meloxicam 7.5 mg PO BID 02/14/19 02/14/19 omeprazole 20 mg PO DAILY 02/14/19 02/14/19 Previous Rx's Medication Instructions Recorded ketorolac 10 mg PO Q6H PRN #14 tab 02/27/19 lidocaine [Lidoderm] 1 patch TOP DAILY #15 each 02/27/19 ondansetron 4 mg PO TID-QID PRN #10 tab 02/27/19 Allergies Allergy/AdvReac Type Severity Reaction Status Date / Time diphenhydramine Allergy Severe Anaphylaxis Verified 02/27/19 19:24 amoxicillin Allergy Intermediate Rash Verified 02/27/19 19:24 metformin Allergy Intermediate Rash Verified 02/27/19 19:24 Penicillins Allergy Intermediate Verified 02/27/19 19:24 Sulfa (Sulfonamide Allergy Intermediate Rash Verified 02/27/19 19:24 Antibiotics) Review of Systems Constitutional Constitutional: Denies chills, Denies fatigue, Denies fever(s), Denies frequent falls, Denies lethargy and Denies weakness Eyes Eyes: Denies change in vision, Denies eye discharge, Denies irritation and Denies loss of vision ENT Ears, Nose, Mouth, and Throat: Denies change in voice, Denies dizziness, Denies neck pain, Denies sore throat and Denies throat swelling Cardiovascular Cardiovascular: Reports chest pain, Denies irregular heart rhythm, Denies lightheadedness, Denies palpitations, Denies dyspnea, Denies dyspnea on exertion and Denies orthopnea Respiratory Respiratory: Reports cough, Denies dyspnea, Denies dyspnea on exertion and Denies wheezing Gastrointestinal Gastrointestinal: Denies abdominal pain, Denies change in bowel habits, Denies diarrhea, Denies nausea and Denies vomiting Genitourinary Genitourinary: Denies hematuria, Denies flank pain, Denies urinary incontinence and Denies urinary urgency Musculoskeletal Musculoskeletal: Denies back pain, Denies muscle weakness, Denies neck pain, Denies numbness and Denies tingling Integumentary/Breasts Skin/Breast: Denies pruritus, Denies erythema, Denies rash and Denies wounds Neurologic Neurologic: Denies behavioral changes, Denies confusion, Denies dizziness, Denies frequent falls, Denies loss of vision, Denies numbness, Denies tingling and Denies weakness Psychiatric Psychiatric: Denies anxiety, Denies behavioral changes, Denies confusion, Denies depression, Denies homicidal ideation and Denies suicidal ideation Endocrine Endocrine: Denies fatigue, Denies flushing and Denies palpitations Hematologic/Lymphatic Hematologic/Lymphatic: Denies easy bruising Allergic/Immunologic Allergic/Immunologic: Denies urticaria, Denies throat swelling and Denies wheezing Patient History Medical History Asthma (Acute) Benign tumor of groin (Acute) Diabetes (Acute) Multiple sclerosis (Acute) Obesity (Acute) Surgical History H/O hernia repair (Acute) H/O: hysterectomy (Acute) History of appendectomy (Acute) History of tonsillectomy (Acute) Hx of cholecystectomy (Acute) Social History household members: spouse and children Smoking Status: Current every day smoker alcohol intake: current tobacco type: cigarettes alcohol intake frequency: 0-2 drinks per day Substance Use Type: does not use Exam Narrative Exam Narrative: GENERAL: [28] year old patient appears stated age. Well- nourished, well-developed patient, in moderate distress, clutching her left l ower ribs EYES: Pupils equal round and reactive. Extraocular motions intact. No scleral icterus. No injection or drainage. ENT: Nose without bleeding, purulent drainage. Throat without erythema, tons illar hypertrophy or exudate. Airway patent. NECK: Trachea midline. Non tender CARDIOVASCULAR: Regular rate and rhythm without murmurs, gallops, or rubs. RESPIRATORY: Clear to auscultation. Breath sounds equal bilaterally. No wheezes, rales, or rhonchi. Tender to palpation of left lower ribs GASTROINTESTINAL: Abdomen soft, non-tender, nondistended. EXTREMITIES: No edema or joint tenderness. BACK: Nontender without deformity or crepitance. No flank tenderness. NEURO: AOx3. SKIN: No rash or erythema of visible areas Initial Vital Signs Initial Vital Signs: Vital Signs Temperature 98.4 F 02/27/19 19:14 Pulse Rate 116 H 02/27/19 19:14 Respiratory Rate 22 02/27/19 19:14 Blood Pressure 128/81 02/27/19 19:14 Pulse Oximetry 99 02/27/19 19:14 Course Orders Ordered: ED Orders 02/27/19 19:19 Chest [XR chest 1V] Stat 02/27/19 19:38 CT abdomen pelvis w con Stat CT angio chest PE protocol Stat 02/27/19 20:00 Complete Blood Count AUTO DIFF Stat Comprehensive Metabolic Panel Stat D Dimer Stat Troponin I Stat 02/27/19 20:05 EKG-12 Lead Routine Discontinued Medications Hydrocodone Bitart/Acetaminophen (Vicodin Prepack) 1 bottle MISC SEEINSTR ONE Stop: 02/27/19 21:24 Last Admin: 02/27/19 21:42 Dose: 1 bottle Documented by: REGINA Hydromorphone HCl (Dilaudid) 0.5 mg IV NOW ONE Stop: 02/27/19 19:39 Last Admin: 02/27/19 20:13 Dose: 0.5 mg Documented by: BETH Sodium Chloride (Normal Saline 0.9%) 1,000 mls @ 1,000 mls/hr IV BOLUS ONE Stop: 02/27/19 21:28 Last Infusion: 02/27/19 21:55 Dose: 0 mls/hr Documented by: Admin: 02/27/19 20:25 Dose: 1,000 mls/hr Documented by: BETH Lidocaine (Lidoderm) 1 each TOP NOW ONE Stop: 02/27/19 21:24 Last Admin: 02/27/19 21:42 Dose: 1 each Documented by: REGINA Ondansetron HCl (Zofran) 4 mg IV NOW ONE Stop: 02/27/19 19:39 Last Admin: 02/27/19 20:13 Dose: 4 mg Documented by: BETH Ondansetron HCl (Zofran Odt Prepack) 1 bottle MISC SEEINSTR ONE Stop: 02/27/19 21:24 Last Admin: 02/27/19 21:42 Dose: 1 bottle Documented by: REGINA Reevaluation(s) Reevaluation #1: near complete resolution of symptoms by time of discharge. Vital Signs Vital signs: Vital Signs - 8 hr 02/27/19 19:14 02/27/19 20:09 02/27/19 21:04 Temperature 98.4 F Pulse Rate 116 H 111 H 111 H Respiratory Rate 22 18 18 Blood Pressure 128/81 Blood Pressure [Left Arm] 118/65 98/59 L Pulse Oximetry 99 98 98 02/27/19 21:55 Temperature Pulse Rate 106 H Respiratory Rate Blood Pressure 103/67 Blood Pressure [Left Arm] Pulse Oximetry 98 MDM - SOB/Dyspnea Lab Data Result diagrams: 02/27/19 20:00 02/27/19 20:00 Labs: Lab Results 02/27/19 02/27/19 02/27/19 Range/Units 20:00 20:00 20:00 WBC 10.4 (4.5-11.0) X10^3/uL RBC 4.41 (4.0-5.2) X10^6/uL Hgb 12.9 (12.0-16.0) g/dL Hct 37.9 (36-46) % MCV 86.1 (80-100) fL MCH 29.4 (26-34) PG MCHC 34.1 (30-36) % RDW 13.6 (11.6-14.8) % Plt Count 238 (150-400) X10^3/uL Neut % (Auto) 69.0 (50-75) % Lymph % (Auto) 25.7 (25-40) % [place] % (Auto) 3.1 (3-14) % Eos % (Auto) 1.4 L (2-4) % Baso % (Auto) 0.8 (0-2) % Neut # (Auto) 7200 H (2857-1379) /uL Lymph # (Auto) 2700 (8423-2413) /uL [place] # (Auto) 300 (0-900) /uL Eos # (Auto) 100 (0-450) /uL Baso # (Auto) 100 (0-100) /uL D-Dimer < 200 (<230) ng/mL Sodium 139 (137-145) mmol/L Potassium 3.7 (3.4-5.1) mmol/L Chloride 101 (98-107) mmol/L Carbon Dioxide 29 (22-32) mmol/L BUN 10 (7-17) mg/dL Creatinine 0.60 (0.52-1.04) mg/dL Estimated GFR > 60.0 (>60) mL/min BUN/Creatinine Ratio 16.7 (6-22) Glucose 178 H (70-100) mg/dL Calcium 9.5 (8.4-10.2) mg/dL Total Bilirubin 0.3 (0.2-1.3) mg/dL AST 29 (14-36) IU/L ALT 39 H (<35) IU/L Alkaline Phosphatase 68 (38-126) U/L Troponin I < 0.012 (0.01-0.034) ng/mL Total Protein 7.5 (6.3-8.2) g/dL Albumin 4.3 (3.5-5.0) g/dL Globulin 3.2 (1.7-4.1) g/dL Albumin/Globulin Ratio 1.3 (1.0-2.8) Imaging Data CT scan - chest: Radiologist's impression: [address] [address] [address] Scan Report Signed Patient: Muna Swift [facility]#: [id number] : 1990Acct:[id number] Age/Sex: 28 / FDate of Service: 02/27/19 Loc: ED Accession Number: [id number] Procedure: CT angio chest PE protocol Ordering Provider: Valentin Handy D.O. PROCEDURE: CT ANGIO CHEST PE PROTOCOL INDICATIONS: severe pain / SOB, multiple hospitalizations, smoker TECHNIQUE: After the administration of intravenous contrast, 2 mm thick sections acquired from the pulmonary apices to the posterior costophrenic angles. 3-dimensional maximum intensity projection (MIP) coronal and sagittal reformats were then acquired through the thorax. For radiation dose reduction, the following was used: automated exposure control, adjustment of mA and/or kV according to patient size. COMPARISON: [facility], CT, CT ABDOMEN PELVIS W CON, 02/27/2019, 20:27. FINDINGS: Image quality: Excellent. Pulmonary arteries: Pulmonary arteries are normal in size. There is suboptimal contrast opacification of the pulmonary arteries mildly limiting evaluation beyond the level of the lobar pulmonary arteries. Evaluation of segmental and subsegmental branches is nondiagnostic. Lungs and pleura: There is mild dependent atelectasis. No focal consolidation. No pleural effusions or pneumothorax. Central and peripheral airways are patent. Mediastinum: Heart size is normal, without pericardial effusion. No mediastinal or hilar adenopathy. There is a small amount of residual thymus in the anterior mediastinum. Thoracic aorta is normal in caliber and enhancement. Esophagus is normal in caliber, without hiatal hernia. Bones and chest wall: No suspicious bony lesions. Ribs and thoracic spine appear intact throughout. Thyroid gland demonstrates no discrete nodules. No axillary or supraclavicular adenopathy. Abdomen: Visualized upper abdomen demonstrates hypoattenuation of the liver consistent with fatty infiltration. IMPRESSION: 1. Markedly limited evaluation for pulmonary embolism due to suboptimal contrast opacification. No central pulmonary embolism is demonstrated within the main or lobar pulmonary arteries. There is nondiagnostic opacification of segmental and subsegmental branches. 2. No acute airspace consolidation in the lungs. Dictated by: Edgar Mccollum M.D. on 02/27/2019 at 21:01 Approved by: Edgar Mccollum M.D. on 02/27/2019 at 21:06 CT scan - abdomen: Radiologist's impression: [address] [address] [address] Scan Report Signed Patient: Muna Swift [facility]#: [id number] : 1990Acct:[id number] Age/Sex: 28 / FDate of Service: 02/27/19 Loc: ED Accession Number: [id number] Procedure: CT abdomen pelvis w con Ordering Provider: Valentin Handy D.O. PROCEDURE: CT ABDOMEN PELVIS W CON INDICATIONS: severe left upper quadrant abdominal pain TECHNIQUE: After the administration of intravenous contrast, 5 mm thick sections acquired from the diaphragm to the symphysis. 5 mm coronal and sagittal reformats were acquired. For radiation dose reduction, the following was used: automated exposure control, adjustment of mA and/or kV according to patient size. COMPARISON: [facility], CT, CT ABDOMEN PELVIS W CON, 02/20/2019, 18:41. FINDINGS: Image quality: Excellent. ABDOMEN: Lung bases: There is minimal dependent atelectasis. Heart size is normal. Solid organs: There is diffuse hypoattenuation of the liver consistent with fatty infiltration. The gallbladder is surgically absent. Biliary system is non- dilated. Pancreas enhances normally. No peripancreatic fat stranding or fluid collections. No pancreatic duct dilatation. The spleen is normal in size. No adrenal nodules. Kidneys demonstrate no hydronephrosis. Peritoneum and bowel: Bowel loops demonstrate normal wall thickness and caliber. The appendix is not discretely identified and likely surgically absent. No free fluid or air. Nodes and vessels: No retroperitoneal or mesenteric adenopathy by size criteria. Aorta and inferior vena cava are normal in size. Miscellaneous: No ventral hernias. PELVIS: Genitourinary: Bladder wall thickness is normal. The uterus is surgically absent. There is a small fat-containing oval lesion measuring up to 1.2 cm posterior to the bladder likely representing fat necrosis. Miscellaneous: No inguinal hernias or adenopathy. Bones: No suspicious bony lesions. Visualized ribs appear intact. No vertebral body compression fractures. IMPRESSION: 1. No definite acute intra-abdominal abnormality to correlate with patient's pain symptoms. 2. Hepatic steatosis redemonstrated. Dictated by: Edgar Mccollum M.D. on 02/27/2019 at 21:06 Approved by: Edgar Mccollum M.D. on 02/27/2019 at 21:10 [facility] Narrative Medical decision making narrative: Multiple etiologies for patient's symptoms considered including: [Costochondritis versus chest wall pain versus pulmonary embolism versus other] Patient's symptoms improved or duration of stay with above-stated therapies. Findings and discharge diagnosis discussed with patient/family followed by verbalization of understanding Return precautions discussed with patient/family whom verbalize understanding. Discharge Plan Departure Patient Disposition: Home Clinical Impression: Acute chest wall pain Discharge Date/Time: 02/27/19 21:56 Instructions: DI for Atypical Chest Pain Activity Restrictions/Additional Instructions: *You have been diagnosed with [chest wall pain] *What to do: *Take medications as directed: Your prescriptions have been electronically transmitted to the [facility] in [place] at your request *Follow up with your primary care provider in 2-3 days, call for an appointment. Let them know you were seen in the Emergency Department and that we ask that you be seen in follow up *Return to ER if you should have any new, worsening or concerning symptoms Prescriptions: New lidocaine [Lidoderm] 5 % adhesive patch,medicated 1 patch TOP DAILY Qty: 15 RF: 0 ondansetron 4 mg tablet,disintegrating 4 mg PO TID-QID PRN (Reason: nausea and vomiting) Qty: 10 RF: 0 ketorolac 10 mg tablet 10 mg PO Q6H PRN (Reason: pain) Qty: 14 RF: 0 No Action lamotrigine 100 mg tablet 200 mg PO BEDTIME RF: 0 bupropion HCl 300 mg tablet extended release 24 hr 300 mg PO DAILY RF: 0 meloxicam 7.5 mg tablet 7.5 mg PO BID RF: 0 Calcium Tablet 1 tab PO BID RF: 0 Fish Oil 1 cap PO TID RF: 0 iron 1 tab PO DAILY RF: 0 omeprazole 20 mg capsule,delayed release(DR/EC) 20 mg PO DAILY RF: 0 gabapentin 600 mg Tablet 600 mg PO TID RF: 0 cyclobenzaprine 5 mg Tablet 5 mg PO BEDTIME PRN (Reason: muscle spasms) RF: 0 acetaminophen [Tylenol Extra Strength] 500 mg Tablet 1,000 mg PO Q6H PRN (Reason: Pain (Scale Score 4-6)) RF: 0 ibuprofen 600 mg Tablet 600 mg PO QID PRN (Reason: Pain (Scale Score 4-6)) RF: 0 sitagliptin 100 mg tablet 100 mg PO QPM RF: 0 tizanidine 2 mg Tablet 2 mg PO TID RF: 0 Referrals: Belen Aguilar PA-C [Primary Care Provider] - Stand Alone Forms: Work Release Note
[2019-02-27 20:09] VITALS: BP 118/65; PULSE 111; RESP 18; O2SAT 98
[2019-02-27 20:10] LABS: Add Manual Diff / Slide Review NO; Basophils Absolute Auto 100 /uL (0-100); Basophils Percent Auto 0.8 % (0-2); Eosinophils Absolute Auto 100 /uL (0-450); Eosinophils Percent Auto 1.4 % (2-4); Hematocrit 37.9 % (36-46); Hemoglobin 12.9 g/dL (12.0-16.0); Lymphocytes Absolute Auto 2700 /uL (1100-4500); Lymphocytes Percent Auto 25.7 % (25-40); Mean Corpuscular HGB Conc 34.1 % (30-36); Mean Corpuscular Hemoglobin 29.4 PG (26-34); Mean Corpuscular Volume 86.1 fL (80-100); Monocytes Absolute Auto 300 /uL (0-900); Monocytes Percent Auto 3.1 % (3-14); Neutrophils Absolute Auto 7200 /uL (1500-7000); Platelet Count 238 X10^3/uL (150-400); Red Blood Cell Count 4.41 X10^6/uL (4.0-5.2); Red Cell Distribution Width 13.6 % (11.6-14.8); White Blood Cell Count 10.4 X10^3/uL (4.5-11.0)
[2019-02-27] MEDS: HYDROMORPHONE 0.5 MG INJ IV (20:13)
[2019-02-27] MEDS: ONDANSETRON 4 MG/2 ML INJ IV (20:13)
[2019-02-27] MEDS: SODIUM CHLORIDE 0.9% 1,000 ML 1000 ML IV (20:25)
[2019-02-27 20:26] LABS: D Dimer < 200 ng/mL (<230)
[2019-02-27 20:28] LABS: Alanine Aminotransferase 39 IU/L (<35); Albumin 4.3 g/dL (3.5-5.0); Albumin Globulin Ratio 1.3 (1.0-2.8); Alkaline Phosphatase 68 U/L (38-126); Aspartate Aminotransferase 29 IU/L (14-36); BUN Creatinine Ratio 16.7 (6-22); Bilirubin Total 0.3 mg/dL (0.2-1.3); Blood Urea Nitrogen 10 mg/dL (7-17); Calcium 9.5 mg/dL (8.4-10.2); Carbon Dioxide 29 mmol/L (22-32); Chloride 101 mmol/L (98-107); Estimated Glomerular Filt Rate > 60.0 mL/min (>60); Globulin 3.2 g/dL (1.7-4.1); Glucose 178 mg/dL (70-100); HEMOLYSIS < 15 (0-50); Potassium 3.7 mmol/L (3.4-5.1); Sodium 139 mmol/L (137-145); Total Protein 7.5 g/dL (6.3-8.2)
[2019-02-27 20:40] LABS: Troponin I < 0.012 ng/mL (0.01-0.034)
[2019-02-27 21:04] VITALS: BP 98/59; PULSE 111; RESP 18; O2SAT 98
[2019-02-27] MEDS: LIDOCAINE PATCH 1 EACH ADH..PATCH TOP (21:42)
[2019-02-27] MEDS: HYDROCODONE/ACET 5/325 PREPACK 1 BOTTLE MISC (21:42)
[2019-02-27] MEDS: ONDANSETRON 4 MG ODT PREPACK 1 BOTTLE MISC (21:42)
[2019-02-27 21:55] VITALS: BP 103/67; PULSE 106; O2SAT 98
== END 2019-02-27 21:56 | disposition home or self-care (01) ==
PROVIDERS: Emergency Provider Emergency Medicine; PCP Physician Assistant
DX: R07.89 Other chest pain (principal); R05 Cough; R10.12 Left upper quadrant pain
CPT/HCPCS: 36415; 71045; 71275; 74177; 80053; 84484; 85025; 85379; 93005; 96361; 96374; 96375; 99283; 99285; J1170; J2405

== ENCOUNTER 2019-06-18 10:59 | Emergency (ER) | payer OTHER, MEDICAID, SELFPAY ==
[2019-06-18 11:10] VITALS: BP 133/64; PULSE 97; RESP 22; TEMP 36.6; O2SAT 97; BMI 37.4
--- NOTE | 2019-06-18 11:35 | DI.RAD.S_ITS ---
PROCEDURE: XR CHEST 2V INDICATIONS: cough, sob TECHNIQUE: 2 views of the chest were acquired. COMPARISON: [facility], CR, XR CHEST 1V, 02/27/2019, 19:28. FINDINGS: Surgical changes and devices: None. Lungs and pleura: Lungs are clear. No pleural effusions or pneumothorax. Mediastinum: Mediastinal contours are normal. Heart size is normal. Bones and chest wall: No suspicious bony abnormalities. Soft tissues appear unremarkable. IMPRESSION: No acute cardiopulmonary findings. Dictated by: Kori Rojas M.D. on 06/18/2019 at 11:14 Approved by: Kori Rojas M.D. on 06/18/2019 at 11:15
--- NOTE | 2019-06-18 11:55 | ED.URI ---
HPI - URI/Sore Throat <Jenna Bear, MEDICAL OFFICE WORKER-BC - Last Filed: 06/18/19 14:59> General Chief Complaint: Upper Respiratory Symptoms Stated Complaint: cold/ fever sob/ cough sharp pain Time Seen by Provider: 06/18/19 11:16 Source: patient Mode of arrival: Family Vehicle Limitations: no limitations History of Present Illness HPI Narrative: The patient is a 29-year-old female current smoker with history of chronic neck pain who presents with a chief complaint of and congestion for the past 2 days. She denies any international travel. She denies any direct exposure to anybody with Coban 19. Her daughter does go to an elementary school in [place], where a teacher's spouse was in isolation to rule out copious 19. She complains of muscle aches chills, lower back pain. She took Motrin at 6:00 a.m. and Tylenol at 9:00 a.m.. She does complain of subjective fevers, but did not take her temperature. She also complains of midepigastric pain, which she states can be chronic for her as she has abdominal pain that ?moves around.She states that she does not have any urinary symptoms such as dysuria urgency or frequency. Related Data Home Medications Medication Instructions Recorded Confirmed cyclobenzaprine 5 mg PO BEDTIME PRN 09/20/18 02/14/19 gabapentin 600 mg PO TID 09/20/18 02/14/19 acetaminophen [Tylenol Extra 1,000 mg PO Q6H PRN 10/14/18 02/14/19 Strength] ibuprofen 600 mg PO QID PRN 10/14/18 02/14/19 sitagliptin 100 mg PO QPM 10/26/18 02/14/19 tizanidine 2 mg PO TID 10/26/18 02/14/19 Calcium Tablet 1 tab PO BID 02/14/19 02/14/19 Fish Oil 1 cap PO TID 02/14/19 02/14/19 bupropion HCl 300 mg PO DAILY 02/14/19 02/14/19 iron 1 tab PO DAILY 02/14/19 02/14/19 lamotrigine 200 mg PO BEDTIME 02/14/19 02/14/19 meloxicam 7.5 mg PO BID 02/14/19 02/14/19 omeprazole 20 mg PO DAILY 02/14/19 02/14/19 Previous Rx's Medication Instructions Recorded ketorolac 10 mg PO Q6H PRN #14 tab 02/27/19 lidocaine [Lidoderm] 1 patch TOP DAILY #15 each 02/27/19 ondansetron 4 mg PO TID-QID PRN #10 tab 02/27/19 cyclobenzaprine 10 mg PO TID PRN #20 tab 06/18/19 ketorolac 10 mg PO TID PRN #15 tab 06/18/19 ondansetron 4 mg PO Q6H PRN #20 tab 06/18/19 Allergies Allergy/AdvReac Type Severity Reaction Status Date / Time diphenhydramine Allergy Severe Anaphylaxis Verified 06/18/19 12:34 amoxicillin Allergy Intermediate Rash Verified 06/18/19 12:34 metformin Allergy Intermediate Rash Verified 06/18/19 12:34 Penicillins Allergy Intermediate Verified 06/18/19 12:34 Sulfa (Sulfonamide Allergy Intermediate Rash Verified 06/18/19 12:34 Antibiotics) Review of Systems <SUKHWINDER Rubio - Last Filed: 06/18/19 14:59> Review of Systems Narrative: GENERAL: See HPI HEENT: Denies sinus pain, ear pain, sore throat, difficulty swallowing, dizziness. RESPIRATORY: See HPI CARDIOVASCULAR: Denies chest pain, palpitations, orthopnea, edema, GASTROINTESTINAL: See HPI : Denies dysuria, frequency, incontinence, hematuria, urinary retention. MUSCULOSKELETAL: denies weakness, joint pain, or bony pain SKIN: Denies rash, skin lesions, or other NEUROLOGIC: Denies weakness, headache, numbness, change in speech, confusion, seizures, incoordination. PSYCHIATRIC: No concerning psychosocial issues. 12 point review of systems is negative except for those stated above Patient History <SUKHWINDER Rubio - Last Filed: 06/18/19 14:59> Medical History Asthma (Acute) Benign tumor of groin (Acute) Diabetes (Acute) Multiple sclerosis (Acute) Obesity (Acute) Surgical History H/O hernia repair (Acute) H/O: hysterectomy (Acute) History of appendectomy (Acute) History of tonsillectomy (Acute) Hx of cholecystectomy (Acute) Social History household members: spouse and children Smoking Status: Current every day smoker alcohol intake: current Smoking Status: Current every day smoker tobacco type: cigarettes alcohol intake frequency: 0-2 drinks per day Substance Use Type: does not use Exam <SUKHWINDER Rubio - Last Filed: 06/18/19 14:59> Narrative Exam Narrative: GENERAL: This is a well-nourished, well-developed patient, lying on stretcher appears uncomfortable HEAD: Atraumatic. Normocephalic. No temporal or scalp tenderness. EYES: Pupils equal round and reactive. Extraocular motions intact. No scleral icterus. No injection or drainage. ENT: Nose without bleeding, purulent drainage or septal hematoma. Throat without erythema, tonsillar hypertrophy or exudate. Uvula midline. Airway patent. NECK: Trachea midline. No JVD or lymphadenopathy. Supple, nontender, no meningeal signs. CARDIOVASCULAR: Regular rate and rhythm without murmurs, gallops, or rubs. RESPIRATORY: Clear to auscultation. Breath sounds equal bilaterally. No wheezes, rales, or rhonchi. Occasional cough. No increased respiratory effort. Speaking full sentences. GASTROINTESTINAL: Abdomen soft, diffusely tender, nondistended. No hepato-splenomegaly, or palpable masses. No guarding. EXTREMITIES: No clubbing, cyanosis, or edema. No joint tenderness, effusion, or edema noted. BACK: Nontender without deformity or crepitance. Pain to lumbar paraspinal muscle palpation bilaterally NEURO: AOx3. SKIN: No rash or erythema on visible skin Initial Vital Signs Initial Vital Signs: Vital Signs Temperature 97.9 F 06/18/19 11:10 Pulse Rate 97 H 06/18/19 11:10 Respiratory Rate 22 06/18/19 11:10 Blood Pressure 133/64 06/18/19 11:10 Pulse Oximetry 97 06/18/19 11:10 <Mirna Valdez MD - Last Filed: 06/18/19 16:22> Initial Vital Signs Initial Vital Signs: Vital Signs Temperature 97.9 F 06/18/19 11:10 Pulse Rate 97 H 06/18/19 11:10 Respiratory Rate 22 06/18/19 11:10 Blood Pressure 133/64 06/18/19 11:10 Pulse Oximetry 97 06/18/19 11:10 Scores <SUKHWINDER Rubio - Last Filed: 06/18/19 14:59> GCS Aries coma scale eye opening: Spontaneous Hermitage coma scale verbal response: Orientated Hermitage coma scale motor response: Obey commands Hermitage coma scale total score: 15 Course <SUKHWINDER Rubio - Last Filed: 06/18/19 14:59> Orders Ordered: ED Orders 06/18/19 11:35 XR chest 2V Stat 06/18/19 11:50 Amylase Stat Complete Blood Count AUTO DIFF Stat Comprehensive Metabolic Panel Stat Lipase Stat 06/18/19 12:19 Respiratory Panel (Film Array) Stat Discontinued Medications Cyclobenzaprine HCl (Flexeril) 10 mg PO NOW ONE Stop: 06/18/19 13:26 Last Admin: 06/18/19 13:34 Dose: 10 mg Documented by: REGINA Sodium Chloride (Normal Saline 0.9%) 1,000 mls @ 1,000 mls/hr IV BOLUS ONE Stop: 06/18/19 12:34 Last Infusion: 06/18/19 13:08 Dose: 0 mls/hr Documented by: Admin: 06/18/19 12:02 Dose: 1,000 mls/hr Documented by: REGINA Ketorolac Tromethamine (Toradol) 30 mg IV NOW ONE Stop: 06/18/19 12:49 Last Admin: 06/18/19 12:57 Dose: 30 mg Documented by: REGINA Ondansetron HCl (Zofran) 4 mg IV NOW ONE Stop: 06/18/19 11:36 Last Admin: 06/18/19 12:01 Dose: 4 mg Documented by: REGINA Vital Signs Vital signs: Vital Signs - 8 hr 06/18/19 11:10 06/18/19 12:00 06/18/19 14:00 Temperature 97.9 F Pulse Rate 97 H 81 Respiratory Rate 22 Blood Pressure 133/64 Blood Pressure [Right Arm] Pulse Oximetry 97 94 88 L 06/18/19 14:25 Temperature Pulse Rate 87 Respiratory Rate 22 Blood Pressure Blood Pressure [Right Arm] 158/63 H Pulse Oximetry 94 <Mirna Valdez MD - Last Filed: 06/18/19 16:22> Orders Ordered: ED Orders 06/18/19 11:35 XR chest 2V Stat 06/18/19 11:50 Amylase Stat Complete Blood Count AUTO DIFF Stat Comprehensive Metabolic Panel Stat Lipase Stat 06/18/19 12:19 Respiratory Panel (Film Array) Stat Discontinued Medications Cyclobenzaprine HCl (Flexeril) 10 mg PO NOW ONE Stop: 06/18/19 13:26 Last Admin: 06/18/19 13:34 Dose: 10 mg Documented by: REGINA Sodium Chloride (Normal Saline 0.9%) 1,000 mls @ 1,000 mls/hr IV BOLUS ONE Stop: 06/18/19 12:34 Last Infusion: 06/18/19 13:08 Dose: 0 mls/hr Documented by: Admin: 06/18/19 12:02 Dose: 1,000 mls/hr Documented by: REGINA Ketorolac Tromethamine (Toradol) 30 mg IV NOW ONE Stop: 06/18/19 12:49 Last Admin: 06/18/19 12:57 Dose: 30 mg Documented by: REGINA Ondansetron HCl (Zofran) 4 mg IV NOW ONE Stop: 06/18/19 11:36 Last Admin: 06/18/19 12:01 Dose: 4 mg Documented by: REGINA Vital Signs Vital signs: Vital Signs - 8 hr 06/18/19 11:10 06/18/19 12:00 06/18/19 14:00 Temperature 97.9 F Pulse Rate 97 H 81 Respiratory Rate 22 Blood Pressure 133/64 Blood Pressure [Right Arm] Pulse Oximetry 97 94 88 L 06/18/19 14:25 Temperature Pulse Rate 87 Respiratory Rate 22 Blood Pressure Blood Pressure [Right Arm] 158/63 H Pulse Oximetry 94 MDM - URI/Sore Throat <SUKHWINDER Rubio - Last Filed: 06/18/19 14:59> Lab Data Result diagrams: 06/18/19 11:50 06/18/19 11:50 Labs: Lab Results 06/18/19 06/18/19 06/18/19 Range/Units 11:50 11:50 12:19 WBC 9.8 (4.5-11.0) X10^3/uL RBC 5.02 (4.0-5.2) X10^6/uL Hgb 14.6 (12.0-16.0) g/dL Hct 42.5 (36-46) % MCV 84.5 (80-100) fL MCH 29.0 (26-34) PG MCHC 34.3 (30-36) % RDW 14.3 (11.6-14.8) % Plt Count 212 (150-400) X10^3/uL Neut % (Auto) 71.1 (50-75) % Lymph % (Auto) 23.7 L (25-40) % Summers % (Auto) 3.0 (3-14) % Eos % (Auto) 1.5 L (2-4) % Baso % (Auto) 0.7 (0-2) % Neut # (Auto) 7000 (5424-6719) /uL Lymph # (Auto) 2300 (9586-5837) /uL Summers # (Auto) 300 (0-900) /uL Eos # (Auto) 100 (0-450) /uL Baso # (Auto) 100 (0-100) /uL Sodium 141 (137-145) mmol/L Potassium 4.0 (3.4-5.1) mmol/L Chloride 107 (98-107) mmol/L Carbon Dioxide 25 (22-32) mmol/L BUN 9 (7-17) mg/dL Creatinine 0.50 L (0.52-1.04) mg/dL Estimated GFR > 60.0 (>60) mL/min BUN/Creatinine Ratio 18.0 (6-22) Glucose 131 H (70-100) mg/dL Calcium 10.0 (8.4-10.2) mg/dL Total Bilirubin 0.4 (0.2-1.3) mg/dL AST 25 (14-36) IU/L ALT 36 H (<35) IU/L Alkaline Phosphatase 79 (38-126) U/L Total Protein 8.3 H (6.3-8.2) g/dL Albumin 4.7 (3.5-5.0) g/dL Globulin 3.6 (1.7-4.1) g/dL Albumin/Globulin Ratio 1.3 (1.0-2.8) Amylase 50 (30-110) U/L Lipase 178 (23-300) U/L Chlamy pneumoniae PCR Not detected (Not Detect) Adenovirus (PCR) Not detected (Not Detect) B.parapertussis DNA PCR Not detected (Not Detect) Coronavirus OC43 (PCR) Not detected (Not Detect) Coronavirus HKU1 (PCR) Not detected (Not Detect) Coronavirus 229E (PCR) Not detected (Not Detect) Coronavirus NL63 (PCR) Not detected (Not Detect) Human Metapneumovir PCR Not detected (Not Detect) Influenza Type A (PCR) Not detected (Not Detect) Influenza Type B (PCR) Not detected (Not Detect) M. pneumoniae (PCR) Not detected (Not Detect) Parainfluenza 1 (PCR) Not detected (Not Detect) Parainfluenza 2 (PCR) Not detected (Not Detect) Parainfluenza 3 (PCR) Not detected (Not Detect) Parainfluenza 4 (PCR) Not detected (Not Detect) RSV (PCR) Not detected (Not Detect) Entero/Rhino (PCR) Not detected (Not Detect) Urine Dip Bedside Urine Glucose Negative Bedside Urine Bilirubin - Negative Bedside Urine Ketone - Negative Urine Specific Balfour 1.010 Bedside Urine Occult Blood - Negative Bedside Urine pH 7.0 Bedside Urine Protein - Negative Bedside Urine Urobilinogen - Negative Bedside Urine Nitrite - Negative Bedside Urine Leukocytes - Negative Esterase Imaging Data Chest x-ray: Radiologist's Impression: [address] [place] [id number] XRay Report Signed Patient: Muna Swift MMR#: [id number] : 1990Acct:[id number] Age/Sex: 29 / FDate of Service: 06/18/19 Loc: ED Accession Number: [id number] Procedure: XR chest 2V Ordering Provider: Jenna Bear PROCEDURE: XR CHEST 2V INDICATIONS: cough, sob TECHNIQUE: 2 views of the chest were acquired. COMPARISON: [facility], JULISSA, XR CHEST 1V, 02/27/2019, 19:28. FINDINGS: Surgical changes and devices: None. Lungs and pleura: Lungs are clear. No pleural effusions or pneumothorax. Mediastinum: Mediastinal contours are normal. Heart size is normal. Bones and chest wall: No suspicious bony abnormalities. Soft tissues appear unremarkable. IMPRESSION: No acute cardiopulmonary findings. Dictated by: Kori Rojas M.D. on 06/18/2019 at 11:14 Approved by: Kori Rojas M.D. on 06/18/2019 at 11:15 MDM Narrative Medical decision making narrative: The patient is a 29-year-old male who presents with a chief complaint of cough cold and congestion. She also has muscle aches and chills. Nausea no vomiting. She has no overall benign exam. Her labs are benign. She is able to take oral fluids. Urinalysis shows no sign of infection. Chest x-ray is clear. The patient felt much improved after Zofran, Toradol and cyclobenzaprine. Discussed at length not combining Toradol with any other anti-inflammatories, that Flexeril can be sedating, rest and push fluids. Encouraged follow-up with primary care provider especially if worsening or no improvement. Discussed coming back to ER for acute concerns. Patient has no questions or concerns upon discharge and states understanding of return precautions as well as follow-up care. <Mirna Valdez MD - Last Filed: 06/18/19 16:22> Lab Data Labs: Lab Results 06/18/19 06/18/19 06/18/19 Range/Units 11:50 11:50 12:19 WBC 9.8 (4.5-11.0) X10^3/uL RBC 5.02 (4.0-5.2) X10^6/uL Hgb 14.6 (12.0-16.0) g/dL Hct 42.5 (36-46) % MCV 84.5 (80-100) fL MCH 29.0 (26-34) PG MCHC 34.3 (30-36) % RDW 14.3 (11.6-14.8) % Plt Count 212 (150-400) X10^3/uL Neut % (Auto) 71.1 (50-75) % Lymph % (Auto) 23.7 L (25-40) % Summers % (Auto) 3.0 (3-14) % Eos % (Auto) 1.5 L (2-4) % Baso % (Auto) 0.7 (0-2) % Neut # (Auto) 7000 (1729-7054) /uL Lymph # (Auto) 2300 (2943-4880) /uL Summers # (Auto) 300 (0-900) /uL Eos # (Auto) 100 (0-450) /uL Baso # (Auto) 100 (0-100) /uL Sodium 141 (137-145) mmol/L Potassium 4.0 (3.4-5.1) mmol/L Chloride 107 (98-107) mmol/L Carbon Dioxide 25 (22-32) mmol/L BUN 9 (7-17) mg/dL Creatinine 0.50 L (0.52-1.04) mg/dL Estimated GFR > 60.0 (>60) mL/min BUN/Creatinine Ratio 18.0 (6-22) Glucose 131 H (70-100) mg/dL Calcium 10.0 (8.4-10.2) mg/dL Total Bilirubin 0.4 (0.2-1.3) mg/dL AST 25 (14-36) IU/L ALT 36 H (<35) IU/L Alkaline Phosphatase 79 (38-126) U/L Total Protein 8.3 H (6.3-8.2) g/dL Albumin 4.7 (3.5-5.0) g/dL Globulin 3.6 (1.7-4.1) g/dL Albumin/Globulin Ratio 1.3 (1.0-2.8) Amylase 50 (30-110) U/L Lipase 178 (23-300) U/L Chlamy pneumoniae PCR Not detected (Not Detect) Adenovirus (PCR) Not detected (Not Detect) B.parapertussis DNA PCR Not detected (Not Detect) Coronavirus OC43 (PCR) Not detected (Not Detect) Coronavirus HKU1 (PCR) Not detected (Not Detect) Coronavirus 229E (PCR) Not detected (Not Detect) Coronavirus NL63 (PCR) Not detected (Not Detect) Human Metapneumovir PCR Not detected (Not Detect) Influenza Type A (PCR) Not detected (Not Detect) Influenza Type B (PCR) Not detected (Not Detect) M. pneumoniae (PCR) Not detected (Not Detect) Parainfluenza 1 (PCR) Not detected (Not Detect) Parainfluenza 2 (PCR) Not detected (Not Detect) Parainfluenza 3 (PCR) Not detected (Not Detect) Parainfluenza 4 (PCR) Not detected (Not Detect) RSV (PCR) Not detected (Not Detect) Entero/Rhino (PCR) Not detected (Not Detect) Urine Dip Bedside Urine Glucose Negative Bedside Urine Bilirubin - Negative Bedside Urine Ketone - Negative Urine Specific Balfour 1.010 Bedside Urine Occult Blood - Negative Bedside Urine pH 7.0 Bedside Urine Protein - Negative Bedside Urine Urobilinogen - Negative Bedside Urine Nitrite - Negative Bedside Urine Leukocytes - Negative Esterase Discharge Plan Departure Patient Disposition: Home Clinical Impression: Viral illness, Cough, Nausea Discharge Date/Time: 06/18/19 14:31 Instructions: DI for Cough -- Adult, DI for Viral Upper Respiratory Infection -- Adult, DI for Nausea -- Adult Activity Restrictions/Additional Instructions: Thank you for trusting us with your care today As discussed, your respiratory panel came back negative. Chest x-ray shows no signs of pneumonia. You lab work and urinalysis were also negative. Please follow-up with primary care provider next few days. Please continue [id number] medications. I have sent 3 prescriptions in for you to [facility] in [place]. I have given you a prescription of Toradol. This is an NSAID. Do not combine it with other NSAIDs such as Aleve or ibuprofen. I suggest taking it with some food, as it can irritate your stomach. Please remember that the Flexeril can be sedating Please come back to emergency department for any acute concerns such as inability keep down fluids, severe shortness of breath etcetera Prescriptions: New ketorolac 10 mg tablet 10 mg PO TID PRN (Reason: pain) Qty: 15 RF: 0 ondansetron 4 mg tablet,disintegrating 4 mg PO Q6H PRN (Reason: nausea and vomiting) Qty: 20 RF: 0 cyclobenzaprine 10 mg tablet 10 mg PO TID PRN (Reason: muscle spasm) Qty: 20 RF: 0 No Action lamotrigine 100 mg tablet 200 mg PO BEDTIME RF: 0 bupropion HCl 300 mg tablet extended release 24 hr 300 mg PO DAILY RF: 0 meloxicam 7.5 mg tablet 7.5 mg PO BID RF: 0 Calcium Tablet 1 tab PO BID RF: 0 Fish Oil 1 cap PO TID RF: 0 iron 1 tab PO DAILY RF: 0 omeprazole 20 mg capsule,delayed release(DR/EC) 20 mg PO DAILY RF: 0 gabapentin 600 mg Tablet 600 mg PO TID RF: 0 cyclobenzaprine 5 mg Tablet 5 mg PO BEDTIME PRN (Reason: muscle spasms) RF: 0 acetaminophen [Tylenol Extra Strength] 500 mg Tablet 1,000 mg PO Q6H PRN (Reason: Pain (Scale Score 4-6)) RF: 0 ibuprofen 600 mg Tablet 600 mg PO QID PRN (Reason: Pain (Scale Score 4-6)) RF: 0 sitagliptin 100 mg tablet 100 mg PO QPM RF: 0 tizanidine 2 mg Tablet 2 mg PO TID RF: 0 lidocaine [Lidoderm] 5 % adhesive patch,medicated 1 patch TOP DAILY Qty: 15 RF: 0 ondansetron 4 mg tablet,disintegrating 4 mg PO TID-QID PRN (Reason: nausea and vomiting) Qty: 10 RF: 0 ketorolac 10 mg tablet 10 mg PO Q6H PRN (Reason: pain) Qty: 14 RF: 0 Referrals: Belen Aguilar PA-C [Primary Care Provider] - Stand Alone Forms: Work Release Note
[2019-06-18 12:00] VITALS: PULSE 81; O2SAT 94
[2019-06-18] MEDS: ONDANSETRON 4 MG/2 ML INJ IV (12:01)
[2019-06-18] MEDS: SODIUM CHLORIDE 0.9% 1,000 ML 1000 ML IV (12:02)
[2019-06-18 12:10] LABS: Add Manual Diff / Slide Review NO; Basophils Absolute Auto 100 /uL (0-100); Basophils Percent Auto 0.7 % (0-2); Eosinophils Absolute Auto 100 /uL (0-450); Eosinophils Percent Auto 1.5 % (2-4); Hematocrit 42.5 % (36-46); Hemoglobin 14.6 g/dL (12.0-16.0); Lymphocytes Absolute Auto 2300 /uL (1100-4500); Lymphocytes Percent Auto 23.7 % (25-40); Mean Corpuscular HGB Conc 34.3 % (30-36); Mean Corpuscular Volume 84.5 fL (80-100); Monocytes Absolute Auto 300 /uL (0-900); Neutrophils Absolute Auto 7000 /uL (1500-7000); Neutrophils Percent Auto 71.1 % (50-75); Platelet Count 212 X10^3/uL (150-400); Red Blood Cell Count 5.02 X10^6/uL (4.0-5.2); Red Cell Distribution Width 14.3 % (11.6-14.8); White Blood Cell Count 9.8 X10^3/uL (4.5-11.0)
[2019-06-18 12:23] LABS: Alanine Aminotransferase 36 IU/L (<35); Albumin 4.7 g/dL (3.5-5.0); Albumin Globulin Ratio 1.3 (1.0-2.8); Alkaline Phosphatase 79 U/L (38-126); Amylase 50 U/L (30-110); Aspartate Aminotransferase 25 IU/L (14-36); Bilirubin Total 0.4 mg/dL (0.2-1.3); Blood Urea Nitrogen 9 mg/dL (7-17); Carbon Dioxide 25 mmol/L (22-32); Chloride 107 mmol/L (98-107); Estimated Glomerular Filt Rate > 60.0 mL/min (>60); Globulin 3.6 g/dL (1.7-4.1); Glucose 131 mg/dL (70-100); HEMOLYSIS < 15 (0-50); Lipase 178 U/L (23-300); Sodium 141 mmol/L (137-145); Total Protein 8.3 g/dL (6.3-8.2)
[2019-06-18] MEDS: KETOROLAC 60 MG/2 ML VIAL 30 MG IV (12:57)
[2019-06-18] MEDS: CYCLOBENZAPRINE 10 MG TABLET PO (13:34)
[2019-06-18 13:45] LABS: Adenovirus Not Detected (Not Detect); Bordetella pertussis Not Detected (Not Detect); Chlamydophila pneumoniae Not Detected (Not Detect); Coronavirus 229E Not Detected (Not Detect); Coronavirus HKU1 Not Detected (Not Detect); Coronavirus NL 63 Not Detected (Not Detect); Coronavirus OC43 Not Detected (Not Detect); Human Metapneumovirus Not Detected (Not Detect); Human Rhinovirus/Enterovirus Not Detected (Not Detect); Influenza A Not Detected (Not Detect); Influenza B Not Detected (Not Detect); Mycoplasma pneumoniae Not Detected (Not Detect); Parainfluenza Virus 1 Not Detected (Not Detect); Parainfluenza Virus 2 Not Detected (Not Detect); Parainfluenza Virus 3 Not Detected (Not Detect); Parainfluenza Virus 4 Not Detected (Not Detect); Respiratory Syncytial Virus Not Detected (Not Detect)
[2019-06-18 14:00] VITALS: O2SAT 88
[2019-06-18 14:25] VITALS: BP 158/63; PULSE 87; RESP 22; O2SAT 94
== END 2019-06-18 14:31 | disposition home or self-care (01) ==
PROVIDERS: Emergency Provider Nurse Practitioner Family; PCP Physician Assistant
DX: J06.9 Acute upper respiratory infection, unspecified (principal); R50.9 Fever, unspecified; R11.0 Nausea; R06.02 Shortness of breath
CPT/HCPCS: 36415; 71046; 80053; 81003; 82150; 83690; 85025; 87633; 96361; 96374; 96375; 99284; J1885; J2405

== ENCOUNTER 2022-02-12 15:02 | Emergency (ER) | payer OTHER, SELFPAY ==
[2022-02-12 15:41] VITALS: PULSE 91; O2SAT 96
[2022-02-12 15:45] VITALS: BP 133/60; PULSE 76; RESP 18; TEMP 36.9; O2SAT 97; BMI 37.4
--- NOTE | 2022-02-12 15:45 | DI.CT.S_ITS ---
PROCEDURE: CT ABDOMEN PELVIS W CON INDICATIONS: severe RUQ pain, radiates to back, prior GB surgery TECHNIQUE: After the administration of oral and IV contrast, axial sections were acquired from the lung bases to the pubic symphysis. Coronal and sagittal reformats were performed. For radiation dose reduction, the following was used: automated exposure control, adjustment of mA and/or kV according to patient size. COMPARISON: [facility], CT, CT ABDOMEN PELVIS W CON, 02/27/2019, 20:27. FINDINGS: Image quality: Excellent. Lung bases: Unremarkable. Heart: No significant findings. ABDOMEN: Liver: Hepatic steatosis. Gallbladder: Absent. Biliary ducts: Unremarkable. Pancreas: No peripancreatic fluid collection. 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 Adrenal Glands: Unremarkable. Kidneys and Ureters: No hydronephrosis. Excreted contrast in the ureters. Stomach and Bowel: Stomach, small bowel loops, and colon are unremarkable. Diverticulosis. Post appendectomy. Peritoneum: No abnormal intraperitoneal fluid. No free air. Ventral Wall: No hernia. Midline scar. Abdominal Nodes: No retroperitoneal or mesenteric adenopathy by size criteria. Vessels: Aorta and inferior vena cava are normal in size. PELVIS: Pelvic Organs: Uterus is absent. Bladder: No stones. Pelvic Nodes: No enlarged lymph nodes. Miscellaneous: No inguinal hernias are seen. Bones: No suspicious lesions. IMPRESSION: 1. No acute abnormality demonstrated. No free fluid. 2. Hepatic steatosis. Dictated by: Raheem Metzger M.D. on 02/12/2022 at 15:35 Approved by: Raheem Metzger M.D. on 02/12/2022 at 15:40
--- NOTE | 2022-02-12 15:48 | ED_ITS ---
HPI - Abdominal Pain General Chief Complaint: Abdominal Pain Stated Complaint: rt. side abd. pain/nausea/back pain Time Seen by Provider: 02/12/22 15:10 History of Present Illness HPI narrative: 31-year-old female daily smoker with history of prior small-bowel obstruction, chronic left upper quadrant pain, prior cholecystectomy, hysterectomy and appendectomy presents with a chief complaint of severe right upper quadrant pain since yesterday. She states it came on rather suddenly radiates to her back. She has poor appetite in his vomited 3 times. She denies any obvious palliation but she states motion seems to make it worse. She is had no fever or chills. She denies any chest pain or shortness of breath. She denies runny nose, sore throat or cough. She denies any urinary complaints such as dysuria frequency or urgency and has no vaginal bleeding or discharge. Related Data Home Medications Medication Instructions Recorded Confirmed cyclobenzaprine 5 mg tablet 5 mg PO BEDTIME PRN muscle spasms 09/20/18 02/14/19 gabapentin 600 mg tablet 600 mg PO TID 09/20/18 02/14/19 acetaminophen 500 mg tablet 1,000 mg PO Q6H PRN Pain (Scale 10/14/18 02/14/19 (Tylenol Extra Strength) Score 4-6) ibuprofen 600 mg tablet 600 mg PO QID PRN Pain (Scale 10/14/18 02/14/19 Score 4-6) sitagliptin 100 mg tablet 100 mg PO QPM 10/26/18 02/14/19 tizanidine 2 mg tablet 2 mg PO TID 10/26/18 02/14/19 Calcium Tablet 1 tab PO BID 02/14/19 02/14/19 Fish Oil 1 cap PO TID 02/14/19 02/14/19 bupropion HCl 300 mg 24 hr tablet, 300 mg PO DAILY 02/14/19 02/14/19 extended release iron 1 tab PO DAILY 02/14/19 02/14/19 lamotrigine 100 mg tablet 200 mg PO BEDTIME 02/14/19 02/14/19 meloxicam 7.5 mg tablet 7.5 mg PO BID 02/14/19 02/14/19 omeprazole 20 mg capsule,delayed 20 mg PO DAILY 02/14/19 02/14/19 release Previous Rx's Medication Instructions Recorded ketorolac 10 mg tablet 10 mg PO Q6H PRN pain #14 tabs 02/27/19 lidocaine 5 % topical patch 1 patch topical DAILY #15 ea 02/27/19 (Lidoderm) ondansetron 4 mg disintegrating 4 mg PO TID-QID PRN nausea and 02/27/19 tablet vomiting #10 tabs cyclobenzaprine 10 mg tablet 10 mg PO TID PRN muscle spasm #20 06/18/19 tabs ketorolac 10 mg tablet 10 mg PO TID PRN pain #15 tabs 06/18/19 ondansetron 4 mg disintegrating 4 mg PO Q6H PRN nausea and 06/18/19 tablet vomiting #20 tabs hydrocodone 5 mg-acetaminophen 325 1 tab PO Q4-6H PRN pain #10 tabs 02/12/22 mg tablet ondansetron 4 mg disintegrating 4 mg PO TID-QID PRN nausea and 02/12/22 tablet vomiting #10 tabs Allergies Allergy/AdvReac Type Severity Reaction Status Date / Time diphenhydramine Allergy Severe Anaphylaxis Verified 02/12/22 15:51 amoxicillin Allergy Intermediate Rash Verified 02/12/22 15:51 metformin Allergy Intermediate Rash Verified 02/12/22 15:51 Penicillins Allergy Intermediate Verified 02/12/22 15:51 Sulfa (Sulfonamide Allergy Intermediate Rash Verified 02/12/22 15:51 Antibiotics) Review of Systems Review of Systems Narrative: GENERAL: Denies chills, fatigue, malaise, fever, sweats. HEENT: Denies sinus pain, ear pain, sore throat, difficulty swallowing, dizziness. RESPIRATORY: Denies dyspnea, cough, wheezing, hemoptysis, sputum. CARDIOVASCULAR: Denies chest pain, palpitations, orthopnea, edema, GASTROINTESTINAL: Denies nausea, vomiting, abdominal pain, diarrhea, constipation, melena. : Denies dysuria, frequency, incontinence, hematuria, urinary retention. MUSCULOSKELETAL: denies weakness, joint pain, or bony pain SKIN: Denies rash, skin lesions, or other NEUROLOGIC: Denies weakness, headache, numbness, change in speech, confusion, seizures, incoordination. PSYCHIATRIC: No concerning psychosocial issues. 12 point review of systems is negative except for those stated above Patient History Medical History (Updated 02/12/22 @ 17:37 by Valentin Handy DO) Asthma Benign tumor of groin Diabetes Multiple sclerosis Obesity Surgical History H/O hernia repair H/O: hysterectomy History of appendectomy History of tonsillectomy Hx of cholecystectomy Social History household members: spouse and children Smoking Status: Current every day smoker alcohol intake: current Smoking Status: Current every day smoker tobacco type: cigarettes alcohol intake frequency: 0-2 drinks per day Substance Use Type: does not use Exam Narrative Exam Narrative: GENERAL: [31] year old patient appears stated age. Well-developed patient, in mild distress. Tearful and in pain HEAD: Atraumatic. Normocephalic. EYES: Pupils equal round and reactive. Extraocular motions intact. No scleral icterus. No injection or drainage. ENT: Nose without bleeding, purulent drainage. Throat without erythema, tonsillar hypertrophy or exudate. Airway patent. NECK: Trachea midline. Non tender CARDIOVASCULAR: Regular rate and rhythm without murmurs, gallops, or rubs. RESPIRATORY: Clear to auscultation. Breath sounds equal bilaterally. No wheezes, rales, or rhonchi. GASTROINTESTINAL: Abdomen soft, tender in the right upper quadrant, nondistended. EXTREMITIES: No edema or joint tenderness. BACK: Nontender without deformity or crepitance. No flank tenderness. NEURO: AOx3. SKIN: No rash or erythema of visible areas Initial Vital Signs Initial Vital Signs: Vital Signs Pulse Rate 91 H 02/12/22 15:41 Pulse Oximetry 96 02/12/22 15:41 Course Orders Ordered: ED Orders 02/12/22 15:45 CT abdomen pelvis w con Stat Complete Blood Count AUTO DIFF Stat Comprehensive Metabolic Panel Stat Lactate (Lactic Acid) Stat Lipase Stat Magnesium Stat Discontinued Medications Hydromorphone HCl (Hydromorphone 0.5 Mg Inj) 0.5 mg IV NOW ONE Stop: 02/12/22 15:46 Last Admin: 02/12/22 15:54 Dose: 0.5 mg Documented By: YVONNE Sodium Chloride (Normal Saline 0.9%) 1,000 mls @ 1,000 mls/hr IV BOLUS ONE Stop: 02/12/22 16:44 Last Infusion: 02/12/22 17:12 Dose: 0 mls/hr Documented By: Admin: 02/12/22 15:54 Dose: 1,000 mls/hr Documented By: YVONNE Ondansetron HCl (Ondansetron 4 Mg/2 Ml Inj) 4 mg IV NOW ONE Stop: 02/12/22 15:46 Last Admin: 02/12/22 15:54 Dose: 4 mg Documented By: YVONNE Vital Signs Vital signs: Vital Signs - 8 hr 02/12/22 15:45 02/12/22 15:41 02/12/22 17:11 Temperature 98.4 F Pulse Rate 76 91 H 72 Respiratory Rate 18 Blood Pressure 133/60 Pulse Oximetry 97 96 97 Oxygen Delivery Method Room Air 02/12/22 17:12 02/12/22 17:12 Temperature Pulse Rate 80 Respiratory Rate Blood Pressure 114/55 L Pulse Oximetry 97 Oxygen Delivery Method Room Air MDM - Abdominal Pain Lab Data Result diagrams: 02/12/22 15:45 02/12/22 15:45 Labs: Lab Results 02/12/22 02/12/22 02/12/22 Range/Units 15:45 15:45 15:45 WBC 11.1 H (4.5-11.0) X10^3/uL RBC 5.13 (4.0-5.2) X10^6/uL Hgb 15.0 (12.0-16.0) g/dL Hct 43.4 (36-46) % MCV 84.7 (80-100) fL MCH 29.3 (26-34) PG MCHC 34.6 (30-36) % RDW 14.4 (11.6-14.8) % Plt Count 183 (150-400) X10^3/uL Neut % (Auto) 65.4 (50-75) % Lymph % (Auto) 27.2 (25-40) % [place] % (Auto) 4.1 (3-14) % Eos % (Auto) 1.9 L (2-4) % Baso % (Auto) 1.4 (0-2) % Neut # (Auto) 7200 H (8304-4764) /uL Lymph # (Auto) 3000 (5679-2762) /uL [place] # (Auto) 500 (0-900) /uL Eos # (Auto) 200 (0-450) /uL Baso # (Auto) 200 H (0-100) /uL Sodium 137 (137-145) mmol/L Potassium 4.2 (3.4-5.1) mmol/L Chloride 105 (98-107) mmol/L Carbon Dioxide 23 (22-32) mmol/L BUN 6 L (7-17) mg/dL Creatinine 0.48 L (0.52-1.04) mg/dL Estimated GFR > 60 (>60) mL/min BUN/Creatinine Ratio 12.5 (6-22) Glucose 150 H (70-100) mg/dL Lactate 1.6 (0.7-2.1) mmol/L Calcium 9.5 (8.4-10.2) mg/dL Magnesium 2.0 (1.6-2.3) mg/dL Total Bilirubin 0.4 (0.2-1.3) mg/dL AST 44 H (14-36) IU/L ALT 70 H (<35) IU/L Alkaline Phosphatase 104 (38-126) U/L Total Protein 7.9 (6.3-8.2) g/dL Albumin 4.4 (3.5-5.0) g/dL Globulin 3.5 (1.7-4.1) g/dL Albumin/Globulin Ratio 1.3 (1.0-2.8) Lipase 190 (23-300) U/L Point of care testing: Urine Dip Bedside Urine Glucose Negative Bedside Urine Bilirubin - Negative Bedside Urine Ketone - Negative Urine Specific [place] 1.015 Bedside Urine Occult Blood - Negative Bedside Urine pH 6.5 Bedside Urine Protein - Negative Bedside Urine Urobilinogen +/- 1mg Bedside Urine Nitrite - Negative Bedside Urine Leukocytes - Negative Esterase Imaging Data CT scan - abdomen/pelvis: Radiologist's Impression: Close Abdomen/Pelvis CT (Signed) CallRaheem - 02/12/22 Launch?[address] [address] [address] Scan Report Signed Patient: Muna Swift MR#: [id number] : 1990 Acct:[id number] Age/Sex: 31 / F Date of Service: 02/12/22 Loc: ED Accession Number: [id number] ?? Procedure: CT abdomen pelvis w con Ordering Provider: Valentin Handy D.O. PROCEDURE:? CT ABDOMEN PELVIS W CON ? INDICATIONS:? severe RUQ pain, radiates to back, prior GB surgery ? TECHNIQUE:? After the administration of oral and IV contrast, axial sections were acquired from the lung bases to the pubic symphysis.? Coronal and sagittal reformats were performed.? For radiation dose reduction, the following was used:? automated exposure control, adjustment of mA and/or kV according to patient size. ? COMPARISON:? [facility], CT, CT ABDOMEN PELVIS W CON, 02/27/2019, 20:27. ? FINDINGS:? Image quality:? Excellent.? ? Lung bases:? Unremarkable.? ? Heart:? No significant findings. ? ? ABDOMEN: Liver:? Hepatic steatosis. Gallbladder:? Absent. Biliary ducts:? Unremarkable.? ? Pancreas:? No peripancreatic fluid collection. Spleen:? Spleen is elongated measuring 16 cm in length. Adrenal Glands:? Unremarkable.? ? Kidneys and Ureters:? No hydronephrosis.? Excreted contrast in the ureters. ? Stomach and Bowel:? Stomach, small bowel loops, and colon are unremarkable.? Diverticulosis.? Post appendectomy. Peritoneum:? No abnormal intraperitoneal fluid.? No free air.? ? Ventral Wall: ? No hernia.? Midline scar.? Abdominal Nodes:? No retroperitoneal or mesenteric adenopathy by size criteria.? Vessels:? Aorta and inferior vena cava are normal in size.? ? PELVIS: Pelvic Organs:? Uterus is absent.? ? Bladder:? No stones.? ? Pelvic Nodes: No enlarged lymph nodes.? Miscellaneous: No inguinal hernias are seen. ? ? ? Bones:? No suspicious lesions.? ? IMPRESSION:? 1. No acute abnormality demonstrated.? No free fluid. ? ? 2. Hepatic steatosis. ? Dictated by: Raheem Metzger M.D. on 02/12/2022 at 15:35 ? ? Approved by: Raheem Metzger M.D. on 02/12/2022 at 15:40 ? MDM Narrative Medical decision making narrative: Multiple etiologies for patient's symptoms considered include, but not limited to: [Bowel obstruction versus kidney stone versus diverticulitis versus other Patient's symptoms improved over duration of stay with above-stated therapies. History, physical exam, labs, imaging, and response to therapies have been reassuring. Findings and discharge diagnosis discussed with patient/family followed by verbalization of understanding Return precautions discussed with patient/family whom verbalize understanding. Pain has been well controlled and patient is tolerating oral hydration. Discharge Plan Departure Patient Disposition: Home Clinical Impression: Abdominal pain Instructions: DI for Abdominal Pain-Adult Activity Restrictions/Additional Instructions: *You have been diagnosed with [abdominal pain] * As we discussed your history and physical exam as well as labs and imaging are very reassuring. There is no evidence of any severe diagnoses that would require a specific or immediate intervention. *What to do: *Please continue to take your regular medications as directed. [x ] New medication prescriptions sent to your pharmacy: [[facility] in [place] ] *Please follow up with your primary care provider in 2-3 days, call for an appointment. Let them know you were seen in the Emergency Department and that we ask that you be seen in follow up. We will electronically transmit a record of today's note if your PCP is in our system *Please consider a clear liquid diet for the next 24-48 hours and then slowly advance to regular as tolerated. Also, try to avoid alcohol, nicotine, caffeine, spicy, acidic or fatty foods as this may worsen your symptoms *If you do not have a primary care provider please contact the [facility] Resource line at [phone]. They will ask some questions about your medical history and help get you set up with a doctor in the community. *Return to Emergency Department if you should have any new, worsening or concerning symptoms, such as [fever greater than 101 F, shaking chills, worsening pain, persistent vomiting or other bothersome symptoms] Prescriptions: New hydrocodone-acetaminophen 5-325 mg tablet 1 tab PO Q4-6H PRN (Reason: pain) Qty: 10 0RF ondansetron 4 mg tablet,disintegrating 4 mg PO TID-QID PRN (Reason: nausea and vomiting) Qty: 10 0RF No Action lamotrigine 100 mg tablet 200 mg PO BEDTIME Label Comments: take 2 tablets by mouth at bedtime bupropion HCl 300 mg tablet extended release 24 hr 300 mg PO DAILY Label Comments: take 1 tablet by mouth once daily meloxicam 7.5 mg tablet 7.5 mg PO BID Label Comments: take 1 tablet by mouth twice a day with food or arthritis or pain Calcium Tablet 1 tab PO BID Fish Oil 1 cap PO TID iron 1 tab PO DAILY omeprazole 20 mg capsule,delayed release(DR/EC) 20 mg PO DAILY Label Comments: take 1 capsule by mouth every morning before breakfast ketorolac 10 mg tablet 10 mg PO TID PRN (Reason: pain) Qty: 15 0RF ondansetron 4 mg tablet,disintegrating 4 mg PO Q6H PRN (Reason: nausea and vomiting) Qty: 20 0RF cyclobenzaprine 10 mg tablet 10 mg PO TID PRN (Reason: muscle spasm) Qty: 20 0RF gabapentin 600 mg Tablet 600 mg PO TID cyclobenzaprine 5 mg Tablet 5 mg PO BEDTIME PRN (Reason: muscle spasms) acetaminophen [Tylenol Extra Strength] 500 mg Tablet 1,000 mg PO Q6H PRN (Reason: Pain (Scale Score 4-6)) ibuprofen 600 mg Tablet 600 mg PO QID PRN (Reason: Pain (Scale Score 4-6)) sitagliptin 100 mg tablet 100 mg PO QPM tizanidine 2 mg Tablet 2 mg PO TID lidocaine [Lidoderm] 5 % adhesive patch,medicated 1 patch TOP DAILY Qty: 15 0RF Rx Instructions: leave on most painful area for 12 hrs ondansetron 4 mg tablet,disintegrating 4 mg PO TID-QID PRN (Reason: nausea and vomiting) Qty: 10 0RF ketorolac 10 mg tablet 10 mg PO Q6H PRN (Reason: pain) Qty: 14 0RF Stand Alone Forms: Work Release Note
[2022-02-12] MEDS: SODIUM CHLORIDE 0.9% 1,000 ML 1000 ML IV (15:54)
[2022-02-12] MEDS: HYDROMORPHONE 0.5 MG INJ IV (15:54)
[2022-02-12] MEDS: ONDANSETRON 4 MG/2 ML INJ IV (15:54)
[2022-02-12 15:56] LABS: Add Manual Diff / Slide Review NO; Basophils Absolute Auto 200 /uL (0-100); Basophils Percent Auto 1.4 % (0-2); Eosinophils Absolute Auto 200 /uL (0-450); Eosinophils Percent Auto 1.9 % (2-4); Hematocrit 43.4 % (36-46); Lymphocytes Absolute Auto 3000 /uL (1100-4500); Lymphocytes Percent Auto 27.2 % (25-40); Mean Corpuscular HGB Conc 34.6 % (30-36); Mean Corpuscular Hemoglobin 29.3 PG (26-34); Mean Corpuscular Volume 84.7 fL (80-100); Monocytes Absolute Auto 500 /uL (0-900); Monocytes Percent Auto 4.1 % (3-14); Neutrophils Absolute Auto 7200 /uL (1500-7000); Neutrophils Percent Auto 65.4 % (50-75); Platelet Count 183 X10^3/uL (150-400); Red Blood Cell Count 5.13 X10^6/uL (4.0-5.2); Red Cell Distribution Width 14.4 % (11.6-14.8); White Blood Cell Count 11.1 X10^3/uL (4.5-11.0)
[2022-02-12 16:08] LABS: Alanine Aminotransferase 70 IU/L (<35); Albumin 4.4 g/dL (3.5-5.0); Albumin Globulin Ratio 1.3 (1.0-2.8); Alkaline Phosphatase 104 U/L (38-126); Aspartate Aminotransferase 44 IU/L (14-36); BUN Creatinine Ratio 12.5 (6-22); Bilirubin Total 0.4 mg/dL (0.2-1.3); Blood Urea Nitrogen 6 mg/dL (7-17); Calcium 9.5 mg/dL (8.4-10.2); Carbon Dioxide 23 mmol/L (22-32); Chloride 105 mmol/L (98-107); Estimated Glomerular Filt Rate > 60 mL/min (>60); Globulin 3.5 g/dL (1.7-4.1); Glucose 150 mg/dL (70-100); HEMOLYSIS < 15 (0-50); Lipase 190 U/L (23-300); Potassium 4.2 mmol/L (3.4-5.1); Sodium 137 mmol/L (137-145); Total Protein 7.9 g/dL (6.3-8.2)
[2022-02-12 16:25] LABS: Lactate (Lactic Acid) 1.6 mmol/L (0.7-2.1)
[2022-02-12 17:11] VITALS: PULSE 72; O2SAT 97
[2022-02-12 17:12] VITALS: BP 114/55; PULSE 80; O2SAT 97
== END 2022-02-12 17:48 | disposition home or self-care (01) ==
PROVIDERS: Emergency Provider Emergency Medicine
DX: R10.11 Right upper quadrant pain (principal); R11.2 Nausea with vomiting, unspecified
CPT/HCPCS: 36415; 74177; 80053; 81003; 83605; 83690; 83735; 85025; 96361; 96374; 96375; 99284; J1170; J2405; Q9967

== ENCOUNTER → 2022-02-18 09:31 | Outpatient (CLI) | payer OTHER, SELFPAY ==
[2022-02-18 12:28] LABS: Hemoglobin A1C% w Est Avg Glu 8.6 % (4.0-6.0)
[2022-02-18 13:24] LABS: Creatinine Urine Random 46.4 mg/dL
[2022-02-18 13:27] LABS: Microalbumin Urine Random < 0.6 mg/dL (0-1.6)
== END ==
PROVIDERS: PCP Family Medicine; Referring Provider Family Medicine; Visit Provider Family Medicine
DX: R73.9 Hyperglycemia, unspecified (principal); E11.9 Type 2 diabetes mellitus without complications
CPT/HCPCS: 36415; 82043; 82570; 83036

== ENCOUNTER 2022-02-20 14:52 | Emergency (ER) | payer OTHER, SELFPAY ==
[2022-02-20] VITALS (11 sets, daily range): BP systolic 122–161; BP diastolic 61–68; PULSE 84–106; RESP 17–24; TEMP 36.8; O2SAT 92–99; BMI 36.9
--- NOTE | 2022-02-20 15:09 | ED_ITS ---
HPI - General Adult <Mirna Valdez MD - Last Filed: 02/21/22 08:11> General Chief complaint: Abdominal Pain Stated complaint: ABD pain Time Seen by Provider: 02/20/22 15:09 History of Present Illness HPI narrative: 31-year-old woman with history of diabetes, reflux, bipolar disease, appendectomy, cholecystectomy, hysterectomy for endometritis presents for the 2nd time to the emergency department for severe right upper quadrant abdominal pain. She was initially seen on February 12. CT scan and blood work at that time reassuring. She is instructed follow-up with her primary care physician which she did. Gave her Zofran to help with the nausea. She has continued to have nausea and some emesis ever since. She notes that earlier today the pain dramatically worsened to the point where she was having chills and worsening nausea. It severe in the epigastrium to the right upper quadrant and radiates to the posterior right lung. She has not had fevers, cough, palpitations, headaches. She notes she did have a normal bowel movement yesterday has not noticed any black or bloody stools. She does not note that having a bowel movement influenced her pain in any way. Related Data Home Medications Medication Instructions Recorded Confirmed omeprazole 20 mg capsule,delayed 20 mg PO DAILY 02/14/19 02/18/22 release acetaminophen 325 mg capsule 650 mg PO Q6H PRN 02/18/22 02/18/22 (Tylenol) famotidine 20 mg tablet (Pepcid) 20 mg PO DAILY 02/18/22 02/18/22 Previous Rx's Medication Instructions Recorded glimepiride 2 mg tablet See Rx Instructions .Route 02/18/22 .COMPLEX #90 tabs hydrocodone 5 mg-acetaminophen 325 1 tab PO Q8H PRN pain 10 days #10 02/18/22 mg tablet tabs lithium carbonate 300 mg 300 mg PO DAILY Bipolar #30 tabs 02/18/22 tablet,extended release ondansetron HCl 4 mg tablet 4 mg PO Q8H PRN nausea and 02/18/22 vomiting #60 tabs Allergies Allergy/AdvReac Type Severity Reaction Status Date / Time diphenhydramine Allergy Severe Anaphylaxis Verified 02/18/22 07:30 amoxicillin Allergy Intermediate Rash Verified 02/18/22 07:30 metformin Allergy Intermediate Rash Verified 02/18/22 07:30 Penicillins Allergy Intermediate Verified 02/18/22 07:30 Sulfa (Sulfonamide Allergy Intermediate Rash Verified 02/18/22 07:30 Antibiotics) Review of Systems <Mirna Valdez MD - Last Filed: 02/21/22 08:11> Review of Systems Narrative: Remainder of complete review of systems is otherwise unremarkable except for that included in the HPI. Patient History <Mirna Valdez MD - Last Filed: 02/21/22 08:11> Medical History Allergies (~1999) Anemia (~2012) Anxiety (~2020) Asthma Benign tumor of groin Bipolar 1 disorder (~2004) Carpal tunnel syndrome Chicken pox Chronic back pain Depression (~2004) Diabetes (~2017) Endometriosis (~2014) GERD (gastroesophageal reflux disease) (~2017) Heavy menstrual period (~1999) Hemorrhoid (~2007) History of recurrent ear infection (~2019) History of urinary incontinence (~2017) Kidney stones (~2016) Migraines (~1999) Multiple sclerosis Obesity Ovarian cyst (~2011) Painful menstrual periods (~1999) PTSD (post-traumatic stress disorder) (~2008) Skin sore (~2018) Sleep apnea (~2016) Type 2 diabetes mellitus without complication, with no history of insulin use Surgical History Anesthesia H/O hernia repair (~2014) H/O: hysterectomy (~2014) History of appendectomy (~2012) History of tonsillectomy (~1998) Hx of cholecystectomy (~2013) Status post cholecystectomy Status post hysterectomy Tumor (~2016) Family History Father Diabetes mellitus History of heart disease Stroke Mother Hypertension Mental health problem Sister Mental health problem Grandfather Lung cancer Family/Other Mental health problem Social History household members: spouse and children Smoking Status: Current every day smoker alcohol intake: current Smoking Status: Current every day smoker tobacco type: cigarettes alcohol intake frequency: 0-2 drinks per day Substance Use Type: does not use Exam <Mirna Valdez MD - Last Filed: 02/21/22 08:11> Initial Vital Signs Initial Vital Signs: Vital Signs Pulse Rate 102 H 02/20/22 15:00 Respiratory Rate 18 02/20/22 15:00 Blood Pressure 161/68 H 02/20/22 15:00 Pulse Oximetry 99 02/20/22 15:00 Oxygen Delivery Method 02/20/22 15:00 General: Presents with significant pain in the right upper quadrant but Able to give a complete and coherent history. Well-nourished well-developed HEENT: Moist mucous membranes, normal sclera with reactive pupils, Neck: No JVD, supple Respiratory: Lungs are clear to auscultation, no wheezing no rales no rhonchi. Full and symmetrical air movement Cardiac: Regular rate and rhythm no murmurs no bruits Abdomen: Soft, no flank pain, right upper quadrant/epigastric/right posterior lower lung field tenderness to palpation. There is no rebound or guarding. Skin: Warm and dry, no rashes -particularly in the area of pain Neurologic: Grossly neurologically intact with no obvious asymmetries or abnormalities Extremities: No trauma, well perfused Psych: Cooperative, appropriate insight and affect <Pineda Cleaning MD - Last Filed: 02/20/22 22:47> Initial Vital Signs Initial Vital Signs: Vital Signs Pulse Rate 102 H 02/20/22 15:00 Respiratory Rate 18 02/20/22 15:00 Blood Pressure 161/68 H 02/20/22 15:00 Pulse Oximetry 99 02/20/22 15:00 Oxygen Delivery Method 02/20/22 15:00 Course <Mirna Valdez MD - Last Filed: 02/21/22 08:11> Orders Ordered: Discontinued Medications Hydromorphone HCl (Hydromorphone 0.5 Mg Inj) 0.5 mg IV Q15MIN PRN PRN Reason: Pain, Last Admin: 02/20/22 18:14 Dose: 0.5 mg Documented By: MAVERICK Sodium Chloride (Normal Saline 0.9%) 1,000 mls @ 1,000 mls/hr IV BOLUS ONE Stop: 02/20/22 16:16 Last Infusion: 02/20/22 18:14 Dose: 0 mls/hr Documented By: Admin: 02/20/22 15:50 Dose: 1,000 mls/hr Documented By: AT Ketorolac Tromethamine (Ketorolac 30 Mg/Ml Vial) 15 mg IV NOW ONE Stop: 02/20/22 15:18 Last Admin: 02/20/22 15:51 Dose: 15 mg Documented By: AT Ondansetron HCl (Ondansetron 4 Mg/2 Ml Inj) 4 mg IV NOW ONE Stop: 02/20/22 15:18 Last Admin: 02/20/22 15:51 Dose: 4 mg Documented By: AT Ondansetron HCl (Ondansetron 4 Mg/2 Ml Inj) 4 mg IV NOW ONE Stop: 02/20/22 17:50 Last Admin: 02/20/22 18:14 Dose: 4 mg Documented By: CSD Vital Signs Vital signs: Vital Signs - 8 hr 02/20/22 15:00 02/20/22 15:35 02/20/22 15:36 Temperature 98.2 F Pulse Rate 102 H 106 H Respiratory Rate 18 24 Blood Pressure 161/68 H Pulse Oximetry 99 97 Oxygen Delivery Method Room Air 02/20/22 16:07 02/20/22 16:30 02/20/22 16:30 Temperature Pulse Rate 98 H 102 H Respiratory Rate 18 Blood Pressure 122/61 Pulse Oximetry 96 96 Oxygen Delivery Method Room Air 02/20/22 17:00 02/20/22 17:00 02/20/22 17:30 Temperature Pulse Rate 100 H Respiratory Rate Blood Pressure 124/65 132/64 Pulse Oximetry 96 Oxygen Delivery Method 02/20/22 17:30 02/20/22 18:05 02/20/22 18:30 Temperature Pulse Rate 104 H 94 H 86 Respiratory Rate 20 17 Blood Pressure Pulse Oximetry 97 96 92 Oxygen Delivery Method 02/20/22 19:00 02/20/22 19:30 Temperature Pulse Rate 84 93 H Respiratory Rate 18 19 Blood Pressure Pulse Oximetry 94 94 Oxygen Delivery Method <Pineda Cleaning MD - Last Filed: 02/20/22 22:47> Course Course Narrative: February 20, 2022 at 7:[address] Perez. Patient has significant abdominal surgical history in the past. Has had recent CT scan that was unremarkable. Chad has repeat CT scan for comparison. Those results are pending. Disposition likely discharge home Orders Ordered: Discontinued Medications Hydromorphone HCl (Hydromorphone 0.5 Mg Inj) 0.5 mg IV Q15MIN PRN PRN Reason: Pain, Last Admin: 02/20/22 18:14 Dose: 0.5 mg Documented By: MAVERICK Sodium Chloride (Normal Saline 0.9%) 1,000 mls @ 1,000 mls/hr IV BOLUS ONE Stop: 02/20/22 16:16 Last Infusion: 02/20/22 18:14 Dose: 0 mls/hr Documented By: Admin: 02/20/22 15:50 Dose: 1,000 mls/hr Documented By: AT Ketorolac Tromethamine (Ketorolac 30 Mg/Ml Vial) 15 mg IV NOW ONE Stop: 02/20/22 15:18 Last Admin: 02/20/22 15:51 Dose: 15 mg Documented By: AT Ondansetron HCl (Ondansetron 4 Mg/2 Ml Inj) 4 mg IV NOW ONE Stop: 02/20/22 15:18 Last Admin: 02/20/22 15:51 Dose: 4 mg Documented By: AT Ondansetron HCl (Ondansetron 4 Mg/2 Ml Inj) 4 mg IV NOW ONE Stop: 02/20/22 17:50 Last Admin: 02/20/22 18:14 Dose: 4 mg Documented By: MAVERICK Reevaluation(s) Reevaluation #1: I reviewed results with patient. At this time laboratory studies and imaging are reassuring. She states her family doctor has referred her to a general surgeon but unable to find phone number or make appointment yet. I did tell her I will give referral tonight for her to call tomorrow. Her is driving tonight. Return precautions reviewed with her. She desires discharge home. Time: 19:43 Vital Signs Vital signs: Vital Signs - 8 hr 02/20/22 15:00 02/20/22 15:35 02/20/22 15:36 Temperature 98.2 F Pulse Rate 102 H 106 H Respiratory Rate 18 24 Blood Pressure 161/68 H Pulse Oximetry 99 97 Oxygen Delivery Method Room Air 02/20/22 16:07 02/20/22 16:30 02/20/22 16:30 Temperature Pulse Rate 98 H 102 H Respiratory Rate 18 Blood Pressure 122/61 Pulse Oximetry 96 96 Oxygen Delivery Method Room Air 02/20/22 17:00 02/20/22 17:00 02/20/22 17:30 Temperature Pulse Rate 100 H Respiratory Rate Blood Pressure 124/65 132/64 Pulse Oximetry 96 Oxygen Delivery Method 02/20/22 17:30 02/20/22 18:05 02/20/22 18:30 Temperature Pulse Rate 104 H 94 H 86 Respiratory Rate 20 17 Blood Pressure Pulse Oximetry 97 96 92 Oxygen Delivery Method 02/20/22 19:00 02/20/22 19:30 Temperature Pulse Rate 84 93 H Respiratory Rate 18 19 Blood Pressure Pulse Oximetry 94 94 Oxygen Delivery Method Medical Decision Making <Mirna Valdez MD - Last Filed: 02/21/22 08:11> Lab Data Result diagrams: 02/20/22 15:10 02/20/22 15:10 Labs: Lab Results 02/20/22 02/20/22 02/20/22 Range/Units 15:10 15:10 15:59 WBC 12.2 H (4.5-11.0) X10^3/uL RBC 5.13 (4.0-5.2) X10^6/uL Hgb 15.2 (12.0-16.0) g/dL Hct 43.6 (36-46) % MCV 85.1 (80-100) fL MCH 29.6 (26-34) PG MCHC 34.7 (30-36) % RDW 14.1 (11.6-14.8) % Plt Count 195 (150-400) X10^3/uL Neut % (Auto) 76.0 H (50-75) % Lymph % (Auto) 18.3 L (25-40) % [place] % (Auto) 3.9 (3-14) % Eos % (Auto) 1.3 L (2-4) % Baso % (Auto) 0.5 (0-2) % Neut # (Auto) 9300 H (5724-2637) /uL Lymph # (Auto) 2200 (9948-7631) /uL [place] # (Auto) 500 (0-900) /uL Eos # (Auto) 200 (0-450) /uL Baso # (Auto) 100 (0-100) /uL Sodium 138 (137-145) mmol/L Potassium 4.1 (3.4-5.1) mmol/L Chloride 103 (98-107) mmol/L Carbon Dioxide 21 L (22-32) mmol/L BUN 5 L (7-17) mg/dL Creatinine 0.53 (0.52-1.04) mg/dL Estimated GFR > 60 (>60) mL/min BUN/Creatinine Ratio 9.4 (6-22) Glucose 297 H D (70-100) mg/dL Calcium 9.0 (8.4-10.2) mg/dL Magnesium 2.0 (1.6-2.3) mg/dL Total Bilirubin 0.4 (0.2-1.3) mg/dL AST 45 H (14-36) IU/L ALT 57 H (<35) IU/L Alkaline Phosphatase 98 (38-126) U/L Total Protein 7.8 (6.3-8.2) g/dL Albumin 4.4 (3.5-5.0) g/dL Globulin 3.4 (1.7-4.1) g/dL Albumin/Globulin Ratio 1.3 (1.0-2.8) Lipase 113 (23-300) U/L Urine Color Yellow Urine Appearance Clear Urine pH 6.5 (4.5-8.0) Ur Specific [place] 1.010 (1.000-1.035) Urine Protein Negative (Negative) Urine Glucose (UA) 1+ H (Negative) g/dL Urine Ketones Negative (NEGATIVE) Urine Occult Blood Negative (Negative) Urine Nitrate Negative (Negative) Urine Bilirubin Negative (NEGATIVE) Urine Urobilinogen 0.2 (0.2) E.U./dL Ur Leukocyte Esterase Negative (NEGATIVE) Urine RBC None seen (0-5/HPF) Urine WBC 0-1/hpf (0-5/HPF) Ur Squamous Epith Cells 1-5 /hpf (0-5/HPF) Urine Bacteria Few (2-10) H (None) Ur Culture Indicated? Specimen cultured Urine Dip Bedside Urine Glucose 250 mg/dl Bedside Urine Bilirubin - Negative Bedside Urine Ketone - Negative Urine Specific [place] 1.010 Bedside Urine Occult Blood - Negative Bedside Urine pH 6.0 Bedside Urine Protein - Negative Bedside Urine Urobilinogen - Negative Bedside Urine Nitrite - Negative Bedside Urine Leukocytes - Negative Esterase Point of care testing: Urine Dip Bedside Urine Glucose 250 mg/dl Bedside Urine Bilirubin - Negative Bedside Urine Ketone - Negative Urine Specific [place] 1.010 Bedside Urine Occult Blood - Negative Bedside Urine pH 6.0 Bedside Urine Protein - Negative Bedside Urine Urobilinogen - Negative Bedside Urine Nitrite - Negative Bedside Urine Leukocytes - Negative Esterase Imaging Data Abdominal x-ray: Radiologist's Impression: FINDINGS:? ? Surgical changes and devices:? Surgical clips in right upper quadrant compatible with prior cholecystectomy. ? Bowel:? Bowel gas pattern is nonobstructive.? ? Soft tissues:? No suspicious abdominal calcifications.? Visualized solid organ contours appear normal in size.? ? Bones:? No suspicious bony lesions.? ? IMPRESSION:? Abdomen without acute radiographic abnormalities. ? ? Dictated by: Joao Vaughan M.D. on 02/20/2022 at 15:53 ? ? <Pineda Cleaning MD - Last Filed: 02/20/22 22:47> Differential Diagnosis Differential Diagnosis: Chronic abdominal pain. Bowel obstruction. Colitis. Diverticulitis. Lab Data Labs: Lab Results 02/20/22 02/20/22 02/20/22 Range/Units 15:10 15:10 15:59 WBC 12.2 H (4.5-11.0) X10^3/uL RBC 5.13 (4.0-5.2) X10^6/uL Hgb 15.2 (12.0-16.0) g/dL Hct 43.6 (36-46) % MCV 85.1 (80-100) fL MCH 29.6 (26-34) PG MCHC 34.7 (30-36) % RDW 14.1 (11.6-14.8) % Plt Count 195 (150-400) X10^3/uL Neut % (Auto) 76.0 H (50-75) % Lymph % (Auto) 18.3 L (25-40) % [place] % (Auto) 3.9 (3-14) % Eos % (Auto) 1.3 L (2-4) % Baso % (Auto) 0.5 (0-2) % Neut # (Auto) 9300 H (8906-1350) /uL Lymph # (Auto) 2200 (9701-2598) /uL [place] # (Auto) 500 (0-900) /uL Eos # (Auto) 200 (0-450) /uL Baso # (Auto) 100 (0-100) /uL Sodium 138 (137-145) mmol/L Potassium 4.1 (3.4-5.1) mmol/L Chloride 103 (98-107) mmol/L Carbon Dioxide 21 L (22-32) mmol/L BUN 5 L (7-17) mg/dL Creatinine 0.53 (0.52-1.04) mg/dL Estimated GFR > 60 (>60) mL/min BUN/Creatinine Ratio 9.4 (6-22) Glucose 297 H D (70-100) mg/dL Calcium 9.0 (8.4-10.2) mg/dL Magnesium 2.0 (1.6-2.3) mg/dL Total Bilirubin 0.4 (0.2-1.3) mg/dL AST 45 H (14-36) IU/L ALT 57 H (<35) IU/L Alkaline Phosphatase 98 (38-126) U/L Total Protein 7.8 (6.3-8.2) g/dL Albumin 4.4 (3.5-5.0) g/dL Globulin 3.4 (1.7-4.1) g/dL Albumin/Globulin Ratio 1.3 (1.0-2.8) Lipase 113 (23-300) U/L Urine Color Yellow Urine Appearance Clear Urine pH 6.5 (4.5-8.0) Ur Specific [place] 1.010 (1.000-1.035) Urine Protein Negative (Negative) Urine Glucose (UA) 1+ H (Negative) g/dL Urine Ketones Negative (NEGATIVE) Urine Occult Blood Negative (Negative) Urine Nitrate Negative (Negative) Urine Bilirubin Negative (NEGATIVE) Urine Urobilinogen 0.2 (0.2) E.U./dL Ur Leukocyte Esterase Negative (NEGATIVE) Urine RBC None seen (0-5/HPF) Urine WBC 0-1/hpf (0-5/HPF) Ur Squamous Epith Cells 1-5 /hpf (0-5/HPF) Urine Bacteria Few (2-10) H (None) Ur Culture Indicated? Specimen cultured Urine Dip Bedside Urine Glucose 250 mg/dl Bedside Urine Bilirubin - Negative Bedside Urine Ketone - Negative Urine Specific [place] 1.010 Bedside Urine Occult Blood - Negative Bedside Urine pH 6.0 Bedside Urine Protein - Negative Bedside Urine Urobilinogen - Negative Bedside Urine Nitrite - Negative Bedside Urine Leukocytes - Negative Esterase Point of care testing: Urine Dip Bedside Urine Glucose 250 mg/dl Bedside Urine Bilirubin - Negative Bedside Urine Ketone - Negative Urine Specific [place] 1.010 Bedside Urine Occult Blood - Negative Bedside Urine pH 6.0 Bedside Urine Protein - Negative Bedside Urine Urobilinogen - Negative Bedside Urine Nitrite - Negative Bedside Urine Leukocytes - Negative Esterase Imaging Data CT scan - abdomen/pelvis: Radiologist's Impression: [address] [address] [address] Scan Report Signed Patient: Muna Swift MR#: [id number] : 1990 Acct:[id number] Age/Sex: 31 / F Date of Service: 02/20/22 Loc: ED Accession Number: [id number] ?? Procedure: CT abdomen pelvis w con Ordering Provider: Mirna Valdez MD PROCEDURE:? CT ABDOMEN PELVIS W CON ? INDICATIONS:? severe RUQ pain.? compare to scan 02/12 ? TECHNIQUE:? After the administration of oral and IV contrast, axial sections were acquired from the lung bases to the pubic symphysis.? Coronal and sagittal reformats were performed.? For radiation dose reduction, the following was used:? automated exposure control, adjustment of mA and/or kV according to patient size. ? COMPARISON:? [facility], CT, CT KUB, 03/17/2019, 17:54.? [facility], CT, CT ABDOMEN PELVIS W CON, 02/27/2019, 20:27.? [facility], CT, CT ABDOMEN PELVIS W CON, 02/12/2022, 16:07.? Outside Film, CR, XR CHEST 2 VIEWS, 03/25/2020, 17:45. ? FINDINGS:? Image quality:? Excellent.? ? Lung bases:? Unremarkable.? ? Heart:? No significant findings. ? ? ABDOMEN: Liver: Diffuse fatty liver infiltration is noted.? The liver demonstrates enlarged size and no focal lesions. Gallbladder:? Removed.? ? Biliary ducts:? Unremarkable.? ? Pancreas:? Unremarkable.? ? Spleen:? Unremarkable.? ? Adrenal Glands:? Unremarkable.? ? Kidneys and Ureters:? Unremarkable.? ? No hydronephrosis is seen on either side. ? Stomach and Bowel:? Stomach, small bowel loops, and colon are unremarkable.? Peritoneum:? No abnormal intraperitoneal fluid.? No free air.? ? Ventral Wall: ? No hernia.? Abdominal Nodes:? No retroperitoneal or mesenteric adenopathy by size criteria.? Vessels:? Aorta and inferior vena cava are normal in size.? ? PELVIS: Pelvic Organs:? This patient is status post hysterectomy. No adnexal masses are seen. ? ? ? Bladder:? Unremarkable.? ? Pelvic Nodes: No enlarged lymph nodes.? Miscellaneous: No inguinal hernias are seen. ? ? ? Bones:? Minimal S shaped scoliotic curvature is seen. ? ? IMPRESSION:? ? A cause of right upper quadrant pain is not seen. ? Comparison is made to the 02/12/2022 examination and no significant interval c hanges are seen. ? Status post cholecystectomy, without biliary dilatation. ? There is an enlarged, fatty liver seen, without a focal liver abnormality identified. ? Normal appearing kidneys, without hydronephrosis. ? No dilated loops of bowel are seen. ? ? ? Incidental note is made of: Minimal S shaped scoliotic curvature Hysterectomy ? ? Dictated by: Nigel Escudero M.D. on 02/20/2022 at 17:08 ? ? Approved by: Nigel Escudero M.D. on 02/20/2022 at 17:14 ? ECG Data Interpretation: Normal sinus rhythm normal EKG rate 95 MDM Narrative Medical decision making narrative: Appropriate for discharge home. Exam and laboratory studies and imaging are reassuring. Patient will receive referral to General surgery. Return precautions reviewed with her. Not toxic at discharge. Pain is controlled at time of discharge Discharge Plan Departure Patient Disposition: Home Clinical Impression: Abdominal pain Instructions: DI for Abdominal Pain-Adult Activity Restrictions/Additional Instructions: No driving operating machinery tonight. See family doctor in a week for re- evaluation. May continue home medications. Please call general surgery office on Wednesday, referral has been given to you, for re-evaluation of your ongoing abdominal discomfort and pain. Return if worse if any questions or concerns Prescriptions: No Action glimepiride 2 mg tablet See Rx Instructions .ROUTE .COMPLEX Qty: 90 3RF Dose Instruction: TAKE 1 TABLET BY MOUTH DAILY Rx Instructions: TAKE 1 TABLET BY MOUTH DAILY famotidine [Pepcid] 20 mg tablet 20 mg PO DAILY acetaminophen [Tylenol] 325 mg capsule 650 mg PO Q6H PRN lithium carbonate 300 mg tablet extended release 300 mg PO DAILY Qty: 30 11RF hydrocodone-acetaminophen 5-325 mg tablet 1 tab PO Q8H PRN (Reason: pain) 10 Days Qty: 10 0RF ondansetron HCl 4 mg tablet 4 mg PO Q8H PRN (Reason: nausea and vomiting) Qty: 60 4RF omeprazole 20 mg capsule,delayed release(DR/EC) 20 mg PO DAILY Label Comments: take 1 capsule by mouth every morning before breakfast Referrals: Shital Schmidt MD [Physician] - Mraia Luisa Lux DO [Primary Care Provider] - Visit Report Forms: Patient Portal/API
--- NOTE | 2022-02-20 15:19 | DI.RAD.S_ITS ---
PROCEDURE: XR ABDOMEN 1V INDICATIONS: acute abdominal pain TECHNIQUE: One view of the abdomen acquired. COMPARISON: [facility], CT, CT ABDOMEN PELVIS W CON, 02/12/2022, 16:07. FINDINGS: Surgical changes and devices: Surgical clips in right upper quadrant compatible with prior cholecystectomy. Bowel: Bowel gas pattern is nonobstructive. Soft tissues: No suspicious abdominal calcifications. Visualized solid organ contours appear normal in size. Bones: No suspicious bony lesions. IMPRESSION: Abdomen without acute radiographic abnormalities. Dictated by: Joao Vaughan M.D. on 02/20/2022 at 15:53 Approved by: Joao Vaughan M.D. on 02/20/2022 at 15:54
[2022-02-20 15:43] LABS: Add Manual Diff / Slide Review NO; Alanine Aminotransferase 57 IU/L (<35); Albumin 4.4 g/dL (3.5-5.0); Albumin Globulin Ratio 1.3 (1.0-2.8); Alkaline Phosphatase 98 U/L (38-126); Aspartate Aminotransferase 45 IU/L (14-36); BUN Creatinine Ratio 9.4 (6-22); Basophils Absolute Auto 100 /uL (0-100); Basophils Percent Auto 0.5 % (0-2); Bilirubin Total 0.4 mg/dL (0.2-1.3); Blood Urea Nitrogen 5 mg/dL (7-17); Carbon Dioxide 21 mmol/L (22-32); Chloride 103 mmol/L (98-107); Eosinophils Absolute Auto 200 /uL (0-450); Eosinophils Percent Auto 1.3 % (2-4); Estimated Glomerular Filt Rate > 60 mL/min (>60); Globulin 3.4 g/dL (1.7-4.1); Glucose 297 mg/dL (70-100); HEMOLYSIS < 15 (0-50); Hematocrit 43.6 % (36-46); Hemoglobin 15.2 g/dL (12.0-16.0); Lipase 113 U/L (23-300); Lymphocytes Absolute Auto 2200 /uL (1100-4500); Lymphocytes Percent Auto 18.3 % (25-40); Mean Corpuscular HGB Conc 34.7 % (30-36); Mean Corpuscular Hemoglobin 29.6 PG (26-34); Mean Corpuscular Volume 85.1 fL (80-100); Monocytes Absolute Auto 500 /uL (0-900); Monocytes Percent Auto 3.9 % (3-14); Neutrophils Absolute Auto 9300 /uL (1500-7000); Platelet Count 195 X10^3/uL (150-400); Potassium 4.1 mmol/L (3.4-5.1); Red Blood Cell Count 5.13 X10^6/uL (4.0-5.2); Red Cell Distribution Width 14.1 % (11.6-14.8); Sodium 138 mmol/L (137-145); Total Protein 7.8 g/dL (6.3-8.2); White Blood Cell Count 12.2 X10^3/uL (4.5-11.0)
[2022-02-20] MEDS: SODIUM CHLORIDE 0.9% 1,000 ML 1000 ML IV (15:50)
[2022-02-20] MEDS: KETOROLAC 30 MG/ML VIAL 15 MG IV (15:51)
[2022-02-20] MEDS: ONDANSETRON 4 MG/2 ML INJ IV ×2 (15:51→18:14)
[2022-02-20 16:26] LABS: Appearance Urine UA CLEAR; Bilirubin Urine UA NEGATIVE (NEGATIVE); Color Urine UA YELLOW; Glucose Urine UA 1+ g/dL (Negative); Ketones Urine UA NEGATIVE (NEGATIVE); Leukocyte Esterase Urine UA NEGATIVE (NEGATIVE); Nitrite Urine UA NEGATIVE (Negative); Occult Blood Urine UA NEGATIVE (Negative); Protein Urine UA NEGATIVE (Negative); Urobilinogen Urine UA 0.2 E.U./dL (0.2)
[2022-02-20 16:36] LABS: RBC Urine None Seen (0-5/HPF); Squamous Epithelial Cell Urine 1-5 /HPF (0-5/HPF); WBC Urine 0-1/HPF (0-5/HPF); pH Urine UA 6.5 (4.5-8.0)
[2022-02-20 16:37] LABS: Bacteria Urine Few (2-10); Culture Indicated Urine Specimen Cultured
--- NOTE | 2022-02-20 17:50 | DI.CT.S_ITS ---
PROCEDURE: CT ABDOMEN PELVIS W CON INDICATIONS: severe RUQ pain. compare to scan 02/12 TECHNIQUE: After the administration of oral and IV contrast, axial sections were acquired from the lung bases to the pubic symphysis. Coronal and sagittal reformats were performed. For radiation dose reduction, the following was used: automated exposure control, adjustment of mA and/or kV according to patient size. COMPARISON: [facility], CT, CT KUB, 03/17/2019, 17:54. [facility], CT, CT ABDOMEN PELVIS W CON, 02/27/2019, 20:27. [facility], CT, CT ABDOMEN PELVIS W CON, 02/12/2022, 16:07. Outside Film, CR, XR CHEST 2 VIEWS, 03/25/2020, 17:45. FINDINGS: Image quality: Excellent. Lung bases: Unremarkable. Heart: No significant findings. ABDOMEN: Liver: Diffuse fatty liver infiltration is noted. The liver demonstrates enlarged size and no focal lesions. Gallbladder: Removed. Biliary ducts: Unremarkable. Pancreas: Unremarkable. Spleen: Unremarkable. Adrenal Glands: Unremarkable. Kidneys and Ureters: Unremarkable. No hydronephrosis is seen on either side. Stomach and Bowel: Stomach, small bowel loops, and colon are unremarkable. Peritoneum: No abnormal intraperitoneal fluid. No free air. Ventral Wall: No hernia. Abdominal Nodes: No retroperitoneal or mesenteric adenopathy by size criteria. Vessels: Aorta and inferior vena cava are normal in size. PELVIS: Pelvic Organs: This patient is status post hysterectomy. No adnexal masses are seen. Bladder: Unremarkable. Pelvic Nodes: No enlarged lymph nodes. Miscellaneous: No inguinal hernias are seen. Bones: Minimal S shaped scoliotic curvature is seen. IMPRESSION: A cause of right upper quadrant pain is not seen. Comparison is made to the 02/12/2022 examination and no significant interval changes are seen. Status post cholecystectomy, without biliary dilatation. There is an enlarged, fatty liver seen, without a focal liver abnormality identified. Normal appearing kidneys, without hydronephrosis. No dilated loops of bowel are seen. Incidental note is made of: Minimal S shaped scoliotic curvature Hysterectomy Dictated by: Nigel Escudero M.D. on 02/20/2022 at 17:08 Approved by: Nigel Escudero M.D. on 02/20/2022 at 17:14
[2022-02-20] MEDS: HYDROMORPHONE 0.5 MG INJ IV (18:14)
== END 2022-02-20 19:57 | disposition home or self-care (01) ==
PROVIDERS: Emergency Medicine; Emergency Provider Emergency Medicine; PCP Family Medicine
DX: R10.11 Right upper quadrant pain (principal); R11.2 Nausea with vomiting, unspecified
CPT/HCPCS: 36415; 74018; 74177; 80053; 81001; 81003; 83690; 83735; 85025; 87086; 93005; 93010; 96361; 96374; 96375; 96376; 99284; J1170; J1885; J2405; Q9967

== ENCOUNTER → 2022-03-11 09:52 | Outpatient (CLI) | payer OTHER, SELFPAY ==
[2022-03-11 10:46] LABS: Influenza A - CEPHEID Flu A NEGATIVE (NEGATIVE); Influenza B - CEPHEID Flu B NEGATIVE (NEGATIVE); Respiratory Syncytial Virus Negative (Negative)
[2022-03-11 11:24] LABS: COVID-19 CEPHEID 4-PLEX PCR Negative (Negative)
== END ==
PROVIDERS: PCP Family Medicine; Visit Provider Family Medicine
DX: R05.9 Cough, unspecified (principal)
CPT/HCPCS: 0241U

== ENCOUNTER → 2022-04-08 10:31 | Outpatient (CLI) | payer OTHER, SELFPAY ==
[2022-04-08 11:21] LABS: COVID19 -Nasal RAPID Negative (Negative)
== END ==
PROVIDERS: PCP Family Medicine; Visit Provider Surgery
DX: Z20.822 Contact with and (suspected) exposure to COVID-19 (principal); Z01.812 Encounter for preprocedural laboratory examination
CPT/HCPCS: 87635; C9803

== ENCOUNTER 2022-04-09 12:29 | Day surgery (SDC) | payer OTHER, SELFPAY ==
--- NOTE | 2022-04-09 | PATH_ITS ---
[facility] Accession Number: [id number] . 01 Material submitted: . PART A: duodenum - DUODENAL PART B: stomach - ANTRUM PART C: stomach - GASTRIC BODY . 01 Diagnosis: A. Duodenum, Biopsy: Duodenal mucosa with no diagnostic abnormality. Negative for active inflammation, features of sprue, dysplasia, or malignancy. . B. Antrum, Biopsy: Gastric mucosa with mild chronic inflammation. No Helicobacter pylori organisms identified on immunohistochemical evaluation. No intestinal metaplasia, dysplasia, or malignancy identified. . C. Gastric Body, Biopsy: Gastric oxyntic mucosa with minimal chronic nonspecific inflammation. No Helicobacter pylori organisms identified on H/E stain. No intestinal metaplasia, dysplasia, or malignancy identified. . [facility] 04/14/2022 1255 Local . 01 Electronically signed: . Abby Tay MD, Pathologist NPI- [id number] . 01 Gross description: . Part A: DUODENAL: Received in formalin are 4 fragment(s) of corado, soft tissue measuring 0.5 x 0.2 x 0.1 cm to 0.3 x 0.2 x 0.1 cm submitted entirely in 1 cassette(s) Part B: ANTRUM: Received in formalin are 3 fragment(s) of corado, soft tissue measuring 0.5 x 0.2 x 0.1 cm to 0.3 x 0.2 x 0.2 cm submitted entirely in 1 cassette(s) Part C: GASTRIC BODY: Received in formalin is 1 fragment(s) of corado, soft tissue measuring 0.3 x 0.2 x 0.2 cm submitted entirely in 1 cassette(s) /CPE 04/10/2022 0537 Local . 01 Microscopic: . B. An immunohistochemical stain was performed to evaluate for Helicobacter organisms and is negative. The control stain showed appropriate reactivity. . * This test was developed and its performance characteristics determined by [facility]. It has not been cleared or approved by the U.S. Food and Drug Administration. The FDA has determined that such clearance or approval is not necessary. This test is used for clinical purposes. It should not be regarded as investigational or for research. . 01 Pathologist provided ICD-10: K29.30, R10.9 . 01 CPT . 186130, 385167, 649174, C55559 Specimen Comment: A courtesy copy of this report has been sent to [phone] Performed at: [facility] [address] [place] [address], [place], [place] [id number] MD Edgar Sr MD Phone: [phone]
[2022-04-09 13:25] VITALS: BP 129/79; PULSE 102; RESP 20; TEMP 36.4; O2SAT 97; BMI 36.6
[2022-04-09] MEDS: LACTATED RINGERS 1,000 ML 42 ML IV (13:32)
--- NOTE | 2022-04-09 13:55 | P.HP_ITS ---
History of Present Illness History of Present Illness Date Patient Seen: 04/09/22 Time Patient Seen: 13:56 Chief complaint: EGD Narrative: Muna is here for her EGD. Please see the office note from February for details. She reports no changes to her symptoms since that visit. Patient History Medical History (Updated 04/09/22 @ 13:57 by Cornelio Horn MD) Allergies (~1999) Anemia (~2012) Anxiety (~2020) Asthma Benign tumor of groin Bipolar 1 disorder (~2004) Carpal tunnel syndrome Chicken pox Chronic abdominal pain Chronic back pain Depression (~2004) Diabetes (~2017) Endometriosis (~2014) GERD (gastroesophageal reflux disease) (~2017) Heavy menstrual period (~1999) Hemorrhoid (~2007) History of recurrent ear infection (~2019) History of urinary incontinence (~2017) Kidney stones (~2016) Migraines (~1999) Multiple sclerosis Obesity Ovarian cyst (~2011) Painful menstrual periods (~1999) PTSD (post-traumatic stress disorder) (~2008) Skin sore (~2018) Sleep apnea (~2016) Tobacco dependence Type 2 diabetes mellitus without complication, with no history of insulin use Surgical History Anesthesia H/O hernia repair (~2014) H/O: hysterectomy (~2014) History of appendectomy (~2012) History of tonsillectomy (~1998) Hx of cholecystectomy (~2013) Status post cholecystectomy Status post hysterectomy Tumor (~2016) Family & Social History Family History Father Diabetes mellitus History of heart disease Stroke Mother Hypertension Mental health problem Sister Mental health problem Grandfather Lung cancer Family/Other Mental health problem Social History: household members spouse,children Tobacco & Substance use: Smoking Status Current every day smoker alcohol intake current alcohol intake frequency 0-2 drinks per day Substance Use Type does not use Meds Home Medications and Allergies Home Medications Medication Instructions Recorded Confirmed Type omeprazole 20 mg capsule,delayed 20 mg PO DAILY 02/14/19 03/11/22 History release acetaminophen 325 mg capsule 650 mg PO Q6H PRN 02/18/22 03/11/22 History (Tylenol) famotidine 20 mg tablet (Pepcid) 20 mg PO DAILY 02/18/22 03/11/22 History lithium carbonate 300 mg 300 mg PO DAILY Bipolar #30 tabs 02/18/22 03/11/22 Rx tablet,extended release ondansetron HCl 4 mg tablet 4 mg PO Q8H PRN nausea and 02/18/22 03/11/22 Rx vomiting #60 tabs blood sugar diagnostic (Accu-Chek #100 ea 02/25/22 03/11/22 Rx Guide test strips) blood-glucose meter (Advocate #1 ea 02/25/22 03/11/22 Rx Blood Glucose Monitor) glimepiride 4 mg tablet See Rx Instructions .Route 02/25/22 04/09/22 Rx .COMPLEX #90 tabs lancets (Accu-Chek Softclix #100 ea 02/25/22 03/11/22 Rx Lancets) amitriptyline 10 mg tablet 20 mg PO BEDTIME #60 tabs 03/11/22 03/11/22 Rx hydrocodone 5 mg-acetaminophen 325 1 tab PO BID PRN pain 30 days #60 03/27/22 Rx mg tablet tabs Allergies Allergy/AdvReac Type Severity Reaction Status Date / Time diphenhydramine Allergy Severe Anaphylaxis Verified 04/09/22 13:23 amoxicillin Allergy Intermediate Rash Verified 04/09/22 13:23 metformin Allergy Intermediate Rash Verified 04/09/22 13:23 Penicillins Allergy Intermediate Verified 04/09/22 13:23 Sulfa (Sulfonamide Allergy Intermediate Rash Verified 04/09/22 13:23 Antibiotics) Exam Vital Signs (past 8 hours): - 04/09/22 13:25 Temperature 97.5 F L Pulse Rate 102 H Respiratory Rate 20 Blood Pressure 129/79 Pulse Oximetry 97 Oxygen Delivery Method Room Air Oxygen Delivery Method Room Air Const Nutritional Appearance: obese Orientation: alert and awake Assessment & Plan Assessment and plan (1) Abdominal pain: Status: Acute Plan We reviewed the risks and benefits of EGD to rule out causes for her symptoms and she would like to proceed. Time Spent With Patient Critical Care time: I spent a total of [] minutes of critical care time on this patient's care today ; this time is exclusive of procedural time.
--- NOTE | 2022-04-09 14:12 | PM.OP.EGD ---
Operative Date/Time/Diagnoses Date of procedure: 04/09/22 Time of procedure: 14:12 Pre-op diagnosis: Abdominal pain Post-op diagnosis: same Procedure & Clinicians Study performed: Esophagogastroduodenoscopy Same procedure as scheduled: Yes Surgeon: Cornelio Horn Procedure Notes Procedure in detail: Surgeon: Cornelio Horn MD Anesthesia: Alexander Lopez timeout was performed. A bite blocked was placed. The patient was positioned in the left lateral decubitus position. Anesthesia was administered. The endoscope was inserted through the bite block and passed through the esophagus and stomach and into the duodenum. The duodenal mucosa appeared normal. Random biopsies were taken. The scope was withdrawn into the duodenal bulb and no other abnormalities were noted. The scope was withdrawn into the stomach. Random biopsies were taken from the antrum. There were some small nonbleeding ulcers in the body of the stomach which were biopsied. The rest of the stomach was normal. The scope was retroflexed and a very small hiatal hernia was observed. The scope was withdrawn into the esophagus and no other abnormalities were noted. The remainder of the esophagus was normal. The scope was withdrawn. The patient was awakened and brought to recovery. Sedation time: 10 minutes Findings: Gastric ulcers Post-procedure Disposition: PACU
[2022-04-09 14:14] VITALS: BP 98/77; PULSE 109; RESP 12; TEMP 36.6; O2SAT 95
[2022-04-09 14:19] VITALS: BP 128/82; PULSE 108; RESP 14; O2SAT 99
[2022-04-09 14:24] VITALS: BP 140/80; PULSE 95; RESP 14; O2SAT 99
[2022-04-09] MEDS: OXYCODONE/ACETAMINOPHEN 5/325 TABLET 1 TAB PO (14:30)
[2022-04-09 14:40] VITALS: BP 140/79; PULSE 95; RESP 18; TEMP 36.6; O2SAT 94
== END 2022-04-09 14:40 | disposition home or self-care (01) ==
PROVIDERS: PCP Family Medicine; Referring Provider Surgery; Visit Provider Surgery
PROC: 0DJ08ZZ Inspection of Upper Intestinal Tract, Via Natural or Artificial Opening Endoscopic (ICD-10-PCS; CPT 43235; principal; 2022-04-09 13:45)
DX: K29.50 Unspecified chronic gastritis without bleeding (principal); K44.9 Diaphragmatic hernia without obstruction or gangrene; K25.9 Gastric ulcer, unspecified as acute or chronic, without hemorrhage or perforation
CPT/HCPCS: 43239; J2704

== ENCOUNTER → 2022-05-09 09:00 | Outpatient (CLI) | payer OTHER, SELFPAY ==
[2022-05-09 09:47] LABS: Hemoglobin A1C% w Est Avg Glu 7.3 % (4.0-6.0)
[2022-05-09 10:11] LABS: Lithium 0.3 mmol/L (0.6-1.2)
[2022-05-09 10:22] LABS: Creatinine Urine Random 32.9 mg/dL
[2022-05-09 10:28] LABS: Microalbumin Urine Random < 0.6 mg/dL (0-1.6)
== END ==
PROVIDERS: PCP Family Medicine; Referring Provider Family Medicine; Visit Provider Family Medicine
DX: E11.65 Type 2 diabetes mellitus with hyperglycemia (principal); F31.9 Bipolar disorder, unspecified
CPT/HCPCS: 36415; 80178; 82043; 82570; 83036